=== PATIENT | female | born 1960 | race Caucasian/White ===

== ENCOUNTER → 2016-07-21 | Outpatient (CLI) | payer OTHER ==
[~2016-07-21] MED LIST: ASPI81CH CHEW; ATOR1TAB18 PO; Aspirin Chew PO; LISI10TA3 PO; METO25TA3 PO; PRAS10TA PO
[2016-07-21 13:42] LABS: ALKALINE PHOSPHATASE 80 U/L (45-117); ALT (GPT) 20 U/L (10-53); ANION GAP 8 MEQ/L (5-15); AST (GOT) 14 U/L (15-37); BICARBONATE 28.3 MEQ/L (21.0-32.0); BLOOD UREA NITROGEN 16 MG/DL (7-18); CHLORIDE 104 MEQ/L (98-107); GLOMERULAR FILTRATION RATE 93 ML/MIN (>89); GLUCOSE,FASTING 85 MG/DL (74-99); HDL CHOLESTEROL 56.1 MG/DL (40.0-60.0); LDL CHOLESTEROL 180 MG/DL (0-99); POTASSIUM 4.3 MEQ/L (3.5-5.1); SODIUM (NA) 140 MEQ/L (136-145); TOTAL BILIRUBIN ADULT 0.5 MG/DL (0.2-1.0)
[2016-07-21 16:26] LABS: BLOOD, URINE NEG (NEG); COMMENT (UR) CULT NOT INDICATED; CULTURE IF INDICATED CULT NOT INDICATED; GLUCOSE,URINE NEG (NEG); KETONE, URINE NEG (NEG); NITRITE,URINE NEG (NEG); SQUAMOUS EPITHELIAL CELL URINE <1 /hpf (0-5); URINE COLOR LIGHT-YELLOW (YELLW/STRAW)
== END ==
LOC: PLAB 04-23 08:10
PROVIDERS: ATTEND Family Medicine
DX: I10 Essential (primary) hypertension (principal); E66.01 Morbid (severe) obesity due to excess calories; E78.00 Pure hypercholesterolemia, unspecified
CPT/HCPCS: 80053; 80061; 81001; 84443

== ENCOUNTER 2016-10-13 00:43 | Inpatient (IN) | payer OTHER ==
[2016-10-13] VITALS (20 sets, daily range): BP systolic 121–160; BP diastolic 74–92; PULSE 50–80; RESP 16–24; TEMP 98–98.7; O2SAT 96–99
[~2016-10-13] VITALS: Ht 172.7 cm; Wt 104.5 kg
[2016-10-13] MEDS ORDERED: SODIUM CHLOR 0.9% 1000 ML INJ 1,000 ML IV ONE (00:45)
[2016-10-13] MEDS ORDERED: NITROGLYCERIN-DEXTROSE INJ 250 ML IV SCH (00:45)
[2016-10-13] MEDS ORDERED: HEPARIN SODIUM - IV 10,000 UNITS/10 ML VIAL IV STA (00:45)
[2016-10-13] MEDS ORDERED: ASPIRIN 81 MG CHEW TAB PO STA (00:45)
[2016-10-13] MEDS ORDERED: SODIUM CHLORIDE 0.9% FLUSH 10 ML FLUSH IVF PRN (00:45)
[2016-10-13] MEDS ORDERED: NITROGLYCERIN 0.4 MG SL 25 TABS/BTL SL STA (00:45)
--- NOTE | 2016-10-13 00:58 | PD ---
HPI Chief Complaint: STEMI Time Seen by Provider: 00:45 Travel History International Travel<30 days: No Contact w/Intl Traveler<30days: No History of Present Illness HPI The patient is a 55 year old female who presents to the [facility] emergency department with a history of sudden onset at approximately midnight of 20/10 right-sided chest pain. The patient reports that the pain is an aching sensation and radiates into the right shoulder, right shoulder blade and right arm. The patient reports that the pain is been constant. She reports having associated shortness of breath or diaphoresis. She denies having any vomiting associated with this. She reports that she has had chest pain in the past. Most recently she had an episode of chest pain that resolved on its own at 3 AM yesterday. The patient reports that she last had a stress test done that was reportedly unremarkable a few months ago. She denies ever having a cardiac catheterization. She reports having a history of hypertension and hyperlipidemia. She reports that her high blood pressure medication was discontinued after an episode of syncope and normal blood pressure subsequent to that. She reports that she smokes a pack of cigarettes per day. The patient prior to arrival was given by ambulance services 2 baby aspirin, a total of 4 sublingual nitroglycerin. The patient reports that the pain level is down to a 10 out of 10 in severity. The patient denies any recent fevers, cough, congestion, neck pain, abdominal pain, vomiting, diarrhea, urinary symptoms, or neurologic symptoms. [facility] Past Medical History Narrative Medical The patient's past medical history is significant for hyperlipidemia, prior history of hypertension, prior history of syncope. Cancer: No Cardiovascular Problems: Yes (HX: HTN) High Cholesterol: Yes Diabetes: No Diminished Hearing: No Endocrine: No Genitourinary: No Hepatitis: No Hiatal Hernia: No Hypertension: Yes (ok now) Immune Disorder: No Musculoskeletal: Yes Neurologic: No Psychiatric: No Reproductive: No Respiratory: Yes (hx pneumonia) Immunizations Current: No Thyroid Disease: No Past Surgical History Narrative Surgical The patient's past surgical history significant for an appendectomy, cholecystectomy Abdominal Surgery: Yes (cholecystectomy appendectomy at the same time) AICD: No Appendectomy: Yes Cholecystectomy: Yes Joint Replacement: No Pacemaker: No Other Surgery: Yes Social History Alcohol Use: Yes (1 GLASS WINE MONTHLY) Tobacco Use: Yes (1 PPD) Substance Use: No Allergies-Medications (Allergen,Severity, Reaction): Coded Allergies: No Known Allergies (Verified , 10/13/16) Reported Meds & Prescriptions Reported Meds & Active Scripts Active No Active Prescriptions or Reported Medications Narrative Medication She reports that she takes a lipid-lowering agent, however she cannot recall the name of it. Review of Systems General / Constitutional: No: Fever Eyes: No: Visual changes HENT: No: Headaches Cardiovascular: Positive: Chest Pain or Discomfort, Dyspnea on exertion Respiratory: Positive: Shortness of Breath, No: Cough Gastrointestinal: No: Vomiting, Abdominal Pain, Indigestion, Loss of Appetite Genitourinary: No: Dysuria Musculoskeletal: No: Pain Skin: No Rash Neurologic: No: Weakness, Focal Abnormalities, Change in Mentation, Slurred Speech, Sensory Disturbance Psychiatric: No: Depression Endocrine: No: Polydipsia Hematologic/Lymphatic: No: Easy Bruising Physical Exam Narrative General: The patient is a well-developed well-nourished female, uncomfortable appearing on arrival. Head and Neck exam: Head is normocephalic atraumatic. Eyes: EOMI, pupils are equal round and reactive to light. Nose: Midline septum with pink mucous membranes Mouth: Dentition unremarkable. Moist mucus membranes. Posterior oropharynx is not erythematous. No tonsillar hypertrophy. Uvula midline. Airway patent. Neck: No palpable lymphadenopathy. No nuchal rigidity. No thyromegaly. Cardiovascular: Regular rate and rhythm without murmurs, gallops, or rubs. No pulse deficit to the extremities and simultaneous auscultation and palpation of her radial artery. Lungs: Clear to auscultation bilaterally. No wheezes, rhonchi, or rales. Abdomen: Soft, without tenderness to palpation in all 4 quadrants of the abdomen. No guarding, rebound, or rigidity. Normal bowel sounds are audible. No tenderness on palpation of McBurney's point. Extremities: No clubbing, cyanosis, or edema. 2+ pulses in all 4 extremities. No calf tenderness on palpation. Neurologic Exam: Grossly nonfocal. Skin Exam: No rash noted. Intact skin that is warm and dry. Data Data Last Documented VS Vital Signs Date Time Temp Pulse Resp B/P Pulse Ox O2 Delivery O2 Flow Rate FiO2 10/13/16 00:43 98.2 65 24 160/92 99 Orders Complete Blood Count With Diff (10/13/16 00:45) I-Stat Profile (10/13/16 00:45) I-Stat Creatinine (10/13/16 00:45) Prothrombin Time / Inr (Pt) (10/13/16 00:45) Act Partial Throm Time (Ptt) (10/13/16 00:45) B-Type Natriuretic Peptide (10/13/16 00:45) Chest, Single Ap (10/13/16 00:45) Electrocardiogram (10/13/16 00:45) Oxygen Administration (10/13/16 00:45) Iv Access Insert/Monitor (10/13/16 00:45) Oximetry (10/13/16 00:45) Sodium Chlor 0.9% 1000 Ml Inj (Ns 1000 M (10/13/16 00:45) Sodium Chloride 0.9% Flush (Ns Flush) (10/13/16 00:45) Aspirin Chew (Aspirin Chew) (10/13/16 00:45) Nitroglycerin Sl (Nitrostat Sl) (10/13/16 00:45) Nitroglycerin-Dextrose Inj (Nitroglyceri (10/13/16 00:45) Heparin Inj (Heparin Inj) (10/13/16 00:45) Aspirin Chew (Aspirin Chew) (10/13/16 09:00) Aspirin Chew (Aspirin Chew) (10/13/16 09:00) Admit Order (Ed Use Only) (10/13/16 01:35) Labs Laboratory Tests Test 10/13/16 00:50 White Blood Count 8.3 TH/MM3 Red Blood Count 4.81 MIL/MM3 Hemoglobin 14.4 GM/DL Hematocrit 41.6 % Mean Corpuscular Volume 86.4 FL Mean Corpuscular Hemoglobin 30.0 PG Mean Corpuscular Hemoglobin 34.7 % Concent Red Cell Distribution Width 13.6 % Platelet Count 240 TH/MM3 Mean Platelet Volume 8.7 FL Neutrophils (%) (Auto) 44.3 % Lymphocytes (%) (Auto) 45.8 % Monocytes (%) (Auto) 7.9 % Eosinophils (%) (Auto) 1.3 % Basophils (%) (Auto) 0.7 % Neutrophils # (Auto) 3.7 TH/MM3 Lymphocytes # (Auto) 3.8 TH/MM3 Monocytes # (Auto) 0.7 TH/MM3 Eosinophils # (Auto) 0.1 TH/MM3 Basophils # (Auto) 0.1 TH/MM3 CBC Comment DIFF FINAL Differential Comment Prothrombin Time 11.2 SEC Prothromb Time International 1.0 RATIO Ratio Activated Partial 23.1 SEC Thromboplast Time B-Type Natriuretic Peptide 17 PG/ML MDM Medical Decision Making Medical Screen Exam Complete: Yes Emergency Medical Condition: Yes Medical Record Reviewed: Yes Interpretation(s) Last Impressions Chest X-Ray 10/13/16 0045 Signed Impressions: Service Date/Time: Thursday, October 13, 2016 00:41 - CONCLUSION: No acute disease. Lisandro Lane MD Differential Diagnosis STEMI, versus acute coronary syndrome, versus pericarditis Narrative Course During the course of the patients emergency department visit, the patients history, examination, and differential diagnosis were reviewed with the patient. The patient had IV access obtained and blood work sent for analysis. The patient was placed on a cracking and fanning machine operator with oximetry and blood pressure monitoring. An EKG was done on arrival that confirmed ST segment elevation in the anteroseptal leads. A STEMI alert was called. Dr. Rae the needle loom operator helper was called. He did agree to accept the patient for evaluation in the cardiac catheterization lab acutely. The patient was provided heparin by bolus, nitroglycerin drip was started. The patient was given additional 162 mg of aspirin by mouth. The patients laboratory studies were reviewed and remarkable for white count of 8.3, hemoglobin 14.4, platelets 240 with 45.8 lymphocytes, i-STAT with creatinine reveals a sodium of 138, potassium 6.4 which was repeated in 3.9, chloride 106, BUN 23, creatinine 0.6, glucose 111, BNP is 17. Radiology studies were reviewed and remarkable for a chest x-ray that showed no acute abnormality. The patient was transported by me and the nursing staff to the Cardiac laborer livestock. We awaited arrival of the cardiac catheterization. The patient's case was handed over to Dr. Rae upon his arrival at the cardiac catheterization lab. The patient was admitted to the hospital in guarded condition and sent to a bed under the care of the needle loom operator helper, Dr. Rae. Critical Care Narrative Aggregate critical care time was 35 minutes. Time to perform other separately billable procedures was not included in the critical care time. My time did not include minutes spent treating any other patients simultaneously or on activities that did not directly contribute to the patient's treatment. The services I provided to this patient were to treat and/or prevent clinically significant deterioration that could result in: Cardiac arrhythmia, sudden cardiac , respiratory failure, cardiovascular collapse. I provided critical care services requiring my management, as noted below: Chart data review, documentation time, medication orders and management, vital sign assessments/reviewing monitor data, ordering and reviewing lab tests, ordering and interpreting/reviewing x-rays and diagnostic studies, care of the patient and discussion of the patient with the admitting physicians. Physician Communication Physician Communication The patient's case was discussed with Dr. Rae. Diagnosis Primary Impression: STEMI (ST elevation myocardial infarction) Qualified Code: I21.3 - ST elevation myocardial infarction (STEMI), unspecified artery Admitting Information Admitting Physician Requests: Admit Scripts No Active Prescriptions or Reported Meds Kierra Infante MD Oct 13, 2016 00:58
[2016-10-13 01:03] LABS: AUTOMATED NEUTROPHIL # 3.7 TH/MM3 (1.8-7.7); BASOPHIL # 0.1 TH/MM3 (0-0.2); BASOPHIL % 0.7 % (0.0-2.0); EOSINOPHIL # 0.1 TH/MM3 (0-0.4); EOSINOPHIL % 1.3 % (0.0-4.0); HEMATOCRIT 41.6 % (35.0-46.0); HEMO FLAGS DIFF FINAL; LYMPH % 45.8 % (9.0-44.0); LYMPHOCYTE # 3.8 TH/MM3 (1.0-4.8); MEAN CELL VOLUME 86.4 FL (80.0-100.0); MEAN CORPUSCULAR HGB CONC 34.7 % (32.0-36.0); MONO % 7.9 % (0.0-8.0); NEUT % 44.3 % (16.0-70.0); PLATELET COUNT 240 TH/MM3 (150-450); RED BLOOD COUNT 4.81 MIL/MM3 (4.00-5.30); RED CELL DISTRIBUTION WIDTH 13.6 % (11.6-17.2); WHITE BLOOD COUNT 8.3 TH/MM3 (4.0-11.0)
[2016-10-13 01:11] LABS: I-STAT POTASSIUM 6.4 MMOL/L (3.5-4.9)
[2016-10-13 01:16] LABS: APTT (PATIENT) 23.1 SEC (24.3-30.1); PROTHROMBIN TIME - PATIENT 11.2 SEC (9.8-11.6)
--- NOTE | 2016-10-13 01:17 | RADRPT ---
EXAM DATE/TIME: 10/13/2016 00:41 [facility] COMPARISON: No previous studies available for comparison. INDICATIONS : Chest pain, STEMI alert. MEDICAL HISTORY : Hypertension. SURGICAL HISTORY : Appendectomy. Cholecystectomy. ENCOUNTER: Initial ACUITY: 1 day PAIN SCORE: 10/10 LOCATION: Bilateral chest FINDINGS: A single view of the chest demonstrates the lungs to be symmetrically aerated without evidence of mas s, infiltrate or effusion. The cardiomediastinal contours are unremarkable. Osseous structures are intact. CONCLUSION: No acute disease. Lisandro Lane MD on October 13, 2016 at 1:15 Board Certified Radiologist. This report was verified electronically.
[2016-10-13] MEDS ORDERED: MIDAZOLAM HCL 2 MG/2 ML VIAL ONE (01:39)
[2016-10-13] MEDS ORDERED: HEPARIN SODIUM - IV 10,000 UNITS/10 ML VIAL ONE (01:51)
[2016-10-13] MEDS ORDERED: PRASUGREL 10 MG TAB ONE (02:06)
[2016-10-13] MEDS ORDERED: ceFAZolin INJ 1,000 MG VIAL ONE (02:09)
[2016-10-13] MEDS ORDERED: SODIUM CHLOR 0.9% 1000 ML INJ 1,000 ML IV SCH (02:24)
[2016-10-13] MEDS ORDERED: MISC INFORMATION XX ONE (02:30)
[2016-10-13] MEDS ORDERED: ONDANSETRON HCL 4 MG/2 ML VIAL IV PRN (02:30)
[2016-10-13] MEDS ORDERED: ACETAMINOPHEN 325 MG TAB PO PRN ×3 (02:30→21:48)
[2016-10-13] MEDS ORDERED: ATROPINE SULFATE 1 MG/ML VIAL IV PRN (02:30)
[2016-10-13] MEDS ORDERED: PRASUGREL 10 MG TAB PO ONE ×2 (02:30→22:00)
[2016-10-13] MEDS ORDERED: PILL SPLITTER OTHER PRN (02:45)
--- NOTE | 2016-10-13 05:33 | MB ---
cc: ROBERTO MENDEZ DATE OF 11/05/1962 HISTORY October 13, 2016 REASON FOR CONSULTATION STEMI. HISTORY OF PRESENT ILLNESS 55-year-old female with past medical history significant for hypertension, hyperlipidemia and smoker who presented to the hospital with sudden onset of substernal chest pain that started tonight. She describes the pain has an aching sensation that radiates into her right shoulder, right shoulder blade and arm. The pain is constant and is associated with shortness of breath and diaphoresis. She denies fever, cough, palpitations, syncope, lightheadedness, bleeding issues, diarrhea, constipation, abdominal pain. In the emergency department she was started on a nitro drip and a heparin drip and given aspirin. REVIEW OF SYSTEMS Negative except for what is mentioned in the HPI. PAST MEDICAL HISTORY 1. Hyperlipidemia. 2. Hypertension. 3. Syncope. PAST SURGICAL HISTORY 1. Appendectomy. 2. Cholecystectomy. SOCIAL HISTORY Smoker Drinks alcohol socially. No illicit drug use. ALLERGIES No known drug allergies. HOME MEDICATIONS None. PHYSICAL EXAMINATION VITAL SIGNS: Temperature 98, respiratory rate 24, pulse 65, blood pressure 160/ 92. GENERALLY: Awake, alert and oriented x 3, in no acute distress. NECK: No JVD or carotid bruits. HEART: Regular rate and rhythm. No murmurs, rubs or gallops. LUNGS: Clear to auscultation bilaterally. No wheezes or rhonchi or rales. ABDOMEN: Obese. Positive bowel sounds. Soft and nondistended. EXTREMITIES: No cyanosis, no edema. Pulses throughout. EKG Sinus rhythm with ST elevations in the anterior leads, reciprocal changes in the inferior leads. LABORATORY DATA- PENDING ASSESSMENT AND PLAN 55-year-old female who presented with ST elevation myocardial infarction. The patient is currently hemodynamically stable, currently without chest pain. The patient will be taken to emergently to the cardiac crime laboratory analyst for early PCI. The risks, benefits of PCI including but not limited to bleeding, infection, acute kidney injury, emergent bypass surgery, stroke, neurovascular injury and have been explained to the patient. The patient understands the risks and she is willing to proceed. Further therapy to be determined Roberto Mendez MD ENVIRONMENTAL HEALTH TECHNICIAN/RADHA /1:38 AM /5:22 AM NORBERTO
--- NOTE | 2016-10-13 05:50 | MA ---
cc: ROBERTO MENDEZ DATE OF 1960 DATE OF SERVICE October 13, 2016 PROCEDURE PERFORMED 1. Left heart catheterization. 2. Selective right and left coronary angiography. 3. Left ventriculogram. 4. Successful PCI/TAB to LAD. INDICATIONS STEMI. DESCRIPTION OF PROCEDURE Consent signed. The patient was taken emergently to the label paster. The right groin was prepped and draped in sterile fashion. Using 1% lidocaine for local anesthesia and a micropuncture kit, a 6-Stateless sheath was inserted into the right common femoral artery. The right common femoral artery angiography was performed to confirm position of the sheath. Then selective right coronary angiography was performed with a JR-4 diagnostic catheter. Then left coronary angiography was performed with an EBU 3.5 6-Stateless guide. Angiography was taken in multiple views. There was a 100% occlusion of the proximal LAD. The vessel was wired with a Run-Through wire which was anchored distally into the LAD followed by predilation of the occlusion with a 2.5 x 12 balloon. We successfully opened the vessel. Then we inserted and deployed a 2.75x18 and to 2.75x8 drug-eluting stents. The stents were postdilated to high atmosphere with a Non-Compliant 3.0x15 balloon. Final angiographic views revealed good stent apposition and expansion with MAXIME-3 flow. The patient tolerated the procedure well without complications. The patient at the end of the procedure had no chest pain. Estimated blood loss less than 30 cc. Total contrast used 120 cc. The right groin access site was closed with a Perclose device. The patient was loaded with Prasugrel and IV heparin was used for anticoagulation. RESULTS The left ventricular pressure was 116/12 with an LVEDP of 24. The aortic pressure was 116/71 with a mean of 89. Left ventriculography revealed hypokinesis of the anterior wall with an estimated ejection fraction of 40-45%. There was no gradient upon pullback from the left ventricle to the aorta. ANGIOGRAPHY 1. Left main patent with nonobstructive coronary artery disease. 2. LAD 100% occluded in its proximal segment MAXIME-0 flow. 3. Left circumflex patent with MAXIME-3 flow, minimal luminal irregularities, is given collaterals through a weak OM1 branch to the LAD. 4. Right coronary artery is a dominant vessel, has minimal luminal irregularities and a 10% lesion proximally. However, for the most part has nonobstructive coronary artery disease. The PDA is patent and is given collaterals through the septals to the LAD. CONCLUSION 1. Successful PCI/TAB to the LAD in the setting of a STEMI. 2. Mild LV systolic dysfunction with an EF estimated to be at 40-45%. 3. Elevated LVEDP. RECOMMENDATIONS 1. Admit to [facility]. 2. Post-cath care. 3. Early ambulation after bed rest. 4. Gentle IV hydration. 5. Continue dual antiplatelet agent with aspirin and Prasugrel as well as aggressive medical management for secondary preventio of CAD with beta-blockers , TAD inhibitor, high-dose statins and long-acting nitrate. 6. Smoking cessation is strongly advised. 7. 2-Decho before discharge MD REBEKA Gilliam/RADHA /2:21 AM /5:33 AM MTDJacinto
[2016-10-13] MEDS: ASPIRIN 81 MG CHEW TAB PO SCH (08:21)
[2016-10-13] MEDS: METOPROLOL TARTRATE 25 MG TAB PO SCH ×2 (08:21→21:22)
[2016-10-13] MEDS: LISINOPRIL 10 MG TAB PO SCH (09:00)
[2016-10-13] MEDS ORDERED: ASPIRIN 81 MG CHEW TAB CHEW SCH ×2 (09:00)
--- NOTE | 2016-10-13 09:45 | HHI.HP ---
[facility] Service [facility] Primary Care Physician Rahul Butler MD Admission Diagnosis STEMI Diagnoses: Travel History International Travel<30 Days: No Contact w/Intl Traveler <30 Da: No Traveled to Known Affected Are: No Past Family Social History Allergies: Coded Allergies: No Known Allergies (Verified , 10/13/16) Physical Exam Vital Signs Vital Signs Date Time Temp Pulse Resp B/P Pulse Ox O2 Delivery O2 Flow Rate FiO2 10/13/16 03:29 70 10/13/16 03:20 98.0 72 20 130/78 98 10/13/16 00:43 98.2 65 24 160/92 99 Physical Exam GENERAL: This is a well-nourished, well-developed patient, in no apparent distress. SKIN: No rashes, ecchymoses or lesions. Cool and dry. HEAD: Atraumatic. Normocephalic. No temporal or scalp tenderness. EYES: Pupils equal round and reactive. Extraocular motions intact. No scleral icterus. No injection or drainage. ENT: Nose without bleeding, purulent drainage or septal hematoma. Throat without erythema, tonsillar hypertrophy or exudate. Uvula midline. Airway patent. NECK: Trachea midline. No JVD or lymphadenopathy. Supple, nontender, no meningeal signs. CARDIOVASCULAR: Regular rate and rhythm without murmurs, gallops, or rubs. RESPIRATORY: Clear to auscultation. Breath sounds equal bilaterally. No wheezes , rales, or rhonchi. GASTROINTESTINAL: Abdomen soft, non-tender, nondistended. No hepato-splenomegaly , or palpable masses. No guarding. MUSCULOSKELETAL: Extremities without clubbing, cyanosis, or edema. No joint tenderness, effusion, or edema noted. No calf tenderness. Negative Homans sign bilaterally. NEUROLOGICAL: Awake and alert. Cranial nerves II through XII intact. Motor and sensory grossly within normal limits. Five out of 5 muscle strength in all muscle groups. Normal speech. Laboratory Laboratory Tests Test 10/13/16 10/13/16 00:50 03:29 White Blood Count 8.3 Red Blood Count 4.81 Hemoglobin 14.4 Hematocrit 41.6 Mean Corpuscular Volume 86.4 Mean Corpuscular Hemoglobin 30.0 Mean Corpuscular Hemoglobin 34.7 Concent Red Cell Distribution Width 13.6 Platelet Count 240 Mean Platelet Volume 8.7 Neutrophils (%) (Auto) 44.3 Lymphocytes (%) (Auto) 45.8 Monocytes (%) (Auto) 7.9 Eosinophils (%) (Auto) 1.3 Basophils (%) (Auto) 0.7 Neutrophils # (Auto) 3.7 Lymphocytes # (Auto) 3.8 Monocytes # (Auto) 0.7 Eosinophils # (Auto) 0.1 Basophils # (Auto) 0.1 CBC Comment DIFF FINAL Differential Comment Prothrombin Time 11.2 Prothromb Time International 1.0 Ratio Activated Partial 23.1 Thromboplast Time B-Type Natriuretic Peptide 17 Bedside Hemoglobin 14.6 Bedside Hematocrit 43.0 Bedside Sodium 138 Bedside Potassium 6.4 Bedside Chloride 106 Bedside Blood Urea Nitrogen 23 Bedside Creatinine 0.6 Bedside Glucose 111 Result Diagram: 10/13/16 0050 Assessment and Plan Assessment and Plan Patient seen and examined Please refer to admission h & p for details STEMI s/p ctradiac cath with 100% LAD occlusion s/p PCI chest pain resolved some bleeding from Right groin, pressure applied on statin, ASA,BB, Aguilar i, and Effient may need to add long acting nitrate discussed with patient discussed with nursing staff discussed with Franca FELDER Physician Certification 2 Midnight Certification Type: Admission for Inpatient Services Order for Inpatient Services The services are ordered in accordance with Medicare regulations or non- Medicare payer requirements, as applicable. In the case of services not specified as inpatient-only, they are appropriately provided as inpatient services in accordance with the 2-midnight benchmark. Estimated LOS (days): 3 days is the estimated time the patient will need to remain in the hospital, assuming treatment plan goals are met and no additional complications. Post-Hospital Plan: Home Hyacinth Campbell MD Oct 13, 2016 09:45
[2016-10-13] MEDS ORDERED: IOHEXOL 350 MG/ML 100 ML BTL (for Cath Lab) OTHER ONE (10:27)
[2016-10-13] MEDS ORDERED: IOHEXOL 350 MG/ML 50 ML BTL (for Cath Lab) OTHER ONE (10:27)
--- NOTE | 2016-10-13 11:09 | MB ---
cc: REYMUNDO RYAN MD DATE OF CONSULTATION: 10/13/2016 DATE OF : 1960 REASON FOR CONSULTATION Medical management for patient's co-morbidities. HISTORY OF PRESENT ILLNESS This is a 55-year-old obese white female who came into the emergency room with midsternal and right-sided chest pain. The patient notes that she was recently helping her daughter move and noted some chest spine that waxed and waned at 0300 in the morning. The patient states the pain lasted for about a half hour but did go away and she able to rest. The patient was in her usual events of the day which included visiting with some of her family. She lay down to go to sleep at approximately 11:45 and was awakened with a more intense midsternal chest pain that radiated into the right side of her chest. She did note numbness and tingling in her right arm followed by some diaphoresis. The patient called a close family friend who stated that she needed to go to the emergency room. She noted the pain was a 10/10. She denied any neck pain, no abdominal pain, no nausea, no vomiting, no diarrhea, no constipation. The patient denied any headache, she was alert and oriented and was able to give a good history on her current situation. The patient is a tobacco user since her 20s. The patient notes in 2015 that she had a very similar event with chest pain and had a work-up which included a stress test which was negative. At that time the pain was not as severe as this pain and was thought to be related to stress. The patient is now post heart catheterization with stents x2. She is resting in the bed and a fairly good historian. PAST MEDICAL HISTORY 1. Hyperlipidemia. 2. Hypertension. 3. Prior history of syncope. 4. Arthritis. 5. History of pneumonia. PAST SURGICAL HISTORY 1. Cholecystectomy. 2. Appendectomy. ALLERGIES No known allergies. MEDICATIONS Reported medications: Patient notes she has taken some type of lipid medication but does not know the name of it. No other medications. FAMILY HISTORY Heart disease, diabetes, hypertension, CVA. SOCIAL HISTORY The patient has never been , currently lives in her own home. Her mother lives with her. She has been a tobacco user, a pack a day since her 20s. Occasional alcohol intake with a glass of wine. She averages about one glass a month. No other illicit drugs. REVIEW OF SYSTEMS A 12-point review was done. Positives are noted in the HPI which include chest pain, diaphoresis, achy sensation. The patient had a BM yesterday described as her normal routine. She notes she is a coffee drinker. Otherwise systems are negative or unremarkable. PHYSICAL EXAMINATION VITAL SIGNS: Temperature 98, pulse 70, respirations 20, blood pressure 130/78, noted to be 160/92. O2 sat 98 on room air. GENERAL: An obese white female, looks to be her stated age resting in the bed, alert, oriented, cooperative and a good historian. She is talkative. HEENT: Atraumatic, normocephalic. Pupils equal, round, reactive to light and accommodation. Mucous membranes are moist and pink. NECK: Thick, supple. CARDIOVASCULAR: S1, S2. No murmur, rub or gallops appreciated. Heart sounds are mildly distant. She has no edema and pulses are intact. PULMONARY: Lung sounds essentially clear anteriorly and posteriorly with no wheezes, rales or rhonchi. ABDOMEN: Round, soft, nontender, nondistended. Active bowel sounds in all four quadrants. EXTREMITIES: She moves her extremities with purpose. She has equal hand painter bottom. She can overcome resistance in her lower extremities. NEUROLOGIC: Alert and oriented. Speech is clear. PSYCHIATRIC: Appropriate mood and affect. LABORATORY DATA WBC count 8.3, RBC 4.81, hemoglobin 14.4, hematocrit 41.6, platelet count 240, lymphocyte auto count percentage 45.8. INR is 1. Sodium on the POC machine 138, potassium 6.4, chloride 106, BUN 23, creatinine 0.6, glucose 111. BNP is 17. IMAGING DATA Chest x-ray shows no acute disease. ASSESSMENT 1. Non-ST elevation myocardial infarction. The patient is status post heart catheterization with two stents to the LAD. 2. Tobacco abuse. 3. Hypertension. 4. Hyperlipidemia. PLAN Monitor her medical management which will include any medications needed for blood pressure and hyperlipidemia as well as nitrates. The patient is status post cardiac catheterization per Dr. Rae with two stents applied. She is currently on bed rest. Sand bag to the right groin. She is receiving gentle hydration at 100 cc an hour. 2-D echo with Doppler was performed. Currently the patient is on Effient as well as aspirin, low dose Lopressor and p.r.n. The patient is being placed on a heart-healthy diet this a.m. We will also look at a low dose TAD inhibitor. The patient will receive early ambulation after bed rest. Post cath care. She will be maintained on telemetry. We will recheck a BMP today with special attention to her potassium level. In the emergency room the patient was treated with IV heparin, IV nitroglycerin, aspirin chews, IV fluids. She received EKGs and was placed on constant ECG monitoring with O2 and IV access. Dr. Rae of cardiology was called and she was taken to the labor commissioner with successful PCI/TAB to the LAD in the setting of a STEMI. We will monitor her this hospital stay for medical management with Dr. Rae. Thank you very much for the consult. Dictated by: BRADFORD Decker MD MARY LOU Downs/STEVEN /8:33 AM /10:38 AM
[2016-10-13 11:34] LABS: POTASSIUM 3.9 MEQ/L (3.5-5.1)
--- NOTE | 2016-10-13 14:30 | EKG ---
Date Performed: 10/13/2016 Time Performed: 00:47:55 PTAGE: 55 years EKG: Sinus rhythm Anteroseptal ST segment elevation infarct with reciprocal change. The T-wave changes are hyperacute and the EKG is consistent with an extensive anterior myocardial infarction. All of these changes are new since the prior tracing. ABNORMAL ECG PREVIOUS TRACING : 03/21/2016 22.10 DOCTOR: Belen Polk Interpretating Date/Time 10/13/2016 14:30:05
--- NOTE | 2016-10-13 15:27 | EC ---
Study Study Date:10/13/2016 STUDY CONCLUSIONS SUMMARY - Left ventricle: The cavity size was normal. Wall thickness was increased in a pattern of mild LVH. Systolic function was moderately reduced. The estimated ejection fraction was in the range of 35% to 40%. Moderate hypokinesis of the mid-distal anterior and apical myocardium. - Aortic valve: Valve area: 2.05cm^2 (Vmax). If LV function is below 40, please consider prescribing an ACEI or ARB or document rationale for non-use. PROCEDURE DATA STUDY STATUS: Elective. Procedure: Transthoracic echocardiography. Image quality was good. Scanning was performed from the parasternal, apical, and subcostal acoustic windows. Study completion: The patient tolerated the procedure well. Transthoracic echocardiography. M-mode, complete 2D, complete spectral Doppler, and color Doppler. Height: Height: 63in. Weight: Weight: 230.5lb. Body mass index: BMI: 40.9kg/m^2. Body surface area: BSA: 2.06m^2. Patient status: Inpatient. CARDIAC ANATOMY LEFT VENTRICLE: The cavity size was normal. Wall thickness was increased in a pattern of mild LVH. Systolic function was moderately reduced. The estimated ejection fraction was in the range of 35% to 40%. Regional wall motion abnormalities: Moderate hypokinesis of the mid-distal anterior and apical myocardium. AORTIC VALVE: Trileaflet; normal thickness leaflets. Doppler: Transvalvular velocity was within the normal range. There was no stenosis. No regurgitation. Valve area: 2.05cm^2 (Vmax). Indexed valve area: 1cm^2/m^2 (Vmax). AORTA: Aortic root: The aortic root was normal in size. MITRAL VALVE: Structurally normal valve. Doppler: Transvalvular velocity was within the normal range. There was no evidence for stenosis. No regurgitation. Valve area by pressure half-time: 3.24cm^2. Indexed valve area by pressure half-time: 1.57cm^2/m^2. Peak gradient: 3mm Hg (D). LEFT ATRIUM: The atrium was normal in size. RIGHT VENTRICLE: The cavity size was normal. Wall thickness was normal. PULMONIC VALVE: Doppler: Transvalvular velocity was within the normal range. There was no evidence for stenosis. No regurgitation. TRICUSPID VALVE: Structurally normal valve. Doppler: Transvalvular velocity was within the normal range. No regurgitation. Peak gradient: 23mm Hg (D). PULMONARY ARTERY: The main pulmonary artery was normal-sized. Systolic pressure was within the normal range. RIGHT ATRIUM: The atrium was normal in size. PERICARDIUM: There was no pericardial effusion. SYSTEMIC VEINS: Inferior vena cava: The vessel was normal in size. Patient weight: 230.5lb _Ejection fraction:_ 65-75% _Fractional shortening:_ 32% up to 5Kg 5-11.5Kg 11.6-22.9Kg 23-45Kg 45-57Kg Aortic Root 7-13 <17 13-22 17-27 17-27 LA diam 6-13 <23 24-38 33-47 37-40 RVID 10-17 7-15 7-15 7-18 8-17 LVIDd 12-22 <32 24-38 33-47 37-40 LVPW 2-4 3-6 5-7 6-8 7-8 IVS 2-4 3-6 5-7 6-8 7-8 BASIC MEASUREMENTS ADULT NORMAL Left ventricle LV internal dimension, ED, chordal *41.2 mm 43-52 level, PLAX LV internal dimension, ES, chordal 27.9 mm 23-38 level, PLAX Fractional shortening, chordal level, 32 % >29 PLAX LV posterior wall thickness, ED 11.8 mm IVS/LVPW ratio, ED 1.02 <1.3 Volume, ED, MOD, 1-plane 115 ml Volume, ES, MOD, 1-plane 60 ml Ejection fraction, MOD, 1-plane 47 % Stroke volume, MOD, 1-plane 55 ml Volume index, ED, MOD, 1-plane 56 ml/m^2 Volume index, ES, MOD, 1-plane 29 ml/m^2 Stroke index, MOD, 1-plane 26.7 ml/m^2 Ventricular septum Septal thickness, ED 12 mm Aortic valve Leaflet separation 24 mm 15-26 Left atrium Anterior-posterior dimension 29 mm Anterior-posterior dimension index 1.41 cm/m^2 <2.2 Right ventricle RV internal dimension, ED, PLAX 22.1 mm 19-38 BASIC MEASUREMENTS ADULT NORMAL Aortic valve Leaflet separation 24 mm 15-26 Aorta Root diameter, ED 37 mm 20-37 DOPPLER MEASUREMENTS ADULT NORMAL Main pulmonary artery Pressure, S 20 mm Hg =30 Aortic valve Peak velocity, S 130 cm/s Valve area, Vmax 2.05 cm^2 Valve area index, Vmax 1 cm^2/m^2 Mitral valve Peak E-wave velocity 84.4 cm/s Peak A-wave velocity 51.3 cm/s Pressure half-time 68 ms Peak gradient, D 3 mm Hg Peak E/A ratio 1.6 Valve area, pressure half-time 3.24 cm^2 Valve area index, pressure half-time 1.57 cm^2/m^2 Tricuspid valve Peak gradient, D 23 mm Hg Maximal inflow velocity 239 cm/s Regurgitant peak velocity 178 cm/s Peak RV-RA gradient, S 13 mm Hg Maximal regurgitant velocity 178 cm/s Systemic veins Estimated CVP 10 mm Hg Right ventricle RV pressure, S 23 mm Hg <30 Pulmonic valve Peak velocity, S 82.8 cm/s LEGEND: Mean values are shown as u=mean value. Asterisk (*) gutierrez values outside specified normal range. Prepared and signed by Wilner Bauman [id number]
[2016-10-13] MEDS ORDERED: ATORVASTATIN 80 MG TAB PO SCH (21:00)
[2016-10-14] VITALS (13 sets, daily range): BP systolic 104–117; BP diastolic 58–71; PULSE 48–86; RESP 16–18; TEMP 98.3–98.9; O2SAT 96–97
[2016-10-14 06:54] LABS: AUTOMATED NEUTROPHIL # 3.5 TH/MM3 (1.8-7.7); BASOPHIL % 0.4 % (0.0-2.0); EOSINOPHIL # 0.1 TH/MM3 (0-0.4); EOSINOPHIL % 1.1 % (0.0-4.0); HEMATOCRIT 37.8 % (35.0-46.0); HEMO FLAGS DIFF FINAL; LYMPH % 38.9 % (9.0-44.0); LYMPHOCYTE # 2.8 TH/MM3 (1.0-4.8); MEAN CELL VOLUME 88.2 FL (80.0-100.0); MEAN CORPUSCULAR HEMOGLOBIN 29.3 PG (27.0-34.0); MEAN CORPUSCULAR HGB CONC 33.2 % (32.0-36.0); MONO % 10.8 % (0.0-8.0); NEUT % 48.8 % (16.0-70.0); PLATELET COUNT 143 TH/MM3 (150-450); RED BLOOD COUNT 4.29 MIL/MM3 (4.00-5.30); RED CELL DISTRIBUTION WIDTH 13.1 % (11.6-17.2); WHITE BLOOD COUNT 7.2 TH/MM3 (4.0-11.0)
[2016-10-14 07:13] LABS: ANION GAP 7 MEQ/L (5-15); BLOOD UREA NITROGEN 11 MG/DL (7-18); CHLORIDE 109 MEQ/L (98-107); GLOMERULAR FILTRATION RATE 103 ML/MIN (>89); POTASSIUM 3.8 MEQ/L (3.5-5.1); SODIUM (NA) 142 MEQ/L (136-145)
[2016-10-14] MEDS: ASPIRIN 81 MG CHEW TAB PO SCH (08:45)
[2016-10-14] MEDS: LISINOPRIL 10 MG TAB PO SCH (08:46)
[2016-10-14] MEDS: METOPROLOL TARTRATE 25 MG TAB PO SCH (08:46)
--- NOTE | 2016-10-14 08:53 | PD.CARD.PN ---
Subjective Subjective Remarks no complaint chest pain free ambulating without difficulty Objective Medications Current Medications Medications (Trade) Dose Ordered Sig/Lauri Route Start Time Stop Time Status Last Admin Sodium Chloride 2 ml 2 ml UNSCH PRN IVF 10/13/16 00:45 (Nitroglycerin-Dextrose Inj) 250 ml @ 0 mls/hr TITRATE IV 10/13/16 00:45 10/13/16 01:25 (Aspirin Chew) 81 mg DAILY PO 10/13/16 09:00 10/14/16 08:45 (Effient) 10 mg DAILY PO 10/14/16 09:00 10/14/16 08:45 (Atropine Inj) 0.5 mg UNSCH PRN IV 10/13/16 02:30 (Zofran Inj) 4 mg Q4H PRN IV 10/13/16 02:30 (Lopressor) 12.5 mg BID PO 10/13/16 09:00 10/14/16 08:46 (Lipitor) 80 mg HS PO 10/13/16 21:00 10/13/16 21:21 (Pill Splitter) 1 ea UNSCH PRN OTHER 10/13/16 02:45 (Prinivil) 10 mg DAILY PO 10/13/16 09:00 10/14/16 08:46 (Tylenol) 650 mg Q4H PRN PO 10/13/16 21:48 Vital Signs / I&O Vital Signs Date Time Temp Pulse Resp B/P Pulse Ox O2 Delivery O2 Flow Rate FiO2 10/14/16 06:00 49 10/14/16 05:00 56 10/14/16 04:00 48 10/14/16 04:00 98.9 82 16 117/58 97 10/14/16 03:00 56 10/14/16 02:00 54 10/14/16 01:00 66 10/14/16 00:00 54 10/14/16 00:00 98.7 70 16 104/60 96 10/13/16 23:00 50 10/13/16 22:00 54 10/13/16 21:00 58 10/13/16 20:00 98.7 80 16 121/91 98 10/13/16 20:00 80 10/13/16 19:00 66 10/13/16 18:00 76 10/13/16 17:00 72 10/13/16 16:00 67 10/13/16 16:00 98.1 73 16 128/76 96 10/13/16 15:00 72 10/13/16 14:00 54 10/13/16 13:00 52 10/13/16 12:00 56 10/13/16 12:00 98.2 64 16 122/74 98 10/13/16 11:00 52 10/13/16 10:00 60 10/13/16 09:00 56 I/O 10/13/16 10/13/16 10/13/16 10/14/16 10/14/16 10/14/16 07:00 15:00 23:00 07:00 15:00 23:00 Intake Total 1440 ml 240 ml Output Total 1200 ml Balance 240 ml 240 ml Intake Oral 540 ml 240 ml IV Total 900 ml Output Urine Total 1200 ml # Voids 3 # Bowel Movements 0 Physical Exam GENERAL: Well-nourished, well-developed patient. SKIN: Warm and dry. HEAD: Normocephalic. EYES: No scleral icterus. No injection or drainage. NECK: Supple, trachea midline. No JVD or lymphadenopathy. CARDIOVASCULAR: Regular rate and rhythm without murmurs, gallops, or rubs. RESPIRATORY: Breath sounds equal bilaterally. No accessory muscle use. GASTROINTESTINAL: Abdomen soft, non-tender, nondistended. EXTREMITIES: No cyanosis, or edema. NEUROLOGICAL: Awake, alert, and oriented x 3. Non-focal. Laboratory Laboratory Tests Test 10/13/16 10/14/16 11:00 05:30 Sodium Level 141 MEQ/L 142 MEQ/L Potassium Level 3.9 MEQ/L 3.8 MEQ/L Chloride Level 108 MEQ/L 109 MEQ/L Carbon Dioxide Level 23.0 MEQ/L 26.0 MEQ/L Anion Gap 10 MEQ/L 7 MEQ/L Blood Urea Nitrogen 10 MG/DL 11 MG/DL Creatinine 0.54 MG/DL 0.60 MG/DL Estimat Glomerular Filtration 117 ML/MIN 103 ML/MIN Rate Random Glucose 81 MG/DL 79 MG/DL Calcium Level 8.6 MG/DL 8.6 MG/DL White Blood Count 7.2 TH/MM3 Red Blood Count 4.29 MIL/MM3 Hemoglobin 12.5 GM/DL Hematocrit 37.8 % Mean Corpuscular Volume 88.2 FL Mean Corpuscular Hemoglobin 29.3 PG Mean Corpuscular Hemoglobin 33.2 % Concent Red Cell Distribution Width 13.1 % Platelet Count 143 TH/MM3 Mean Platelet Volume 8.5 FL Neutrophils (%) (Auto) 48.8 % Lymphocytes (%) (Auto) 38.9 % Monocytes (%) (Auto) 10.8 % Eosinophils (%) (Auto) 1.1 % Basophils (%) (Auto) 0.4 % Neutrophils # (Auto) 3.5 TH/MM3 Lymphocytes # (Auto) 2.8 TH/MM3 Monocytes # (Auto) 0.8 TH/MM3 Eosinophils # (Auto) 0.1 TH/MM3 Basophils # (Auto) 0.0 TH/MM3 CBC Comment DIFF FINAL Differential Comment Troponin I GREATER THAN 40.00 NG/ML Imaging Last Impressions Chest X-Ray 10/13/16 0045 Signed Impressions: Service Date/Time: Thursday, October 13, 2016 00:41 - CONCLUSION: No acute disease. Lisandro Lane MD Assessment and Plan Problem List: (1) STEMI (ST elevation myocardial infarction) Assessment and Plan: s/p high risk PCI/TAB to LAD Echo 35-40% EF on ACEi DAPT changed to ASA and Effient Cont aggressive medical therapy for CAD Encourage ambulation Stable to d/c from CV standpoint Smoking cessation f/u with me in 10 days. (2) Chest pain, atypical (3) Tobacco abuse (4) Hyperlipidemia Problem Qualifiers (1) STEMI (ST elevation myocardial infarction): Qualified Code: I21.3 - ST elevation myocardial infarction (STEMI), unspecified artery Ricardo Lopez MD Oct 14, 2016 08:53
[2016-10-14] MEDS ORDERED: PRASUGREL 10 MG TAB PO SCH (09:00)
[2016-10-14] MEDS ORDERED: ATOR1TAB18 PO (10:32)
[2016-10-14] MEDS ORDERED: LISI10TA3 PO (10:32)
[2016-10-14] MEDS ORDERED: METO25TA3 PO (10:32)
[2016-10-14] MEDS ORDERED: Aspirin Chew PO ×2 (10:32→11:15)
[2016-10-14] MEDS ORDERED: PRAS10TA PO (10:32)
--- NOTE | 2016-10-14 11:14 | HHI.PR ---
Subjective Interval History awake alert and oriented no chest pain ambulating anxious for discharge no other complaints Vitals/Results Intake & Output 10/13/16 10/13/16 10/14/16 15:00 23:00 07:00 Intake Total 1440 ml 240 ml Output Total 1200 ml Balance 240 ml 240 ml Intake Oral 540 ml 240 ml IV Total 900 ml Output Urine Total 1200 ml # Voids 3 # Bowel Movements 0 Vital Signs Vital Signs Date Time Temp Pulse Resp B/P Pulse Ox O2 Delivery O2 Flow Rate FiO2 10/14/16 10:08 61 10/14/16 09:24 62 10/14/16 08:00 62 10/14/16 07:00 98.3 76 18 109/71 97 10/14/16 07:00 70 10/14/16 06:00 49 10/14/16 05:00 56 10/14/16 04:00 48 10/14/16 04:00 98.9 82 16 117/58 97 10/14/16 03:00 56 10/14/16 02:00 54 10/14/16 01:00 66 10/14/16 00:00 54 10/14/16 00:00 98.7 70 16 104/60 96 10/13/16 23:00 50 10/13/16 22:00 54 10/13/16 21:00 58 10/13/16 20:00 98.7 80 16 121/91 98 10/13/16 20:00 80 10/13/16 19:00 66 10/13/16 18:00 76 10/13/16 17:00 72 10/13/16 16:00 67 10/13/16 16:00 98.1 73 16 128/76 96 10/13/16 15:00 72 10/13/16 14:00 54 10/13/16 13:00 52 10/13/16 12:00 56 10/13/16 12:00 98.2 64 16 122/74 98 CBC/BMP: 10/14/16 0530 10/14/16 0530 Lab Results Laboratory Tests Test 10/14/16 05:30 White Blood Count 7.2 TH/MM3 Red Blood Count 4.29 MIL/MM3 Hemoglobin 12.5 GM/DL Hematocrit 37.8 % Mean Corpuscular Volume 88.2 FL Mean Corpuscular Hemoglobin 29.3 PG Mean Corpuscular Hemoglobin 33.2 % Concent Red Cell Distribution Width 13.1 % Platelet Count 143 TH/MM3 Mean Platelet Volume 8.5 FL Neutrophils (%) (Auto) 48.8 % Lymphocytes (%) (Auto) 38.9 % Monocytes (%) (Auto) 10.8 % Eosinophils (%) (Auto) 1.1 % Basophils (%) (Auto) 0.4 % Neutrophils # (Auto) 3.5 TH/MM3 Lymphocytes # (Auto) 2.8 TH/MM3 Monocytes # (Auto) 0.8 TH/MM3 Eosinophils # (Auto) 0.1 TH/MM3 Basophils # (Auto) 0.0 TH/MM3 CBC Comment DIFF FINAL Differential Comment Sodium Level 142 MEQ/L Potassium Level 3.8 MEQ/L Chloride Level 109 MEQ/L Carbon Dioxide Level 26.0 MEQ/L Anion Gap 7 MEQ/L Blood Urea Nitrogen 11 MG/DL Creatinine 0.60 MG/DL Estimat Glomerular Filtration 103 ML/MIN Rate Random Glucose 79 MG/DL Calcium Level 8.6 MG/DL Troponin I GREATER THAN 40.00 NG/ML Assessment/Plan Assessment/Plan PHYSICAL EXAMINATION GENERAL: An obese white female, looks to be her stated age resting in the bed, alert, oriented, cooperative. HEENT: Atraumatic, normocephalic. Pupils equal, round, reactive to light and accommodation. Mucous membranes are moist and pink. NECK: Thick, supple. CARDIOVASCULAR: S1, S2. No murmur, rub or gallops appreciated. Heart sounds are mildly distant. She has no edema and pulses are intact. PULMONARY: Lung sounds essentially clear anteriorly and posteriorly with no wheezes, rales or rhonchi. ABDOMEN: Round, soft, nontender, nondistended. Active bowel sounds in all four quadrants. EXTREMITIES: She moves her extremities with purpose. She has equal hand specialist physicians. She can overcome resistance in her lower extremities. Groin site looks ok. NEUROLOGIC: Alert and oriented. Speech is clear. PSYCHIATRIC: Appropriate mood and affect. ASSESSMENT 1. ST elevation myocardial infarction. The patient is status post heart catheterization with two stents to the LAD. 2. Tobacco abuse. 3. Hypertension. 4. Hyperlipidemia. PLAN Patient seen and examined chest pain free ambulating no bleeding from groin site on ASA, effient, Aguilar i , BB and statin cleared by Cradiology for discharge heart healthy diet labs noted ok to d/c home outpatient follow up with cardiology in 10 days discussed with patient discussed with nursing staff Hyacinth Campbell MD Oct 14, 2016 11:14
--- NOTE | 2016-10-14 17:08 | HHI.DS ---
Discharge Summary Admission Date Oct 13, 2016 at 01:37 Discharge Date: Oct 14, 2016 Admitting Diagnosis STEMI Procedures Cardiac catheterization Brief History This was a 55-year-old obese white female who came into the emergency room with midsternal and right-sided chest pain. The patient noted that she was recently helping her daughter move and noted some chest spine that waxed and waned at 0300 in the morning. The patient stated the pain lasted for about a half hour but did go away and she able to rest. The patient was doing her usual events of the day which included visiting with some of her family. She lay down to go to sleep at approximately 11:45 and was awakened with a more intense midsternal chest pain that radiated into the right side of her chest. She did note numbness and tingling in her right arm followed by some diaphoresis. The patient called a close family friend who stated that she needed to go to the emergency room. She noted the pain was a 10/10. She denied any neck pain, no abdominal pain, no nausea, no vomiting, no diarrhea, no constipation. The patient denied any headache, she was alert and oriented and was able to give a good history on her current situation. The patient was a tobacco user since her 20s. The patient notes in 2015 that she had a very similar event with chest pain and had a work-up which included a stress test which was negative. At that time the pain was not as severe as this pain and was thought to be related to stress. The patient is now post heart catheterization with stents x2. She was resting in the bed and a fairly good historian. CBC/BMP: 10/14/16 0530 10/14/16 0530 Significant Findings Laboratory Tests Test 10/13/16 10/13/16 10/13/16 10/14/16 00:50 03:29 11:00 05:30 Lymphocytes (%) (Auto) 45.8 % (9.0-44.0) Activated Partial 23.1 SEC Thromboplast Time (24.3-30.1) Bedside Potassium 6.4 MMOL/L (3.5-4.9) Bedside Glucose 111 MG/DL (60-95) Chloride Level 108 MEQ/L 109 MEQ/L (98-107) (98-107) Platelet Count 143 TH/MM3 (150-450) Monocytes (%) (Auto) 10.8 % (0.0-8.0) Troponin I GREATER THAN 40.00 NG/ML (0.02-0.05) PE at Discharge GENERAL: An obese white female, looks to be her stated age resting in the bed, alert, oriented, cooperative. HEENT: Atraumatic, normocephalic. Pupils equal, round, reactive to light and accommodation. Mucous membranes are moist and pink. NECK: Thick, supple. CARDIOVASCULAR: S1, S2. No murmur, rub or gallops appreciated. Heart sounds are mildly distant. She has no edema and pulses are intact. PULMONARY: Lung sounds essentially clear anteriorly and posteriorly with no wheezes, rales or rhonchi. ABDOMEN: Round, soft, nontender, nondistended. Active bowel sounds in all four quadrants. EXTREMITIES: She moves her extremities with purpose. She has equal hand precision lens grinder apprentice. She can overcome resistance in her lower extremities. Groin site looks ok. NEUROLOGIC: Alert and oriented. Speech is clear. PSYCHIATRIC: Appropriate mood and affect. Hospital Course These are some of the diagnoses used to take care of this patient during her hospital stay. 1. ST elevation myocardial infarction. The patient is status post heart catheterization with two stents to the LAD. 2. Tobacco abuse. 3. Hypertension. 4. Hyperlipidemia. Patient had immediate cardiac catheterization done early a.m. hours after she came in the hospital. She had stent placed, and was monitored postop without any chest pain or shortness of breath. Patient's medications were reconciled that were needed, she was allowed to recuperate and rest and be monitored for any chest pain. Patient was maintained on telemetry, a dysrhythmias noted Vital signs were monitored every 4 hours, as well as patient's labs. Patient seen and examined daily and when necessary per hospitalist and cardiology chest pain free after cardiac catheter done Activity was gradually increased after the cardiac catheter performed in her bed rest was up, patient was ambulating in [place] day of discharge. no bleeding from groin site on ASA, effient, Aguilar i , BB and statin cleared by Cradiology for discharge heart healthy diet labs noted ok to d/c home on 10/14/16 outpatient follow up with cardiology in 10 days discussed with patient discussed with nursing staff Pt Condition on Discharge: Stable Discharge Disposition: Discharge Home Discharge Instructions DIET: Follow Instructions for: Heart Healthy Diet Activities you can perform: Regular-No Restrictions Follow up Referrals: Cardiology - 10 Days with juliana Malagon New Medications: Atorvastatin (Atorvastatin) 80 Mg Tab 80 MG PO HS hYPERLIPIDEMIA #30 TAB Lisinopril (Lisinopril) 10 Mg Tab 10 MG PO DAILY CAD #30 TAB Metoprolol Tartrate (Metoprolol Tartrate) 25 Mg Tab 12.5 MG PO BID CAD #60 TAB Prasugrel (Effient) 10 Mg Tab 10 MG PO DAILY CAD #30 TAB ([Aspirin Chew]) 81 MG CHEW 81 MG PO DAILY #30 TAB.CHEW Franca Hernandez Oct 14, 2016 17:08
== END 2016-10-14 13:29 | disposition home or self-care (01) | DRG 247 ==
LOC: NEPE 00:43 → NEDA 01:37 → HCIS 02:35
PROVIDERS: ADMIT Radiology Vascular & Interventional Radiology; ATTEND Radiology Vascular & Interventional Radiology
PROC: 027035Z Dilation of Coronary Artery, One Artery with Two Drug-eluting Intraluminal Devices, Percutaneous Approach (ICD-10-PCS; principal; 2016-10-13)
PROC: 4A023N7 Measurement of Cardiac Sampling and Pressure, Left Heart, Percutaneous Approach (ICD-10-PCS; 2016-10-13)
PROC: B2111ZZ Fluoroscopy of Multiple Coronary Arteries using Low Osmolar Contrast (ICD-10-PCS; 2016-10-13)
PROC: B2151ZZ Fluoroscopy of Left Heart using Low Osmolar Contrast (ICD-10-PCS; 2016-10-13)
PROC: B41F1ZZ Fluoroscopy of Right Lower Extremity Arteries using Low Osmolar Contrast (ICD-10-PCS; 2016-10-13)
DX: I21.3 ST elevation (STEMI) myocardial infarction of unspecified site (principal); I10 Essential (primary) hypertension; I25.10 Atherosclerotic heart disease of native coronary artery without angina pectoris; E78.5 Hyperlipidemia, unspecified; F17.210 Nicotine dependence, cigarettes, uncomplicated; E66.9 Obesity, unspecified; M19.90 Unspecified osteoarthritis, unspecified site; Z68.35 Body mass index [BMI] 35.0-35.9, adult; Z87.01 Personal history of pneumonia (recurrent)
CPT/HCPCS: 71010; 80048; 82435; 82565; 82947; 83880; 84132; 84295; 84484; 84520; 85025; 85610; 85730; 92941; 93005; 93306; 93458; 96374; C1725; C1760; C1769; C1874; C1887; C1893; G0269; J0690; J1644; J2250; J3010; Q9967

== ENCOUNTER 2016-12-19 17:05 | Inpatient (IN) | payer OTHER ==
[~2016-12-19] VITALS: Ht 160 cm; Wt 103.0 kg
[~2016-12-19 17:05] MED LIST changes: -ASPI81CH CHEW
[2016-12-19 17:20] VITALS: BP 162/81; PULSE 73; RESP 16; TEMP 98.2; O2SAT 99
[2016-12-19] MEDS ORDERED: NITROGLYCERIN 2% OINT 1 GM PACKET TOP ONE (17:30)
[2016-12-19 17:34] LABS: AUTOMATED NEUTROPHIL # 3.2 TH/MM3 (1.8-7.7); BASOPHIL % 0.7 % (0.0-2.0); EOSINOPHIL # 0.1 TH/MM3 (0-0.4); EOSINOPHIL % 1.6 % (0.0-4.0); HEMO FLAGS DIFF FINAL; LYMPH % 42.6 % (9.0-44.0); LYMPHOCYTE # 2.8 TH/MM3 (1.0-4.8); MEAN CORPUSCULAR HEMOGLOBIN 29.2 PG (27.0-34.0); MEAN CORPUSCULAR HGB CONC 32.8 % (32.0-36.0); MONO % 8.6 % (0.0-8.0); NEUT % 46.5 % (16.0-70.0); PLATELET COUNT 213 TH/MM3 (150-450); RED BLOOD COUNT 4.95 MIL/MM3 (4.00-5.30); RED CELL DISTRIBUTION WIDTH 12.6 % (11.6-17.2); WHITE BLOOD COUNT 6.7 TH/MM3 (4.0-11.0)
[2016-12-19 17:41] LABS: CHLORIDE 105 MEQ/L (98-107); SODIUM (NA) 142 MEQ/L (136-145)
--- NOTE | 2016-12-19 17:41 | RADHPO ---
EXAM DATE/TIME: 12/19/2016 17:26 [facility] COMPARISON: CHEST SINGLE AP, October 13, 2016, 0:41. INDICATIONS : Chest pain. MEDICAL HISTORY : Hypertension. Hypercholesterolemia. SURGICAL HISTORY : Appendectomy. Cholecystectomy. ENCOUNTER: Initial ACUITY: 1 day PAIN SCORE: 7/10 LOCATION: Bilateral chest FINDINGS: Mild pulmonary vascular congestion is noted. The heart is stable. There is no focal alveolar consol idation. There is chronic elevation of the left hemidiaphragm. CONCLUSION: Mild central pulmonary vascular congestion. Roberth Alejandro MD on December 19, 2016 at 17:35 Board Certified Radiologist. This report was verified electronically.
[2016-12-19] MEDS: SODIUM CHLORIDE 0.9% FLUSH 10 ML FLUSH IVF PRN ×2 (17:43→18:23)
[2016-12-19 17:44] LABS: ANION GAP 8 MEQ/L (5-15); BICARBONATE 28.6 MEQ/L (21.0-32.0); BLOOD UREA NITROGEN 16 MG/DL (7-18); MAGNESIUM 2.2 MG/DL (1.5-2.5)
--- NOTE | 2016-12-19 17:45 | PD ---
HPI . Right arm tingling Chief Complaint: Paresthesias Time Seen by Provider: 17:18 Travel History International Travel<30 days: No Contact w/Intl Traveler<30days: No History of Present Illness HPI Patient presents complaining with right arm tingling. She states that she has had symptoms off and on all week. She states that it has been constant today. She states that it feels like her arm has gone to sleep. She did cardiac rehabilitation this morning with no exacerbation in her symptoms. She reports no relieving factors. She states that the right arm tingling is associated with some very mild chest discomfort. She rates her chest discomfort as 2/10. She denies shortness of breath, nausea, diaphoresis or headache. The patient had an anterior TN in October. She was treated with 2 stents in her LAD. Patient reports that she has been doing well since that time. She has been participating in cardiac rehabilitation and has been tolerating that well. She states that her symptoms when she had an TN were similar but much more severe when compared to the symptoms that she is having today. PFSH Past Medical History Cancer: No Cardiovascular Problems: Yes (HX: HTN) High Cholesterol: Yes Diabetes: No Diminished Hearing: No Endocrine: No Genitourinary: No Hepatitis: No Hiatal Hernia: No Hypertension: Yes Immune Disorder: No Musculoskeletal: Yes Neurologic: No Psychiatric: No Reproductive: No Respiratory: Yes (hx pneumonia) Immunizations Current: No Thyroid Disease: No Past Surgical History Abdominal Surgery: Yes (cholecystectomy appendectomy at the same time) AICD: No Appendectomy: Yes Cholecystectomy: Yes Joint Replacement: No Pacemaker: No Other Surgery: Yes Social History Alcohol Use: Yes (1 GLASS WINE MONTHLY) Tobacco Use: Yes (1 PPD) Substance Use: No Allergies-Medications (Allergen,Severity, Reaction): Coded Allergies: No Known Allergies (Verified , 12/19/16) Reported Meds & Prescriptions Reported Meds & Active Scripts Active Effient (Prasugrel) 10 Mg Tab 10 Mg PO DAILY Metoprolol Tartrate 25 Mg Tab 12.5 Mg PO BID Lisinopril 10 Mg Tab 10 Mg PO DAILY Atorvastatin (Atorvastatin Calcium) 80 Mg Tab 80 Mg PO HS Reported Aspirin 81 Mg Chew 81 Mg CHEW DAILY Review of Systems Except as stated in HPI: all other systems reviewed are Neg General / Constitutional: Positive: Other (no diaphoresis) Cardiovascular: Positive: Chest Pain or Discomfort Respiratory: No: Shortness of Breath Gastrointestinal: No: Nausea, Vomiting Neurologic: Positive: Paresthesia, No: Weakness, Headache Physical Exam Narrative GENERAL: Awake and alert and in no acute distress. SKIN: Warm and dry. HEAD: Atraumatic. Normocephalic. EYES: Pupils equal and round. ENT: No nasal bleeding or discharge. Mucous membranes pink and moist. NECK: Trachea midline. CARDIOVASCULAR: Regular rate and rhythm. RESPIRATORY: No accessory muscle use. GASTROINTESTINAL: Abdomen soft, non-tender, nondistended. MUSCULOSKELETAL: No obvious deformities. No edema. NEUROLOGICAL: Awake and alert. No obvious cranial nerve deficits. Motor grossly within normal limits. Normal speech. PSYCHIATRIC: Appropriate mood and affect; insight and judgment normal. Data Data Last Documented VS Vital Signs Date Time Temp Pulse Resp B/P Pulse Ox O2 Delivery O2 Flow Rate FiO2 12/19/16 17:55 99 Room Air 12/19/16 17:20 98.2 73 16 162/81 Orders Basic Metabolic Panel (Bmp) (12/19/16 17:19) Ckmb (Isoenzyme) Profile (12/19/16 17:19) Complete Blood Count With Diff (12/19/16 17:19) Magnesium (Mg) (12/19/16 17:19) Prothrombin Time / Inr (Pt) (12/19/16 17:19) Act Partial Throm Time (Ptt) (12/19/16 17:19) Troponin I (12/19/16 17:19) Chest, Single Ap (12/19/16 17:19) Ecg Monitoring (12/19/16 17:19) Iv Access Insert/Monitor (12/19/16 17:19) Oximetry (12/19/16 17:19) Oxygen Administration (12/19/16 17:19) Nitroglycerin 2% Oint (Nitroglycerin 2% (12/19/16 17:30) Sodium Chloride 0.9% Flush (Ns Flush) (12/19/16 17:30) Electrocardiogram (12/19/16 17:45) CKMB (12/19/16 17:24) CKMB% (12/19/16 17:24) Lorazepam Inj (Ativan Inj) (12/19/16 18:15) Consult Cardiology (12/19/16 ) Heparin Infusion GUILLERMO.Q1H (12/19/16 18:54) Heparin Inj (Heparin Inj) (12/19/16 19:00) Heparin Inj (Heparin Inj) (12/20/16 01:00) Heparin Inj (Heparin Inj) (12/20/16 01:00) Heparin-D5w Inj (Heparin-D5w Inj) (12/19/16 19:00) Act Partial Throm Time (Ptt) (12/19/16 18:54) Prothrombin Time / Inr (Pt) (12/19/16 18:54) Cbc No Diff, Includes Plts (12/19/16 18:54) Cbc No Diff, Includes Plts (12/22/16 06:00) Act Partial Throm Time (Ptt) (12/20/16 01:54) Occult Blood (Hemoccult) Stool (12/19/16 18:54) Admit Order (Ed Use Only) (12/19/16 18:58) Labs Laboratory Tests Test 12/19/16 17:24 White Blood Count 6.7 TH/MM3 Red Blood Count 4.95 MIL/MM3 Hemoglobin 14.5 GM/DL Hematocrit 44.0 % Mean Corpuscular Volume 89.0 FL Mean Corpuscular Hemoglobin 29.2 PG Mean Corpuscular Hemoglobin 32.8 % Concent Red Cell Distribution Width 12.6 % Platelet Count 213 TH/MM3 Mean Platelet Volume 8.0 FL Neutrophils (%) (Auto) 46.5 % Lymphocytes (%) (Auto) 42.6 % Monocytes (%) (Auto) 8.6 % Eosinophils (%) (Auto) 1.6 % Basophils (%) (Auto) 0.7 % Neutrophils # (Auto) 3.2 TH/MM3 Lymphocytes # (Auto) 2.8 TH/MM3 Monocytes # (Auto) 0.6 TH/MM3 Eosinophils # (Auto) 0.1 TH/MM3 Basophils # (Auto) 0.0 TH/MM3 CBC Comment DIFF FINAL Differential Comment Prothrombin Time 10.5 SEC Prothromb Time International 1.0 RATIO Ratio Activated Partial 24.6 SEC Thromboplast Time Sodium Level 142 MEQ/L Potassium Level 4.0 MEQ/L Chloride Level 105 MEQ/L Carbon Dioxide Level 28.6 MEQ/L Anion Gap 8 MEQ/L Blood Urea Nitrogen 16 MG/DL Creatinine 0.67 MG/DL Estimat Glomerular Filtration 91 ML/MIN Rate Random Glucose 87 MG/DL Calcium Level 9.5 MG/DL Magnesium Level 2.2 MG/DL Total Creatine Kinase 102 U/L Creatine Kinase MB 1.9 NG/ML Troponin I LESS THAN 0.02 NG/ML MDM Medical Decision Making Medical Screen Exam Complete: Yes Emergency Medical Condition: Yes Medical Record Reviewed: Yes (patient had an anterior TN on October 13. Catheterization showed a proximal LAD lesion which was stented. An echo showed an ejection fraction of 30/5/40 percent.) Interpretation(s) Her EKG shows poor R-wave progression consistent with previous anterior TN. Her most recent EKG for comparison was when she was having the anterior TN. That EKG had ST segment elevation anteriorly with reciprocal changes inferiorly. She does not have any post TN EKGs for comparison. Repeat EKG is unchanged from the first EKG. Differential Diagnosis Differential diagnosis of chest pain includes but is not limited to musculoskeletal pain, pulmonary embolism, acute coronary syndrome, pneumonia, pleurisy Narrative Course This patient presents with right arm paresthesias. She has some associated mild chest pain. She had similar symptoms with her TN in October. She does state that her symptoms today are much milder than the symptoms that she had she had the TN. Furthermore, the patient has been having symptoms all week. Her symptoms were not exacerbated by cardiac rehabilitation today. CBC & BMP Diagram 12/19/16 17:24 CKMB 1.9, trop <0.02 CXR: Mild pulmonary vascular congestion is noted. The heart is stable. There is no focal alveolar consolidation. There is chronic elevation of the left hemidiaphragm. The chest x-ray was independently viewed by me. The patient reports mild improvement of her symptoms with Nitropaste. The patient is somewhat reluctant to be admitted but was eventually agreeable. Critical Care Narrative Aggregate critical care time was 60 minutes. Time to perform other separately billable procedures was not included in the critical care time. My time did not include minutes spent treating any other patients simultaneously or on activities that did not directly contribute to the patient's treatment. The services I provided to this patient were to treat and/or prevent clinically significant deterioration due to possible ACS I provided critical care services requiring my management, as noted below: Chart data review, documentation time, medication orders and management, vital sign assessments/reviewing monitor data, ordering and reviewing lab tests, ordering and interpreting/reviewing x-rays and diagnostic studies, care of the patient and discussion of the patient with the admitting physician and consulting physician. Physician Communication Physician Communication Dr. Edwards, Dr. Alcala. Diagnosis Primary Impression: Arm paresthesia, right Additional Impression: Chest pain Qualified Code: R07.9 - Chest pain, unspecified type Admitting Information Admitting Physician Requests: Observation Condition: Stable Iram Johansen MD Dec 19, 2016 17:45
[2016-12-19 17:47] LABS: APTT (PATIENT) 24.6 SEC (24.3-30.1); GLOMERULAR FILTRATION RATE 91 ML/MIN (>89); PROTHROMBIN TIME - PATIENT 10.5 SEC (9.8-11.6)
[2016-12-19 17:50] LABS: CREATINE KINASE 102 U/L (26-192)
[2016-12-19 17:55] VITALS: O2SAT 99
[2016-12-19] MEDS ORDERED: ASPI81CH CHEW (18:01)
[2016-12-19 18:03] LABS: CKMB 1.9 NG/ML (0.5-3.6)
[2016-12-19] MEDS ORDERED: LORazepam 2 MG/ML VIAL IV PUSH PRN (18:15)
[2016-12-19] MEDS ORDERED: HEPARIN SODIUM - IV 10,000 UNITS/10 ML VIAL IV ONE (19:00)
[2016-12-19] MEDS ORDERED: ACETAMINOPHEN 325 MG TAB PO PRN (19:15)
[2016-12-19] MEDS ORDERED: SODIUM CHLORIDE 0.9% FLUSH 10 ML FLUSH IV FLUSH PRN (19:15)
[2016-12-19] MEDS ORDERED: NALOXONE HCL 0.4 MG/ML AMP IV PRN (19:15)
[2016-12-19] MEDS ORDERED: ONDANSETRON HCL 4 MG/2 ML VIAL IVP PRN (19:15)
[2016-12-19 19:32] LABS: HEMATOCRIT 40.7 % (35.0-46.0); MEAN CELL VOLUME 88.7 FL (80.0-100.0); MEAN CORPUSCULAR HEMOGLOBIN 29.6 PG (27.0-34.0); MEAN CORPUSCULAR HGB CONC 33.4 % (32.0-36.0); PLATELET COUNT 199 TH/MM3 (150-450); RED BLOOD COUNT 4.59 MIL/MM3 (4.00-5.30); RED CELL DISTRIBUTION WIDTH 12.4 % (11.6-17.2); REVIEW FLAG FINAL; WHITE BLOOD COUNT 6.5 TH/MM3 (4.0-11.0)
[2016-12-19 19:44] LABS: PROTHROMBIN TIME - PATIENT 10.5 SEC (9.8-11.6)
[2016-12-19] MEDS: HEPARIN-D5W INJ 250 ML IV SCH (19:58)
[2016-12-19] MEDS: D5-1/2 NS + KCL 20 MEQ INJ 1,000 ML IV SCH (19:59)
[2016-12-19 20:08] VITALS: BP 112/74; PULSE 82; RESP 18; O2SAT 98
[2016-12-19 20:41] VITALS: O2SAT 98
[2016-12-19] MEDS: SODIUM CHLORIDE 0.9% FLUSH 10 ML FLUSH IV FLUSH SCH (21:00)
[2016-12-19 22:34] VITALS: BP 118/72; PULSE 78; RESP 18; O2SAT 98
[2016-12-19 23:20] VITALS: BP 116/76; PULSE 85; RESP 20; TEMP 97.9; O2SAT 98
[2016-12-20] VITALS (22 sets, daily range): BP systolic 101–117; BP diastolic 60–76; PULSE 41–86; RESP 16–18; TEMP 97.6–98.5; O2SAT 98–99
[2016-12-20] MEDS ORDERED: HEPARIN SODIUM - IV 10,000 UNITS/10 ML VIAL IV PRN ×2 (01:00)
[2016-12-20 02:19] LABS: AUTOMATED NEUTROPHIL # 2.9 TH/MM3 (1.8-7.7); BASOPHIL # 0.1 TH/MM3 (0-0.2); EOSINOPHIL # 0.1 TH/MM3 (0-0.4); EOSINOPHIL % 1.8 % (0.0-4.0); HEMATOCRIT 35.4 % (35.0-46.0); HEMO FLAGS DIFF FINAL; LYMPH % 45.4 % (9.0-44.0); LYMPHOCYTE # 3.1 TH/MM3 (1.0-4.8); MEAN CELL VOLUME 88.8 FL (80.0-100.0); MEAN CORPUSCULAR HGB CONC 33.8 % (32.0-36.0); MONO % 8.7 % (0.0-8.0); NEUT % 43.1 % (16.0-70.0); PLATELET COUNT 184 TH/MM3 (150-450); RED BLOOD COUNT 3.99 MIL/MM3 (4.00-5.30); RED CELL DISTRIBUTION WIDTH 13.2 % (11.6-17.2); WHITE BLOOD COUNT 6.7 TH/MM3 (4.0-11.0)
[2016-12-20 02:36] LABS: ANION GAP 5 MEQ/L (5-15); BICARBONATE 28.8 MEQ/L (21.0-32.0); BLOOD UREA NITROGEN 13 MG/DL (7-18); CHLORIDE 109 MEQ/L (98-107); GLOMERULAR FILTRATION RATE 133 ML/MIN (>89); POTASSIUM 3.7 MEQ/L (3.5-5.1); SODIUM (NA) 143 MEQ/L (136-145)
[2016-12-20] MEDS: D5-1/2 NS + KCL 20 MEQ INJ 1,000 ML IV SCH ×2 (05:27→15:02)
[2016-12-20] MEDS: SODIUM CHLORIDE 0.9% FLUSH 10 ML FLUSH IV FLUSH SCH ×2 (07:20→20:58)
--- NOTE | 2016-12-20 09:30 | HHI.HP ---
HPI Service [facility] Primary Care Physician Rahul Butler MD Admission Diagnosis chest pain, right arm paresthesia Diagnoses: Chief Complaint: chest pain (Mandi Campoverde) Travel History International Travel<30 Days: No Contact w/Intl Traveler <30 Da: No Traveled to Known Affected Are: No (Mandi Campoverde) History of Present Illness This is a pleasant 56-year-old white female with recent history of STEMI in October 2016, underwent cardiac catheter and had stents [address] Patient presented to emergency room complaining of right arm intermittent tingling. Patient states that she's had intermittent right arm tingling for several days, however yesterday the symptoms persisted and never went away. She had no other associated symptoms. Indicates that she became concerned because with her WI in October 2016 she had similar symptoms but at that time the arm felt more heavy. When she arrived in the emergency room, she felt some mild chest pressure that went away. She had no other symptoms such as shortness of breath , no nausea, no vomiting, no diaphoresis. She is undergoing cardiac rehabilitation and she had gone in yesterday morning without any difficulty. She was able to tolerate exercises without any problem. Rated the chest discomfort as 2/10. 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 Indicates that she also had some right right leg tingling as well as to the left arm as well. Indicates she has been compliant with medications. The emergency room, patient was evaluated. Laboratory workup was unremarkable. Troponin was negative. EKG did not reveal any acute ST segment elevation. He showed poor R-wave progression consistent with previous anterior WI. A repeat EKG was unchanged. Patient was started on a heparin drip. Chest x-ray revealed mild pulmonary vascular congestion. She had an echo in October that showed EF of 40-45%. At this time, states that her symptoms are somewhat relieved, very light tingling. She has intact sensation. Patient endorses a lot of fatigue and has been having a difficult time dealing with her recent changes in health. She is tearful and is afraid that she may have overreacted. Patient is admitted for further evaluation and treatment. (Mandi Campoverde) Review of Systems Constitutional: COMPLAINS OF: Fatigue, DENIES: Diaphoretic episodes, Fever, Weight gain, Weight loss, Chills, Dizziness, Change in appetite, Night Sweats Endocrine: DENIES: Abnorml menstrual pattern, Heat/cold intolerance, Polydipsia , Polyuria, Polyphagia Eyes: DENIES: Blurred vision, Diplopia, Eye inflammation, Eye pain, Vision loss , Photosensitivity, Double Vision Ears, nose, mouth, throat: DENIES: Tinnitus, Hearing loss, Vertigo, Nasal discharge, Oral lesions, Throat pain, Hoarseness, Ear Pain, Running Nose, Epistaxis, Sinus Pain, Toothache, Odynophagia Respiratory: DENIES: Apneas, Cough, Snoring, Wheezing, Hemoptysis, Sputum production, Shortness of breath Cardiovascular: COMPLAINS OF: Chest pain, DENIES: Palpitations, Syncope, Dyspnea on Exertion, PND, Lower Extremity Edema, Orthopnea, Claudication Gastrointestinal: DENIES: Abdominal pain, Black stools, Bloody stools, Constipation, Diarrhea, Nausea, Vomiting, Difficulty Swallowing, Anorexia Genitourinary: DENIES: Abnormal vaginal bleeding, Dysmenorrhea, Dyspareunia, Sexual dysfunction, Urinary frequency, Urinary incontinence, Urgency, Hematuria , Dysuria, Nocturia, Vaginal discharge Musculoskeletal: DENIES: Joint pain, Muscle aches, Stiffness, Joint Swelling, Back pain, Neck pain Integumentary: DENIES: Abnormal pigmentation, Pruritus, Rash, Nail changes, Breast masses, Breast skin changes, Nipple discharge Hematologic/lymphatic: DENIES: Bruising, Lymphadenopathy Immunologic/allergic: DENIES: Eczema, Urticaria Neurologic: DENIES: Abnormal gait, Headache, Localized weakness, Paresthesias, Seizures, Speech Problems, Tremor, Poor Balance Psychiatric: DENIES: Anxiety, Confusion, Mood changes, Depression, Hallucinations, Agitation, Suicidal Ideation, Homicidal Ideation, Delusions Other paresthesia both arms right thigh (Mandi Campoverde) Past Family Social History Past Medical History 1. Hyperlipidemia. 2. Hypertension. 3. Prior history of syncope. 4. Arthritis. 5. History of pneumonia. 6. Acute STEMI 10/13/2016, had stent 2 to LAD 7. Left ventricular dysfunction, echo October 2016 with EF of 40-55% Past Surgical History 1. Cholecystectomy. 2. Appendectomy. Reported Medications Reported Meds & Active Scripts Active Effient (Prasugrel) 10 Mg Tab 10 Mg PO DAILY Metoprolol Tartrate 25 Mg Tab 12.5 Mg PO BID Lisinopril 10 Mg Tab 10 Mg PO DAILY Atorvastatin (Atorvastatin Calcium) 80 Mg Tab 80 Mg PO HS Reported Aspirin 81 Mg Chew 81 Mg CHEW DAILY (Mandi Campoverde) Allergies: Coded Allergies: No Known Allergies (Verified , 12/19/16) Active Ordered Medications Inpatient Medications Acetaminophen (Tylenol) 650 mg Q4H PRN PO TEMP > 100.4; Start 12/19/16 at 19:15 Heparin Sodium (Porcine) (Heparin Inj) 5,000 units UNSCH PRN IV APTT LESS THAN 25; Start 12/20/16 at 01:00 Heparin Sodium (Porcine) 2500 units 2,500 units UNSCH PRN IV APTT 25 TO 39; Start 12/20/16 at 01:00 Heparin Sodium/ Dextrose 250 ml @ 0 mls/hr TITRATE IV Last administered on 12/19 19:58; Start 12/19/16 at 19:00 Lorazepam (Ativan Inj) 1 mg ONCE PRN IV PUSH active seizure Last administered on 12/19/16 18:23; Start 12/19/16 at 18:15 Naloxone HCl (Narcan Inj) 0.4 mg UNSCH PRN IV SEE LABEL COMMENTS; Start at 19:15 Nitroglycerin (Nitroglycerin 2% Oint) 1 inch ONCE ONCE TOP Last administered on 12/19/16 17:43; Start 12/19/16 at 17:30; Stop 12/19/16 at 17:31; Status DC Ondansetron HCl (Zofran Inj) 4 mg Q6H PRN IVP NAUSEA OR VOMITING; Start at 19:15 Potassium Chloride/Dextrose/ Sod Cl (D5-1/2 NS + KCl 20 Meq Inj) 1,000 ml @ 100 mls/hr Q10H IV Last administered on 12/20/16 05:27; Start 12/19/16 at 19: 02 Sodium Chloride (NS Flush) 2 ml BID IV FLUSH ; Start 12/19/16 at 21:00 Family History Heart disease, diabetes, hypertension, CVA. 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 She lives alone, she has grown children. She was a one pack a day smoker for 18 years but quit October this year. She still smokes 1 or 2 cigarettes occasionally. Occasional alcohol use, no substance abuse. She is attending cardiac rehabilitation (Mandi Campoverde) Physical Exam Vital Signs Vital Signs Date Time Temp Pulse Resp B/P Pulse Ox O2 Delivery O2 Flow Rate FiO2 12/20/16 06:00 51 12/20/16 05:00 57 12/20/16 04:06 50 12/20/16 04:05 57 12/20/16 03:06 54 12/20/16 02:00 62 12/20/16 01:00 60 12/20/16 00:00 56 12/19/16 23:20 97.9 85 20 116/76 98 12/19/16 23:20 85 12/19/16 22:43 78 18 98 12/19/16 22:34 78 18 118/72 98 Room Air 12/19/16 20:41 98 21 12/19/16 20:08 82 18 112/74 98 Room Air 12/19/16 17:55 99 Room Air 12/19/16 17:55 99 Room Air 12/19/16 17:20 98.2 73 16 162/81 99 Physical Exam GENERAL: This is a well-nourished, well-developed patient, in no apparent distress. SKIN: No rashes, ecchymoses or lesions. Cool and dry. HEAD: Atraumatic. Normocephalic. No temporal or scalp tenderness. EYES: Pupils equal round and reactive. Extraocular motions intact. No scleral icterus. No injection or drainage. ENT: Nose without bleeding, purulent drainage or septal hematoma. Throat without erythema, tonsillar hypertrophy or exudate. Uvula midline. Airway patent. NECK: Trachea midline. No JVD or lymphadenopathy. Supple, nontender, no meningeal signs. CARDIOVASCULAR: Regular rate and rhythm without murmurs, gallops, or rubs. RESPIRATORY: Clear to auscultation. Breath sounds equal bilaterally. No wheezes , rales, or rhonchi. GASTROINTESTINAL: Abdomen soft, non-tender, nondistended. No hepato-splenomegaly , or palpable masses. No guarding. MUSCULOSKELETAL: Extremities without clubbing, cyanosis, or edema. No joint tenderness, effusion, or edema noted. No calf tenderness. Negative Homans sign bilaterally. NEUROLOGICAL: Awake and alert. Cranial nerves II through XII intact. Motor and sensory grossly within normal limits. Five out of 5 muscle strength in all muscle groups. Normal speech. Laboratory Laboratory Tests Test 12/19/16 12/19/16 12/20/16 17:24 19:25 02:03 White Blood Count 6.7 6.5 6.7 Red Blood Count 4.95 4.59 3.99 Hemoglobin 14.5 13.6 12.0 Hematocrit 44.0 40.7 35.4 Mean Corpuscular Volume 89.0 88.7 88.8 Mean Corpuscular Hemoglobin 29.2 29.6 30.0 Mean Corpuscular Hemoglobin 32.8 33.4 33.8 Concent Red Cell Distribution Width 12.6 12.4 13.2 Platelet Count 213 199 184 Mean Platelet Volume 8.0 8.0 7.9 Neutrophils (%) (Auto) 46.5 43.1 Lymphocytes (%) (Auto) 42.6 45.4 Monocytes (%) (Auto) 8.6 8.7 Eosinophils (%) (Auto) 1.6 1.8 Basophils (%) (Auto) 0.7 1.0 Neutrophils # (Auto) 3.2 2.9 Lymphocytes # (Auto) 2.8 3.1 Monocytes # (Auto) 0.6 0.6 Eosinophils # (Auto) 0.1 0.1 Basophils # (Auto) 0.0 0.1 CBC Comment DIFF FINAL DIFF FINAL Differential Comment Prothrombin Time 10.5 10.5 Prothromb Time International 1.0 1.0 Ratio Activated Partial 24.6 25.0 47.0 Thromboplast Time Sodium Level 142 143 Potassium Level 4.0 3.7 Chloride Level 105 109 Carbon Dioxide Level 28.6 28.8 Anion Gap 8 5 Blood Urea Nitrogen 16 13 Creatinine 0.67 0.48 Estimat Glomerular Filtration 91 133 Rate Random Glucose 87 113 Calcium Level 9.5 8.4 Magnesium Level 2.2 Total Creatine Kinase 102 Creatine Kinase MB 1.9 Troponin I LESS THAN 0.02 LESS THAN 0.02 LESS THAN 0.02 (Mandi CampoverdeP) Result Diagram: 12/20/1620212/20/16202 Imaging Last Impressions Chest X-Ray 12/19/16 3362 Signed Impressions: Service Date/Time: Monday, December 19, 2016 17:26 - CONCLUSION: Mild central pulmonary vascular congestion. Roberth Alejandro MD (Mandi Campoverde) Assessment and Plan Problem List: (1) Chest pain (2) Arm paresthesia, right (3) Tobacco abuse (4) Hyperlipidemia (5) History of ST elevation myocardial infarction (STEMI) (6) Fatigue Assessment and Plan Admit to Dr. Ashton 56-year-old white female with history of recent STEMI and stent to LAD 2. Presented to the emergency room with right arm tingling in mild chest pressure. Indicates symptoms are similar to previous myocardial infarction. Indicates right arm numbness has decreased. No more chest pain. First set of troponins negative. -Consult cardiology for evaluation -Keep nothing by mouth for now Continue with heparin drip Continue with serial cardiac enzymes Continue with metoprolol 12.5 mg by mouth twice a day Continue with Effient 10 mg by mouth daily -Continue with atorvastatin 80 mg by mouth daily at bedtime Paresthesia, endorsing right arm tingling as well as right thigh and occasional left arm tingling. Denies any recent falls, no strenuous activity. -If symptoms persist after cardiac etiology ruled out, she may benefit from cervical spine MRI Hyperlipidemia Continue statins Hypertension, stable Continue home medications Tobacco abuse, indicates that she was smoking 1 pack a day and has cut down to maybe 1 or 2 occasionally. Has been counseled about tobacco abuse, she understands that it is detrimental to her health. Fatigue, patient reports increased fatigue especially after attending cardiac rehabilitation sessions, usually more in the afternoon. Also endorses some difficulty coping with recent change in health, possibly depressed -Emotional support provided Home medications reviewed, initiated as indicated For DVT prophylaxis, patient is already on heparin drip Plan of care has been discussed with the patient, attending and registered nurse. Further management of the patient will be dependent on the hospital course This patient was seen by myself and Dr. Ashton, this H&P is written on his behalf Plan of care has been discussed with the patient, attending and registered nurse. Further management of the patient will be dependent on the hospital course This patient was seen by myself and Dr. Ashton, this H&P is written his behalf ( Mandi Campoverde) Assessment and Plan PT IS SEEN & eXAMINED D/W PT MARCE kruse w above card input appreciated s/p stress test , +ve reversible defect,, most likely will need cardiac cath will notify card d/w RN will f/u (Janice Ashton MD) Physician Certification 2 Midnight Certification Type: Admission for Inpatient Services Order for Inpatient Services The services are ordered in accordance with Medicare regulations or non- Medicare payer requirements, as applicable. In the case of services not specified as inpatient-only, they are appropriately provided as inpatient services in accordance with the 2-midnight benchmark. Estimated LOS (days): 2 2 days is the estimated time the patient will need to remain in the hospital, assuming treatment plan goals are met and no additional complications. Post-Hospital Plan: Home (Mandi Campoverde) Problem Qualifiers (1) Chest pain: Qualified Code: R07.9 - Chest pain, unspecified type (2) Hyperlipidemia: Qualified Code: E78.5 - Hyperlipidemia, unspecified hyperlipidemia type (3) Fatigue: Qualified Code: R53.83 - Fatigue, unspecified type Mandi Campoverde Dec 20, 2016 09:30 Janice Ashton MD Dec 20, 2016 17:08
[2016-12-20] MEDS ORDERED: PILL SPLITTER OTHER PRN (09:45)
[2016-12-20] MEDS: LISINOPRIL 10 MG TAB PO SCH (10:23)
[2016-12-20] MEDS: METOPROLOL TARTRATE 25 MG TAB PO SCH ×2 (10:23→20:57)
[2016-12-20 11:41] LABS: APTT (PATIENT) 44.1 SEC (24.3-30.1)
--- NOTE | 2016-12-20 13:01 | MB ---
cc: BIBI GIRALDO MD DATE OF CONSULTATION: 12/20/2016 REASON FOR CONSULTATION: Anginal equivalent. HISTORY OF PRESENT ILLNESS Miss Christine Jesus is a 56-year-old female he does have a history of a STEMI in October of 2016 with successful stenting of her left anterior descending, utilizing a drug-eluting stent. Her ejection fraction at that time was 40-45%. The patient presented to the emergency room yesterday with right coronary tingling. This has been going on intermittently for the last week. 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 She is not sure if it was positionally related, It was fairly constant the day of her arrival and was the prodromal symptoms that she had prior to her STEMI. She does also note that with the STEMI she had progressive chest pain, that radiated into the back and diaphoresis. She has not had any of those symptoms since then. She is additionally pain-free today. Of note she denied any chest pain to me yesterday as well. PAST MEDICAL HISTORY: Past medical history significant for hypertension, hyperlipidemia Coronary artery disease with left anterior descending stents. Pneumonia. PAST SURGICAL HISTORY: 1. Appendectomy. 2. Cholecystectomy. SOCIAL HISTORY The patient does continue to smoke. She occasionally has alcohol. ALLERGIES NO KNOWN DRUG ALLERGIES. OUTPATIENT MEDICATIONS 1. Aspirin. 2. Synthroid. 3. Metoprolol. 4. Lisinopril. 5. Atorvastatin. REVIEW OF SYSTEMS Except as mentioned in HPI all 12 systems are negative. PHYSICAL EXAMINATION: VITAL SIGNS: On physical examination vital signs are 97.6, 57, 18, 107/60. IN GENERAL: She is an overweight female who is in no apparent distress. NECK: Her neck is free from JVD. LUNGS: The lungs are bilaterally clear to auscultation. CARDIOVASCULAR SYSTEM: She has a normal S1, S2, I did not appreciate any murmurs, rubs or gallops. ABDOMEN: The abdomen is soft. EXTREMITIES: The extremities are free from edema. RADIOLOGIC: EKG shows normal sinus rhythm. There are Q-waves in V1, V2, with T-wave inversions. I do not see any significant ST elevation. LABORATORY VALUES: Significant for serial troponins of less than 0.02 / less than 0.02. IMPRESSION 1. Possible anginal equivalents - the patient denies any chest pain to me, she has had some right arm tingling. Her symptoms really due sound more radicular and neuropathic in origin. However, in light of her recent events, I do agree that consideration of ischemic etiology is not unreasonable. Her ECG and enzymes did not show any acute event. At this point I discussed catheterization, versus nuclear stress testing versus medical management with the patient and we agreed upon current further evaluation with a nuclear stress test. If this is nonischemic it is reasonable for her to be discharged home. 2. Smoking - the patient was counseled to quit. 3. Dyslipidemia - I agree with continuing her on a statin. Bibi Giraldo M.D. Am[place] /11:22 AM /12:47 PM
--- NOTE | 2016-12-20 13:28 | EKG ---
Date Performed: 12/19/2016 Time Performed: 17:54:26 PTAGE: 56 years EKG: Sinus rhythm ANTEROSEPTAL MYOCARDIAL INFARCTION ACUTE VT PREVIOUS TRACING : 10/13/2016 00.47 Compared to prior tracing no significant change DOCTOR: Marcelo You Interpretating Date/Time 12/20/2016 13:26:40
--- NOTE | 2016-12-20 13:29 | EKG ---
Date Performed: 12/19/2016 Time Performed: 17:12:59 PTAGE: 56 years EKG: Sinus rhythm WITH SINUS ARRHYTHMIA ANTEROSEPTAL MYOCARDIAL INFARCTION ACUTE MS INTERPRETATION BASED ON A DE FAULT AGE OF 40 YEARS NO PREVIOUS TRACING DOCTOR: Marcelo You Interpretating Date/Time 12/20/2016 13:27:36
[2016-12-20] MEDS ORDERED: REGADENOSON INJ 0.4 MG/5 ML SYR ONE (13:34)
--- NOTE | 2016-12-20 16:19 | RADRPT ---
EXAM DATE/TIME: 12/20/2016 13:12 [facility] COMPARISON: MYOCARDIAL PERF PHARM SPECT, GATED W/EF, March 22, 2016, 9:09. INDICATIONS : Chest pain with recent heart attack 10/2016. Coronary atherosclerosis. DOSE: 31.2 mCi Tc99m Myoview at stress. 10.2 mCi Tc99m Myoview at rest. 0.4 mg Lexiscan STRESS SYMPTOMS: Dyspnea and chest pain. EJECTION FRACTION: 48% MEDICAL HISTORY : Hypertension. Myocardial infarction. Cardiovascular disease Smoker. SURGICAL HISTORY : Appendectomy. Cholecystectomy. ENCOUNTER: Initial ACUITY: 1 day PAIN SCALE: 0/10 LOCATION: Bilateral chest TECHNIQUE: The patient underwent pharmacologic stress with infusion of prescribed dose. Continuous ECG tracing was monitored during stress. Gated SPECT imaging was performed after stress and conventional SPECT i maging was performed at rest. The examination was performed on a SPECT/CT scanner, both attenuation and non-corrected datasets were reviewed. FINDINGS: DISTRIBUTION: The maximum perfused segment at stress is in the inferior wall. PERFUSION STUDY: The pattern of perfusion at stress is abnormal. There is a large, moderate in severity, reversible pe rfusion defect involving the septum and anterior wall. Myocardial ischemia is not excluded. GATED STUDY: The gated study demonstrates mild hypokinesis of the septum. CONCLUSION: 1. Abnormal examination demonstrating a reversible perfusion defect involving portions of the septum and anterior wall. Myocardial ischemia is not excluded. RISK CATEGORY: High (>3% Annual Mortality Rate) Dandy Garcia MD on December 20, 2016 at 16:14 Board Certified Radiologist. This report was verified electronically.
[2016-12-20] MEDS: HEPARIN-D5W INJ 250 ML IV SCH (18:10)
[2016-12-20] MEDS: ATORVASTATIN 80 MG TAB PO SCH (20:56)
[2016-12-21] VITALS (23 sets, daily range): BP systolic 93–118; BP diastolic 44–62; PULSE 42–79; RESP 16–18; TEMP 97.2–98.6; O2SAT 69–100
[2016-12-21] MEDS: D5-1/2 NS + KCL 20 MEQ INJ 1,000 ML IV SCH (01:02)
[2016-12-21 05:58] LABS: HDL CHOLESTEROL 42.3 MG/DL (40.0-60.0)
[2016-12-21] MEDS: SODIUM CHLORIDE 0.9% FLUSH 10 ML FLUSH IV FLUSH SCH ×2 (07:22→21:00)
[2016-12-21] MEDS: LISINOPRIL 10 MG TAB PO SCH (08:18)
[2016-12-21] MEDS: ASPIRIN 81 MG CHEW TAB CHEW SCH (08:18)
[2016-12-21] MEDS: METOPROLOL TARTRATE 25 MG TAB PO SCH ×2 (08:18→21:08)
--- NOTE | 2016-12-21 08:30 | HHI.PR ---
Subjective Remarks had STT, was positive, going for cath tomorrow on heparin gtt no cp no paresthesias no sob BP stable Tele reviewed, SB Objective Objective Results - Vital Signs Date Time Temp Pulse Resp B/P Pulse Ox O2 Delivery O2 Flow Rate FiO2 12/21/16 07:10 93 21 12/21/16 06:02 46 12/21/16 05:26 43 12/21/16 04:06 45 12/21/16 03:20 98.3 51 16 93/50 100 12/21/16 03:20 45 12/21/16 02:10 58 12/21/16 01:07 49 12/21/16 00:27 42 12/20/16 23:30 98.5 54 16 101/65 99 12/20/16 23:00 41 12/20/16 22:00 42 12/20/16 21:05 60 12/20/16 20:50 66 12/20/16 20:50 98.0 78 16 117/65 98 12/20/16 19:06 21 12/20/16 18:13 56 12/20/16 17:10 64 12/20/16 16:11 51 12/20/16 15:54 98.0 60 18 116/64 99 12/20/16 15:54 86 12/20/16 12:32 45 12/20/16 11:35 56 12/20/16 11:35 97.7 54 18 108/76 99 12/20/16 10:47 55 12/20/16 09:32 45 I/O 12/20/16 12/20/16 12/20/16 12/21/16 12/21/16 12/21/16 07:00 15:00 23:00 07:00 15:00 23:00 Intake Total 7070 ml 1340 ml 784 ml Output Total 200 ml Balance 7070 ml 1340 ml 584 ml Intake Oral 0 ml 240 ml 480 ml IV Total 7070 ml 1100 ml 304 ml Output Urine Total 200 ml # Voids 1 3 # Bowel Movements 1 Result Diagram: 12/20/1620212/20/16202 Imaging Last Impressions Chest X-Ray 12/19/16 2493 Signed Impressions: Service Date/Time: Monday, December 19, 2016 17:26 - CONCLUSION: Mild central pulmonary vascular congestion. 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 SKIN: No rashes, ecchymoses or lesions. Cool and dry. HEAD: Atraumatic. Normocephalic. No temporal or scalp tenderness. EYES: Pupils equal round and reactive. Extraocular motions intact. No scleral icterus. No injection or drainage. ENT: Nose without bleeding, purulent drainage or septal hematoma. Throat without erythema, tonsillar hypertrophy or exudate. Uvula midline. Airway patent. NECK: Trachea midline. No JVD or lymphadenopathy. Supple, nontender, no meningeal signs. CARDIOVASCULAR: Regular rate and rhythm without murmurs, gallops, or rubs. RESPIRATORY: Clear to auscultation. Breath sounds equal bilaterally. No wheezes , rales, or rhonchi. GASTROINTESTINAL: Abdomen soft, non-tender, nondistended. No hepato-splenomegaly , or palpable masses. No guarding. MUSCULOSKELETAL: Extremities without clubbing, cyanosis, or edema. No joint tenderness, effusion, or edema noted. No calf tenderness. Negative Homans sign bilaterally. NEUROLOGICAL: Awake and alert. Cranial nerves II through XII intact. Motor and sensory grossly within normal limits. Five out of 5 muscle strength in all muscle groups. Normal speech. Urinary Catheter: No Vascular Central Line Catheter: No A/P Diagnosis: (1) Chest pain (2) Arm paresthesia, right (3) Tobacco abuse (4) Hyperlipidemia (5) History of ST elevation myocardial infarction (STEMI) (6) Fatigue Assessment and Plan 56-year-old white female with history of recent STEMI and stent to LAD 2. Presented to the emergency room with right arm tingling in mild chest pressure. Indicates symptoms are similar to previous myocardial infarction. Indicates right arm numbness has decreased. No more chest pain. Trop x 3 negative. -appreciate card input, STT done, reversible perf defect involving portions of septum and anterior wall. Continue with metoprolol 12.5 mg by mouth twice a day Continue with Effient 10 mg by mouth daily -Continue with atorvastatin 80 mg by mouth daily at bedtime -for cardiac cath tomorrow, to remain on hep gtt Paresthesia, endorsing right arm tingling as well as right thigh and occasional left arm tingling. Denies any recent falls, no strenuous activity. -If symptoms persist after cardiac etiology ruled out, she may benefit from cervical spine MRI -paresthesia resolved Hyperlipidemia Continue statins -lipid profile noted Hypertension, stable Continue home medications Tobacco abuse, indicates that she was smoking 1 pack a day and has cut down to maybe 1 or 2 occasionally. Has been counseled about tobacco abuse, she understands that it is detrimental to her health. Fatigue, patient reports increased fatigue especially after attending cardiac rehabilitation sessions, usually more in the afternoon. Also endorses some difficulty coping with recent change in health, possibly depressed -Emotional support provided For DVT prophylaxis, patient is already on heparin drip For cath tomorrow labs reviewed, stable ok to ambulate D/W RN D/W Dr. Ashton D/W pt This patient was seen by myself and Dr. Ashton, this note is written on his behalf Problem Qualifiers (1) Chest pain: Qualified Code: R07.9 - Chest pain, unspecified type (2) Hyperlipidemia: Qualified Code: E78.5 - Hyperlipidemia, unspecified hyperlipidemia type (3) Fatigue: Qualified Code: R53.83 - Fatigue, unspecified type Mandi Campoverde Dec 21, 2016 08:30
[2016-12-21] MEDS: PRASUGREL 10 MG TAB PO SCH (09:00)
--- NOTE | 2016-12-21 13:40 | PD.CARD.PN ---
Subjective Subjective Remarks Pt without complaints Objective Medications Current Medications Medications (Trade) Dose Ordered Sig/Lauri Route Start Time Stop Time Status Last Admin (NS Flush) 2 ml UNSCH PRN IVF 12/19/16 17:30 12/19/16 18:23 (Ativan Inj) 1 mg ONCE PRN IV PUSH 12/19/16 18:15 12/19/16 18:23 (Heparin Inj) 5,000 units UNSCH PRN IV 12/20/16 01:00 Heparin Sodium (Porcine) 2500 units 2,500 units UNSCH PRN IV 12/20/16 01:00 (Heparin-D5W Inj) 250 ml @ 0 mls/hr TITRATE IV 12/19/16 19:00 12/20/16 18:10 (NS Flush) 2 ml UNSCH PRN IV FLUSH 12/19/16 19:15 (NS Flush) 2 ml BID IV FLUSH 12/19/16 21:00 (Tylenol) 650 mg Q4H PRN PO 12/19/16 19:15 (Zofran Inj) 4 mg Q6H PRN IVP 12/19/16 19:15 (Narcan Inj) 0.4 mg UNSCH PRN IV 12/19/16 19:15 (Aspirin Chew) 81 mg DAILY CHEW 12/21/16 09:00 12/21/16 08:18 (Lipitor) 80 mg HS PO 12/20/16 21:00 12/20/16 20:56 (Prinivil) 10 mg DAILY PO 12/20/16 09:30 12/21/16 08:18 (Lopressor) 12.5 mg BID PO 12/20/16 09:30 12/21/16 08:18 (Effient) 10 mg DAILY PO 12/21/16 09:00 12/21/16 09:00 (Pill Splitter) 1 ea UNSCH PRN OTHER 12/20/16 09:45 Vital Signs / I&O Vital Signs Date Time Temp Pulse Resp B/P Pulse Ox O2 Delivery O2 Flow Rate FiO2 12/21/16 11:00 98.1 50 18 101/57 97 12/21/16 09:01 51 12/21/16 08:27 55 12/21/16 08:27 98.2 51 18 117/60 98 12/21/16 07:10 93 21 12/21/16 06:02 46 12/21/16 05:26 43 12/21/16 04:06 45 12/21/16 03:20 98.3 51 16 93/50 100 12/21/16 03:20 45 12/21/16 02:10 58 12/21/16 01:07 49 12/21/16 00:27 42 12/20/16 23:30 98.5 54 16 101/65 99 12/20/16 23:00 41 12/20/16 22:00 42 12/20/16 21:05 60 12/20/16 20:50 66 12/20/16 20:50 98.0 78 16 117/65 98 12/20/16 19:06 21 12/20/16 18:13 56 12/20/16 17:10 64 12/20/16 16:11 51 12/20/16 15:54 98.0 60 18 116/64 99 12/20/16 15:54 86 I/O 12/20/16 12/20/16 12/20/16 12/21/16 12/21/16 12/21/16 07:00 15:00 23:00 07:00 15:00 23:00 Intake Total 7070 ml 1340 ml 784 ml Output Total 200 ml Balance 7070 ml 1340 ml 584 ml Intake Oral 0 ml 240 ml 480 ml IV Total 7070 ml 1100 ml 304 ml Output Urine Total 200 ml # Voids 1 3 # Bowel Movements 1 Physical Exam GENERAL: Well developed, well nourished. No acute distress. HEENT: Jugular venous pressure is normal. CHEST: Lungs clear to auscultation bilaterally. Unlabored respiratory effort. CARDIAC: Regular rate and rhythm without S3, S4, or murmur. ABDOMEN: Soft, nontender, no hepatosplenomegaly. Bowel sounds present. EXTREMITIES: No clubbing, cyanosis, or edema. Laboratory Laboratory Tests Test 12/21/16 04:30 Activated Partial 42.0 SEC Thromboplast Time Triglycerides Level 88 MG/DL Cholesterol Level 116 MG/DL LDL Cholesterol 56 MG/DL HDL Cholesterol 42.3 MG/DL Cholesterol/HDL Ratio 2.74 RATIO Imaging Last 72 hours Impressions Myocardial Perfusion Scan Nuc Med 12/20/16 0000 Signed Impressions: Service Date/Time: Tuesday, December 20, 2016 13:12 - CONCLUSION: 1. Abnormal examination demonstrating a reversible perfusion defect involving portions of the septum and anterior wall. Myocardial ischemia is not excluded. RISK CATEGORY: High (>3%% Annual Mortality Rate) Dandy Garcia MD Chest X-Ray 12/19/16 2481 Signed Impressions: Service Date/Time: Monday, December 19, 2016 17:26 - CONCLUSION: Mild central pulmonary vascular congestion. Roberth Alejandro MD Assessment and Plan Assessment and Plan 1. Possible anginal equivalents - the patient denies any chest pain to me, she has had some right arm tingling. Her symptoms really due sound more radicular and neuropathic in origin. However, in light of her recent events, I do agree that consideration of ischemic etiology is not unreasonable. Her ECG and enzymes did not show any acute event. 12/21- Nuc read out as high risk and ischemia can not be excluded - pt is agreeable to cath; await input from her cardiologis Dr Rae -ivelisse on present meds 2. Smoking - the patient was counseled to quit. 3. Dyslipidemia - I agree with continuing her on a statin. Leora Edwards MD Dec 21, 2016 13:40
[2016-12-21] MEDS: ATORVASTATIN 80 MG TAB PO SCH (21:08)
[2016-12-21] MEDS: HEPARIN-D5W INJ 250 ML IV SCH (22:15)
[2016-12-22] VITALS (37 sets, daily range): BP systolic 89–132; BP diastolic 51–66; PULSE 35–67; RESP 18–20; TEMP 97.8–98.8; O2SAT 94–100
[2016-12-22 06:15] LABS: HEMATOCRIT 37.4 % (35.0-46.0); MEAN CELL VOLUME 89.5 FL (80.0-100.0); MEAN CORPUSCULAR HEMOGLOBIN 28.9 PG (27.0-34.0); MEAN CORPUSCULAR HGB CONC 32.3 % (32.0-36.0); PLATELET COUNT 161 TH/MM3 (150-450); RED BLOOD COUNT 4.18 MIL/MM3 (4.00-5.30); RED CELL DISTRIBUTION WIDTH 13.1 % (11.6-17.2); REVIEW FLAG FINAL; WHITE BLOOD COUNT 5.8 TH/MM3 (4.0-11.0)
--- NOTE | 2016-12-22 08:42 | PD.CARD.PN ---
Subjective Subjective Remarks no CV complaints Objective Medications Current Medications Medications (Trade) Dose Ordered Sig/Lauri Route Start Time Stop Time Status Last Admin (NS Flush) 2 ml UNSCH PRN IVF 12/19/16 17:30 12/19/16 18:23 (Ativan Inj) 1 mg ONCE PRN IV PUSH 12/19/16 18:15 12/19/16 18:23 (Heparin Inj) 5,000 units UNSCH PRN IV 12/20/16 01:00 Heparin Sodium (Porcine) 2500 units 2,500 units UNSCH PRN IV 12/20/16 01:00 (Heparin-D5W Inj) 250 ml @ 0 mls/hr TITRATE IV 12/19/16 19:00 12/21/16 22:15 (NS Flush) 2 ml UNSCH PRN IV FLUSH 12/19/16 19:15 (NS Flush) 2 ml BID IV FLUSH 12/19/16 21:00 (Tylenol) 650 mg Q4H PRN PO 12/19/16 19:15 (Zofran Inj) 4 mg Q6H PRN IVP 12/19/16 19:15 (Narcan Inj) 0.4 mg UNSCH PRN IV 12/19/16 19:15 (Aspirin Chew) 81 mg DAILY CHEW 12/21/16 09:00 12/21/16 08:18 (Lipitor) 80 mg HS PO 12/20/16 21:00 12/21/16 21:08 (Prinivil) 10 mg DAILY PO 12/20/16 09:30 12/21/16 08:18 (Lopressor) 12.5 mg BID PO 12/20/16 09:30 12/21/16 21:08 (Effient) 10 mg DAILY PO 12/21/16 09:00 12/21/16 09:00 (Pill Splitter) 1 ea UNSCH PRN OTHER 12/20/16 09:45 Vital Signs / I&O Vital Signs Date Time Temp Pulse Resp B/P Pulse Ox O2 Delivery O2 Flow Rate FiO2 12/22/16 06:00 49 12/22/16 05:00 54 12/22/16 04:00 43 12/22/16 03:00 98.8 50 18 113/56 98 12/22/16 03:00 47 12/22/16 02:00 52 12/22/16 01:00 47 12/22/16 00:00 47 12/21/16 23:00 43 12/21/16 23:00 98.6 51 18 110/44 99 12/21/16 22:00 49 12/21/16 21:00 50 12/21/16 20:00 21 12/21/16 20:00 79 12/21/16 19:00 64 12/21/16 19:00 97.8 69 18 103/62 99 12/21/16 18:00 62 12/21/16 17:00 54 12/21/16 16:00 97.2 55 18 118/60 100 12/21/16 16:00 60 12/21/16 15:00 51 12/21/16 14:00 62 12/21/16 12:00 52 12/21/16 11:00 98.1 50 18 101/57 97 12/21/16 11:00 52 12/21/16 10:00 52 12/21/16 09:01 51 I/O 12/21/16 12/21/16 12/21/16 12/22/16 12/22/16 12/22/16 07:00 15:00 23:00 07:00 15:00 23:00 Intake Total 784 ml 600 ml 360 ml Output Total 200 ml 2 ml Balance 584 ml 600 ml 358 ml Intake Oral 480 ml 600 ml 360 ml IV Total 304 ml Output Urine Total 200 ml 2 ml # Voids 3 # Bowel Movements 1 Physical Exam GENERAL: Well-nourished, well-developed patient. SKIN: Warm and dry. HEAD: Normocephalic. EYES: No scleral icterus. No injection or drainage. NECK: Supple, trachea midline. No JVD or lymphadenopathy. CARDIOVASCULAR: Regular rate and rhythm without murmurs, gallops, or rubs. RESPIRATORY: Breath sounds equal bilaterally. No accessory muscle use. GASTROINTESTINAL: Abdomen soft, non-tender, nondistended. EXTREMITIES: No cyanosis, or edema. NEUROLOGICAL: Awake, alert, and oriented x 3. Non-focal. Laboratory Laboratory Tests Test 12/22/16 04:50 White Blood Count 5.8 TH/MM3 Red Blood Count 4.18 MIL/MM3 Hemoglobin 12.1 GM/DL Hematocrit 37.4 % Mean Corpuscular Volume 89.5 FL Mean Corpuscular Hemoglobin 28.9 PG Mean Corpuscular Hemoglobin 32.3 % Concent Red Cell Distribution Width 13.1 % Platelet Count 161 TH/MM3 Mean Platelet Volume 8.5 FL Activated Partial 46.0 SEC Thromboplast Time Imaging Last Impressions Myocardial Perfusion Scan Nuc Med 12/20/16 0000 Signed Impressions: Service Date/Time: Tuesday, December 20, 2016 13:12 - CONCLUSION: 1. Abnormal examination demonstrating a reversible perfusion defect involving portions of the septum and anterior wall. Myocardial ischemia is not excluded. RISK CATEGORY: High (>3%% Annual Mortality Rate) Dandy Garcia MD Chest X-Ray 12/19/16 1719 Signed Impressions: Service Date/Time: Monday, December 19, 2016 17:26 - CONCLUSION: Mild central pulmonary vascular congestion. Roberth Alejandro MD Assessment and Plan Problem List: (1) Arm paresthesia, right Assessment and Plan: results of MPI noted Atypical chest pain Right arm paresthesia Bradycardia Recommendations: [facility] today Keep NPO D/C Lopressor, avoid AV blocking agents Carotid Ultrasound (2) Hyperlipidemia (3) Tobacco abuse (4) History of ST elevation myocardial infarction (STEMI) Problem Qualifiers (1) Hyperlipidemia: Qualified Code: E78.5 - Hyperlipidemia, unspecified hyperlipidemia type Ricardo Lopez MD Dec 22, 2016 08:42
[2016-12-22] MEDS: LISINOPRIL 10 MG TAB PO SCH (08:44)
[2016-12-22] MEDS: PRASUGREL 10 MG TAB PO SCH (08:44)
[2016-12-22] MEDS: METOPROLOL TARTRATE 25 MG TAB PO SCH (08:44)
[2016-12-22] MEDS: ASPIRIN 81 MG CHEW TAB CHEW SCH (08:44)
[2016-12-22] MEDS: SODIUM CHLORIDE 0.9% FLUSH 10 ML FLUSH IV FLUSH SCH ×2 (08:47→21:24)
[2016-12-22] MEDS ORDERED: HEPARIN-NS/PF INJ 500 ML ONE ×2 (08:50→08:58)
[2016-12-22] MEDS ORDERED: MIDAZOLAM HCL 2 MG/2 ML VIAL ONE (08:59)
--- NOTE | 2016-12-22 09:45 | CATHPROC ---
[facility] HIS Report Study Information Study Number Admission Scheduled Start Study Start [id number] Dec 19 2016 7:01PM 12/22/2016 Dec 22 2016 8:56AM [facility] Cardiac Catheterization Admit Source Facility Department Emergency department [facility] - Clinical Dental Technician Physician and Clinical Staff Initial Ricardo Crabtree Racking Technician Dorothy Cates,RN Racking TechnicianJohan Yuen,VLADIMIR Recorder Blessing Collins,RT(R) (BS) Scrub Arivnd Alaniz,RT(R) TECH2 Procedures Performed Procedure Location (Site) Vessel Name Coronary Angiograms LCA Left Coronary Coronary Angiograms RCA Right Coronary L Heart Cath LV Gram-hand inj. LV LV Ventricle Equipment Time Facilities Clerk Description Size Mfg Part Number Used/Scraped TRANSDUCER, NICOLE [id number] 09:15 CRESPO CALLE * Used W/STOCKCOCK *[id number] 09:34 [employer] MEDICAL VASCADE, FR5 CLOSURE SYSTEM FR 5 Used *[id number]- INTRODUCER SET, 09:15 [employer] FR 5 SC-NT-U-SST Used MICROPUNCTURE, STIFFENED *[id number] *[id number] *[id number] 09:15 [employer] INDUSTRIES PACK, CCL CUSTOM * Used *[id number] 09:15 [employer] WIRE, 3MMJ .035 180CM 180CM Used *[id number] 09:15 NAMIC MANIFOLD, 4 PORT * Used *[id number] 09:15 [employer] OMNIPAQUE, 350 MG, 150ML 150ML [id number] Used [id number] 09:15 [employer] MEDICAL BLANKET,WARM AIR CCL * Used *[id number] 09:15 TERUMO MEDICAL SHEATH, FR5 TERUMO (10CM) FR 5 [id number] Used History: Current Medications Medication Dosage/Unit Route Frequency Last Date/Time Taken Beta Apple ASA EFFIENT LOPRESSOR History: Allergies Allergy Reaction No Known Allergies History: Risk Factors Family History of Hypertension Dyslipidemia Previous TX Previous Heart Failure Premature CAD Yes Yes Yes Yes No Prior Valve Prior PCI Prior PCIDate Prior CABG Surgery No Yes 10/04/2016 No Cerebrovascular Peripheral Artery Chronic Lung On Dialysis Diabetes Disease Disease Disease No No No No No History: Stress Tests Stress or Imaging Studies Performed Yes Standard Exercise Stress Test No Stress Echo No Stress Test SPECT Stress Test SPECT Result Stress Test SPECT Ischemia Risk/Extent Yes Positive High Stress Test CMR No Cardiac CTA Coronary Calcium Score No No History: Other Current Smoker Method Packs a Day Years Used Pack Years Yes Cigarettes 1 30 30 Labs Hgb (g/dl) Hct (%) WBC (l/cumm) Platelets (thousands) 12.00-18.00 37.00-55.00 4.80-10.80 140.00-450.00 12.1 37.4 5.8 161 Glucose (mg/dl) BUN (mg/dl) Creatinine (mg/dl) BUN:Creatinine (1:x) 60.00-110.00 8.00-20.00 0.10-9.00 10.00-20.00 113 13 0.4 32.5 Na (meq/l) K (meq/l) 138.00-146.00 3.80-5.10 143 3.7 INR (PTT:PT) 0.50-2.00 1 Troponin I (ng/ml) CPK-MB (ng/ML) 0.40-2.30 0.00-7.00 0.02 Not Drawn Medication Medication Total Dose (Bolus/Oral) Medication Total Dosage/Unit 1% XYLOCAINE 20 mL FENTANYL 25 mcg VERSED 1 mg Medications (Bolus/Oral) Medication Time Given Dosage/Unit Administered By Reason VERSED 12/22/2016 9:19:15 AM 1 mg Johan Cash 1 mg VERSED given in lab by Johan Cash, VLADIMIR in Right Antecubital via Peripheral IV. FENTANYL 12/22/2016 9:20:25 AM 25 mcg Johan Cash 25 mcg FENTANYL given in lab by Johan Cash, VLADIMIR in Right Antecubital via Peripheral IV. 1% XYLOCAINE 12/22/2016 9:20:31 AM 20 mL Ricardo Lopez 20 mL 1% XYLOCAINE given in lab by Ricardo Lopez in Right Groin via Subcutaneous. Medication (Drip) Medication Time Given Dosage/Unit Concentration/Unit Diluent (ml) Solutio n HEPARIN DRIP STOPPED 12/22/2016 8:45:40 AM 0 units/hr 0 0 units/hr HEPARIN DRIP STOPPED given pre op by Johan Cash RN via Peripheral IV. Pump/Drip Flow = 0 ml/hr using [Solution Name]. IV Solutions 12/22/2016 8:56:35 AM 0 mL (IV) 500 NaCl .9 Patient arrived on IV Solutions in Right Antecubital via Peripheral IV. Pump/Drip Flow = 20 ml/hr usi ng NaCl .9. Initial Case Assessment Cardiovascular HR Rhythm NIBP Chest Pain 44 enedina 131/66 0 Edema Present Skin color Skin None Normal Warm Dry Circulatory - Right Pulses Dorsalis Pedis Femoral 2 2 Scale (0,1,2,3,4,d) Circulatory - Left Pulses Dorsalis Pedis Femoral 2 2 Scale (0,1,2,3,4,d) Circulatory - Lower Extremities Color Lower Right Color Lower Left Normal Normal Neurological State Oriented to time-place- Alert Moves all extremities person Respiration - General Respiration Rate SpO2 (%) (B/min) 16 96 Chronological Log Time Study Chronological Log 0 units/hr HEPARIN DRIP STOPPED given pre op by Johan Cash RN via Peripheral IV. Pump/Drip Flow = 0 ml/hr using 8:45:40 [Solution Name]. 8:50:54 Patient arrived via Bed. 8:50:57 Patient Name, D.O.B, / Armband Verified By R.N. 8:52:00 Consent signed by the physician and the patient and verified by the Clinical Dental Technician staff. 8:56:17 Pre-op and post- op instructions given; patient acknowledges understanding of instructions. 8:56:19 Presedation assessment performed by Clinical Dental Technician RN. 8:56:21 Patient has been NPO for More than 6Hrs. 8:56:23 Skin Breakdown none per pt 8:56:30 Patient Warmer Placed on the Table. 8:56:32 Golden Prominences Protected 8:56:34 A # 20 IV was noted in the Antecubital (right). Grade = 0 8:56:35 Patient arrived on IV Solutions in Right Antecubital via Peripheral IV. Pump/Drip Flow = 20 ml/hr using NaCl .9. 8:56:36 History and physical on the chart or being dictated. Assessment: Initial Case, HR=44 BPM, Rhythm=enedina, DRTW=369/66 mmhg, Chest Pain=0, Edema=None, Color=Normal, Skin = Warm, Dry Right Pulses: Gavin Ped=2, Femoral=2 Left Pulses: Gavin Ped=2, Femoral=2 8:56:36 Lower Right Extremities: Color=Normal Lower Left Extremities: Color=Normal Neurological: State=Alert, Ox3, DELGADO Respiration: Resp=16 B/min, SpO2=96 % Vitals capture started with the following parameters, Patient=Adult, Interval=5 min, Initial Pre htzyh=326 mmHg, 8:57:06 Deflation Rate=5 mmHg 8:57:49 HR=49 bpm, ALSN=165/66 mmhg, SpO2=99.0 %, Resp=11 B/min, Pain=0, Avi=10, Cisneros=2 8:59:55 Bilateral groins prepped with 2% chlorhexidine, and with a 3 min. waiting time. 9:02:48 HR=61 bpm, OEVZ=798/58 mmhg, SpO2=96.0 %, Resp=21 B/min, Pain=0, Avi=10, Cisneros=2 9:05:44 Pressure channel 1 zeroed. 9:06:45 Reference ECG taken 9:08:28 HR=44 bpm, RELM=106/55 mmhg, SpO2=98.0 %, Resp=14 B/min, Pain=0, Avi=10, Cisneros=2 9:12:46 HR=44 bpm, NIBP=93/59 mmhg, SpO2=98.0 %, Resp=13 B/min, Pain=0, Avi=10, Cisneros=2 9:15:36 MD arrived 9:17:41 HR=41 bpm, GQBC=333/55 mmhg, SpO2=98.0 %, Resp=11 B/min, Pain=0, Avi=10, Cisneros=2 9:19:15 1 mg VERSED given in lab by Johan Cash, RN in Right Antecubital via Peripheral IV. Time Out. Correct patient, correct procedure,correct physician, power injector not loaded with c ontrast with surgical 9:19:24 team present. Time Out Concurred by , individual staff in procedure 9:19:43 Case Start 9:20:25 25 mcg FENTANYL given in lab by Johan Cash, RN in Right Antecubital via Peripheral IV. 9:20:31 20 mL 1% XYLOCAINE given in lab by Ricardo Lopez in Right Groin via Subcutaneous. 9:23:46 Access site was Right Femoral Artery. A INTRODUCER SET, MICROPUNCTURE, STIFFENED FR 5 was advanced into the Fem Art (right) using the 9:23:56 Percutaneous technique. A SHEATH, FR5 TERUMO (10CM) FR 5 was exchanged in the Fem Art (right). This was necessary in ord er to 9:24:15 accomodate a larger catheter. 9:24:20 An injection in the Fem Art (right) was made through the SHEATH, FR5 TERUMO (10CM) FR 5. 9:24:28 Vitals capture stopped. Vitals capture started with the following parameters, Patient=Adult, Interval=5 min, Initial Pre sthgp=462 mmHg, 9:24:49 Deflation Rate=5 mmHg A JR 4.0 INFINITI CATHETER FR 5 was advanced over a wire. OMNIPAQUE, 350 MG, 150ML 150ML was use d for ::35 injections. 9::29 HR=33 bpm, TDKD=613/62 mmhg, SpO2=93.0 %, Resp=8 B/min, Pain=0, Avi=10, Cisneros=2 Recorded Pressure: LV, HR=41, Condition=Condition 1 9:26:44 (Left Ventricle) LV 95/6/16 9:27:21 The LV was manually injected with 8 cc's and visualized. OMNIPAQUE, 350 MG, 150ML 150ML used . Recorded Pressure: LV, Ao, HR=44, Condition=Condition 1 9:27:37 (Left Ventricle) LV 79/-4/14, (Aorta) Ao 90/47/65 9:28:50 The RCA was injected and visualized at various angles. OMNIPAQUE, 350 MG, 150ML 150ML used. 9:29:19 Catheter was removed A JL 4.0 INFINITI CATHETER FR 5 was advanced over a wire. OMNIPAQUE, 350 MG, 150ML 150ML was use d for :29:21 injections. 9:30:31 HR=40 bpm, TFQG=067/35 mmhg, SpO2=93.0 %, Resp=14 B/min, Pain=0, Avi=10, Cisneros=2 9:30:42 The LCA was injected and visualized at various angles. OMNIPAQUE, 350 MG, 150ML 150ML used. 9:31:52 Catheter was removed 9:33:25 VASCADE, FR5 CLOSURE SYSTEM FR 5 placement in the Fem Art (right) 9:34:44 Case End 9:34:49 Catheter(s) removed without difficulty 9:34:57 No case complications noted. 9:34:59 Cine recording checked. 9:35:02 Bedside Report will be given. 9:35:04 Contrast Scanned 9:35:07 A Left Heart Cath was performed. 9:37:06 HR=40 bpm, AQCC=495/47 mmhg, SpO2=92.0 %, Resp=17 B/min, Pain=0, Avi=10, Cisneros=2 9:39:34 Sterile dressing applied to site 9:40:01 CIC called. 9:41:10 FFUJ=972/131 mmhg, SpO2=94.0 %, Pain=0, Avi=10, Cisneros=2 9:42:13 Vitals capture stopped. 9:42:23 Patient moved to [facility] End Study - Contrast Media Used In Study Contrast Total Opened (mL) Total Used (mL) Total Wasted (mL) Omnipaque 40 40 0 End Study - Maximum Contrast Load Max Contrast Load (mL) 1292.6 End Study - Radiation Exposure Fluoro Time (minutes) 2.5 End Study - Sheaths Sheaths Pulled By Sheath Hold Time (min) Ricardo Lopez End Study - Patient Disposition Complications Transferred To Interventional Outcome No Telemetry Bed No attempt made
[2016-12-22] MEDS ORDERED: ONDANSETRON HCL 4 MG/2 ML VIAL IV PRN (10:00)
[2016-12-22] MEDS ORDERED: ATROPINE SULFATE 1 MG/ML VIAL IV PRN (10:00)
--- NOTE | 2016-12-22 10:11 | MA ---
cc: ROBERTO MENDEZ DATE: 12/22/2016 11/05/1962 PROCEDURE PERFORMED 1. Left heart catheterization. 2. Selective right and left coronary angiography. 3. Left ventriculogram. 4. Selective right common femoral artery angiography. INDICATION Atypical chest pain, recent PCI to proximal LAD in the setting of STEMI / positive stress test. DESCRIPTION OF PROCEDURE Consent was signed. The patient was brought into the cardiac lab scientist in fasting state. The right groin was prepped and draped in sterile fashion, using 1% lidocaine for local anesthesia and a micropuncture kit, a 5-Belarusian sheath was inserted into the right common femoral artery. The right common femoral artery angiography was performed to confirm position of the sheath. Then selective right and left coronary angiography was performed with a JR-4 and a JL-4 diagnostic catheter. Angiography was taken in multiple views. This was followed by introduction of the JR-4 diagnostic catheter over a wire to the left ventricle followed by pressure recordings and the ventriculogram on pullback. The patient tolerated the procedure well without complications. Estimated blood loss was less than 30cc. Total contrast used was 75cc. The right groin access site was closed Vascade closure device. RESULTS Left ventricular pressure was 79/-4 with an LVEDP of 14, aortic pressure was 90/ 47 with mean of 65. There was no gradient upon pullback from the left ventricle to aorta. Left ventriculogram revealed hypokinesis of the anterior wall with an estimated ejection fraction of 40%. ANGIOGRAPHY 1. Left main is patent. It has a 20% eccentric lesion and MAXIME III flow. 2. LAD. It has a patent stent in the proximal segment. The vessel is a transapical vessel. It has small three diagonal vessels which are also patent. The LAD also has a prominent S1 vessel which is patent. 3. The left circumflex artery has minimal luminal irregularities. It is ectatic in the mid segment. It has two OM branches which are patent with MAXIME III flow. The first OM is small and the second OM is a prominent vessel. This vessel is tortuous at the end with MAXIME III flow and no obstructive coronary artery disease. Also has an AV groove circ which is patent with MAXIME III flow and small. CONCLUSION 1. Patent stent to the proximal LAD. 2. LV systolic dysfunction with anterior wall hypokinesis and estimated ejection fraction of 40%. 3. The patient had severe episodes of sinus bradycardia in the lab scientist with a heart rate in the 40s. RECOMMENDATIONS -The patient was transferred to the [facility] for post cath care. -Given episode of severe sinus bradycardia in the lab scientist, discontinue beta- blockers. -Get a carotid ultrasound and a Holter monitor upon discharge. -The patient should follow with me in a week. MD REBEKA Gilliam/TLNhi /9:48 AM /10:00 AM NORBERTO
--- NOTE | 2016-12-22 12:07 | RADRPT ---
EXAM DATE/TIME: 12/22/2016 10:56 [facility] COMPARISON: No previous studies available for comparison. INDICATIONS : Transient ischemic attack. MEDICAL HISTORY : Myocardial infarction. Hypertension. Hypercholesterolemia. CAD. Arthritis. SURGICAL HISTORY : Cholecystectomy. Appendectomy. Coronary stent. Cardiac cath. ENCOUNTER: Initial ACUITY: 1 day PAIN SCORE: 0/10 LOCATION: Right neck. PEAK SYSTOLIC VELOCITIES (cm/sec): ICA/CCA RATIO: Right: 1.7 Left: 1.6 ICA: Right: 111.2 Left: 141.8 CCA: Right: 64.5 Left: 87.1 ECA: Right: 38.4 Left: 80.6 VERTEBRAL: Right: 67.7 antegrade Left: 40.9 antegrade Elevated flow velocities and ICA/CCA ratios have been found to correlate with increased degrees of vessel stenosis, calculated as percentage of diameter relative to a normal segment of distal ICA/CCA FINDINGS: RIGHT CAROTID: There is no evidence for a hemodynamically significant carotid stenosis. Moderate in timal hyperplasia is present with scattered calcific plaque. LEFT CAROTID: There is no evidence for a hemodynamically significant carotid stenosis. Moderate int imal hyperplasia is present with scattered calcific plaque. VERTEBRAL ARTERIES: Flow is antegrade in both vertebral arteries. MISCELLANEOUS: There are no ancillary masses or adenopathy. CONCLUSION: Moderate intimal hyperplasia and calcific plaque without hemodynamically significant sten osis. CT angiography may be of benefit. Abdirahman Garcia MD FACR Board Certified Radiologist. This report was verified electronically.
--- NOTE | 2016-12-22 12:57 | HHI.PR ---
Subjective Remarks resting flat in bed alert, talkative no chest pain bradycardia, normal trend? (Franca Hernandez) Objective Objective Results - Vital Signs Date Time Temp Pulse Resp B/P Pulse Ox O2 Delivery O2 Flow Rate FiO2 12/22/16 12:49 97.8 43 18 110/62 100 12/22/16 12:11 44 12/22/16 12:10 97.8 41 18 100/52 100 12/22/16 11:32 97.8 35 18 91/54 100 12/22/16 11:29 97.9 40 18 97/58 100 12/22/16 11:29 40 12/22/16 11:02 97.8 36 18 104/51 100 12/22/16 10:37 97.8 43 18 97/58 100 12/22/16 10:23 99 12/22/16 10:20 97.9 37 20 107/52 99 12/22/16 10:18 36 12/22/16 10:02 97.9 38 18 92/51 100 12/22/16 09:58 97.9 39 18 112/54 99 12/22/16 08:39 66 12/22/16 07:56 47 12/22/16 07:56 97.9 66 18 125/63 100 12/22/16 06:00 49 12/22/16 05:00 54 12/22/16 04:00 43 12/22/16 03:00 98.8 50 18 113/56 98 12/22/16 03:00 47 12/22/16 02:00 52 12/22/16 01:00 47 12/22/16 00:00 47 12/21/16 23:00 43 12/21/16 23:00 98.6 51 18 110/44 99 12/21/16 22:00 49 12/21/16 21:00 50 12/21/16 20:00 21 12/21/16 20:00 79 12/21/16 19:00 64 12/21/16 19:00 97.8 69 18 103/62 99 12/21/16 18:00 62 12/21/16 17:00 54 12/21/16 16:00 97.2 55 18 118/60 100 12/21/16 16:00 60 12/21/16 15:00 51 12/21/16 14:00 62 I/O 12/21/16 12/21/16 12/21/16 12/22/16 12/22/16 12/22/16 07:00 15:00 23:00 07:00 15:00 23:00 Intake Total 784 ml 600 ml 360 ml Output Total 200 ml 2 ml Balance 584 ml 600 ml 358 ml Intake Oral 480 ml 600 ml 360 ml IV Total 304 ml Output Urine Total 200 ml 2 ml # Voids 3 # Bowel Movements 1 (Franca Hernandez) Result Diagram: 12/22/16 0450 12/20/16 0203 ROS General: Weakness (mild), Other (10 point ROS done. positives noted.) Cardiac: Chest Pain (none, post heart cath) GI: BM Neuro/MS: Other (no rt. arm numbness) (Franca Hernandez) Physical Exam Physical Exam PHYSICAL EXAMINATION GENERAL: This is an obese female who appears to be in no acute distress lying flat in bed. HEAD: Normocephalic OROPHARYNGEAL: Oropharynx clear NECK: Supple. No nuchal rigidity or lymphadenopathy. Trachea midline without deviation. CARDIAC: Regular rhythm, regular rate, S1 and S2 are heard LUNGS: Clear to auscultation bilaterally. ABDOMEN: Soft, nontender, EXTREMITIES: no edema NEUROLOGICAL: Patient mood and affect appropriate. 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 Bradycardia Assessment and Plan Brief history 56-year-old white female with history of recent STEMI and stent to LAD 2. Presented to the emergency room with right arm tingling in mild chest pressure. Indicates symptoms are similar to previous myocardial infarction. Indicates right arm numbness has decreased. -appreciate card input, heart cath today, bedrest, no acute changes in stents Bradycardia, dc BB, keep on lisinopril Heparin drip dcd, carotid ultrasound today. Paresthesia, endorsing right arm tingling improved, has DDD and sacral disease, states herniation per history. Has recieved injections in the past. Discussed with Dr. Alcala Hyperlipidemia, medical management Hypertension, stable Continue home medications Tobacco abuse, encouraged for no smoking. DC planning probable for late pm or am. For DVT prophylaxis, patient is already on heparin drip D/W RN D/W Dr. 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
[2016-12-22] MEDS ORDERED: IOHEXOL 350 MG/ML 50 ML BTL (for Cath Lab) OTHER ONE (15:38)
[2016-12-22] MEDS: ATORVASTATIN 80 MG TAB PO SCH (21:24)
[2016-12-23] VITALS (12 sets, daily range): BP systolic 104–124; BP diastolic 45–70; PULSE 41–84; RESP 18; TEMP 97.7–98.4; O2SAT 96–100
[2016-12-23 05:26] LABS: APTT (PATIENT) 27.3 SEC (24.3-30.1)
[2016-12-23] MEDS: SODIUM CHLORIDE 0.9% FLUSH 10 ML FLUSH IV FLUSH SCH (09:00)
[2016-12-23] MEDS: PRASUGREL 10 MG TAB PO SCH (09:02)
[2016-12-23] MEDS: ASPIRIN 81 MG CHEW TAB CHEW SCH (09:02)
[2016-12-23] MEDS: LISINOPRIL 10 MG TAB PO SCH (09:02)
--- NOTE | 2016-12-23 10:16 | RADRPT ---
EXAM DATE/TIME: 12/23/2016 09:28 [facility] COMPARISON: No previous studies available for comparison. INDICATIONS : Right arm numbness. MEDICAL HISTORY : Hypertension. Myocardial infarction. SURGICAL HISTORY : Coronary artery stent. Cholecystectomy. Appendectomy. ENCOUNTER: Initial ACUITY: 2 day PAIN SCORE: 0/10 LOCATION: neck TECHNIQUE: Multiplanar, multisequence MRI examination of the cervical spine was performed. FINDINGS: VERTEBRAE: Normal vertebral body height. Homogeneous marrow signal. ALIGNMENT: No evidence of subluxation. CORD: Normal configuration and signal. POST FOSSA: The cerebellar tonsils are normal in position. C2-C3: The thecal sac has a normal configuration. There is no evidence of disc herniation or spinal canal s tenosis. The neural foramina are patent bilaterally. C3-C4: There is mild right lateral recess protrusion and osteophyte formation causing a very mild impression on the anterior right side of the thecal sac. Significant stenosis is not seen. There is mild narrow ing of the right neural foramina. The left neural foramen is patent. Some degree of uncovertebral hyp ertrophy may be present on the right. C4-C5: There is a minimal central disc protrusion without significant stenosis. The neural foramina are donald nt bilaterally. C5-C6: There is minimal bulging without significant stenosis. There continues to be CSF around the cord. Th e neural foramina are patent bilaterally. C6-C7: There is a minimal central disc protrusion without significant stenosis. The neural foramina are donald nt bilaterally. C7-T1: The thecal sac has a normal configuration. There is no evidence of disc herniation or spinal canal s tenosis. The neural foramina are patent bilaterally. CONCLUSION: 1. Mild right lateral recess disc protrusion at the C3-C4 level with some mild narrowing of the right neural foramina. 2. Minimal central disc protrusions at the C4-C5 and C6-C7 levels. 3. Minimal diffuse disc bulge at the C5-C6 level. Robin Canales MD on December 23, 2016 at 9:59 Board Certified Radiologist. This report was verified electronically.
--- NOTE | 2016-12-23 12:56 | HHI.PR ---
Subjective Remarks Patient is feeling good Sitting on a chair without any apparent distress Offering no complaint Review of system for 12 point system otherwise unremarkable Objective Objective Results - Vital Signs Date Time Temp Pulse Resp B/P Pulse Ox O2 Delivery O2 Flow Rate FiO2 12/23/16 12:25 55 12/23/16 11:04 97.8 84 18 104/70 98 12/23/16 11:04 70 12/23/16 10:05 78 12/23/16 09:00 73 12/23/16 08:02 47 12/23/16 08:02 97.7 59 18 124/45 98 12/23/16 06:00 42 12/23/16 05:00 48 12/23/16 04:00 41 12/23/16 04:00 98.2 49 18 108/60 100 12/23/16 03:00 48 12/23/16 02:00 42 12/23/16 01:00 50 12/23/16 00:00 98.4 54 18 106/62 96 12/23/16 00:00 58 12/22/16 23:00 62 12/22/16 22:00 50 12/22/16 21:00 62 12/22/16 20:00 62 12/22/16 20:00 98.2 53 18 102/53 94 12/22/16 19:00 61 12/22/16 18:10 65 12/22/16 17:35 99 21 12/22/16 17:06 67 12/22/16 16:47 97.8 53 18 132/62 99 12/22/16 16:04 53 12/22/16 15:53 97.8 63 18 89/57 98 12/22/16 15:12 55 12/22/16 15:12 98.3 55 18 108/56 99 12/22/16 14:44 60 12/22/16 14:43 97.8 60 18 98/53 98 12/22/16 13:57 97.8 47 18 123/66 99 12/22/16 13:10 45 I/O 12/22/16 12/22/16 12/22/16 12/23/16 12/23/16 12/23/16 07:00 15:00 23:00 07:00 15:00 23:00 Intake Total 360 ml 480 ml 300 ml Output Total 2 ml Balance 358 ml 480 ml 300 ml Intake Oral 360 ml 480 ml 300 ml Output Urine Total 2 ml # Voids 2 3 # Bowel Movements 0 Result Diagram: 12/22/16 0450 12/20/16 0203 Imaging Last Impressions Chest X-Ray 12/19/16 1719 Signed Impressions: Service Date/Time: Monday, December 19, 2016 17:26 - CONCLUSION: Mild central pulmonary vascular congestion. Roberth Alejandro MD Other Results Laboratory Tests Test 12/23/16 04:27 Activated Partial 27.3 Thromboplast Time Physical Exam Physical Exam PHYSICAL EXAMINATION GENERAL: This is an obese female who appears to be in no acute distress sitting on a chair. HEAD: Normocephalic OROPHARYNGEAL: Oropharynx clear NECK: Supple. No nuchal rigidity or lymphadenopathy. Trachea midline without deviation. CARDIAC: Regular rhythm, regular rate, S1 and S2 are heard LUNGS: Clear to auscultation bilaterally. ABDOMEN: Soft, nontender, EXTREMITIES: no edema NEUROLOGICAL: Patient mood and affect appropriate. 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 Bradycardia Plan Brief history 56-year-old white female with history of recent STEMI and stent to LAD 2. Presented to the emergency room with right arm tingling in mild chest pressure. Indicates symptoms are similar to previous myocardial infarction. Indicates right arm numbness has decreased. -appreciate card input, heart cath today, bedrest, no acute changes in stents Bradycardia, dc BB, keep on lisinopril, improving Heparin drip dcd, carotid ultrasound report reviewed. Paresthesia, endorsing right arm tingling improved, has DDD and sacral disease, states herniation per history. Has recieved injections in the past. MRI cervical spine report reviewed and explained to the patient Hyperlipidemia, medical management Hypertension, stable Continue home medications Tobacco abuse, encouraged for no smoking. DC planning probable for late pm or am. For DVT prophylaxis, patient is already on heparin drip D/W RN D/W pt Plan to discharge her home today to be followed by primary care doctor and cardiology as outpatient. Patient has been counseled about anti-smoking. Donovan Alcala MD Dec 23, 2016 12:56
--- NOTE | 2016-12-23 16:37 | HHI.DS ---
Discharge Summary Admission Date Dec 19, 2016 at 19:01 Discharge Date: Dec 23, 2016 Admitting Diagnosis chest pain, right arm paresthesia (1) Chest pain Diagnosis: Principal (2) Arm paresthesia, right Diagnosis: Principal (3) Tobacco abuse Diagnosis: Secondary (4) Hyperlipidemia Diagnosis: Secondary (5) History of ST elevation myocardial infarction (STEMI) Diagnosis: Secondary (6) Fatigue Diagnosis: Principal Procedures heart cath, nuclear stress test. Brief History This was a pleasant 56-year-old white female with recent history of STEMI in October 2016, underwent cardiac catheter and had stents [address] Patient presented to emergency room complaining of right arm intermittent tingling. Patient stated that she's had intermittent right arm tingling for several days, however yesterday the symptoms persisted and never went away. She had no other associated symptoms. Indicates that she became concerned because with her PR in October 2016 she had similar symptoms but at that time the arm felt more heavy. When she arrived in the emergency room, she felt some mild chest pressure that went away. She had no other symptoms such as shortness of breath , no nausea, no vomiting, no diaphoresis. She was undergoing cardiac rehabilitation and she had gone in yesterday morning without any difficulty. She was able to tolerate exercises without any problem. Rated the chest discomfort as 2/10. 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 Indicated that she also had some right right leg tingling as well as to the left arm as well. Indicates she has been compliant with medications. The emergency room, patient was evaluated. Laboratory workup was unremarkable. Troponin was negative. EKG did not reveal any acute ST segment elevation. He showed poor R-wave progression consistent with previous anterior PR. A repeat EKG was unchanged. Patient was started on a heparin drip. Chest x-ray revealed mild pulmonary vascular congestion. She had an echo in October that showed EF of 40-45%. At this time, stated that her symptoms are somewhat relieved, very light tingling. She had intact sensation. Patient endorsed a lot of fatigue and had been having a difficult time dealing with her recent changes in health. She was tearful and was afraid that she may have overreacted. Patient was admitted for further evaluation and treatment. CBC/BMP: 12/22/16 0450 12/20/16 0203 Significant Findings Laboratory Tests Test 12/21/16 12/22/16 04:30 04:50 Activated Partial 42.0 SEC 46.0 SEC Thromboplast Time (24.3-30.1) (24.3-30.1) Cholesterol Level 116 MG/DL (120-200) Imaging Last Impressions Cervical Spine MRI 12/23/16 0000 Signed Impressions: Service Date/Time: Friday, December 23, 2016 09:28 - CONCLUSION: 1. Mild right lateral recess disc protrusion at the C3-C4 level with some mild narrowing of the right neural foramina. 2. Minimal central disc protrusions at the C4-C5 and C6-C7 levels. 3. Minimal diffuse disc bulge at the C5-C6 level. Robin Canales MD Carotid Artery Ultrasound 12/22/16 0000 Signed Impressions: Service Date/Time: Thursday, December 22, 2016 10:56 - CONCLUSION: Moderate intimal hyperplasia and calcific plaque without hemodynamically significant stenosis. CT angiography may be of benefit. Abdirahman Garcia MD Myocardial Perfusion Scan Nuc Med 12/20/16 0000 Signed Impressions: Service Date/Time: Tuesday, December 20, 2016 13:12 - CONCLUSION: 1. Abnormal examination demonstrating a reversible perfusion defect involving portions of the septum and anterior wall. Myocardial ischemia is not excluded. RISK CATEGORY: High (>3%% Annual Mortality Rate) Dandy Garcia MD Chest X-Ray 12/19/16 1719 Signed Impressions: Service Date/Time: Monday, December 19, 2016 17:26 - CONCLUSION: Mild central pulmonary vascular congestion. Roberth Alejandro MD PE at Discharge GENERAL: This is an obese female who appears to be in no acute distress sitting on a chair. HEAD: Normocephalic OROPHARYNGEAL: Oropharynx clear NECK: Supple. No nuchal rigidity or lymphadenopathy. Trachea midline without deviation. CARDIAC: Regular rhythm, regular rate, S1 and S2 are heard LUNGS: Clear to auscultation bilaterally. ABDOMEN: Soft, nontender, EXTREMITIES: no edema NEUROLOGICAL: Patient mood and affect appropriate. 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 Bradycardia Vital signs were reviewed every 4 and when necessary any abnormals were treated. Special attention was given to her heart rate which was bradycardic at times Labs were reviewed throughout hospital stay and treated for any abnormals warranted. Brief history 56-year-old white female with history of recent STEMI and stent to LAD 2. Presented to the emergency room with right arm tingling in mild chest pressure. Indicates symptoms are similar to previous myocardial infarction. Indicates right arm numbness has decreased. Cardiology consult, and plan a care was initiated. She had nuclear stress test which was positive. At that point in time patient had cardiac catheterization. Recent cardiac stents were found to be open, no further stenting was needed. It was noted the patient had significant rhythm changes with bradycardia. Patient was taken off beta blockers. Will be followed on an outpatient basis for any further needs Bradycardia, dc BB, keep on lisinopril, improving Heparin drip dcd, carotid ultrasound done. No acute narrowing noted Paresthesia, endorsing right arm tingling improved, has DDD and sacral disease, states herniation per history. Has recieved injections in the past. MRI cervical spine report reviewed and explained to the patient Hyperlipidemia, medical management Hypertension, stable Continue home medications Tobacco abuse, encouraged for no smoking. Patient was educated for healthy lifestyle, diet exercise and weight loss Discharge planning initiated evaluated throughout her hospital stay. It is thought that patient can go home, and follow-up with her PCP in one week or 2 as well as cardiology. For DVT prophylaxis, patient is already on heparin drip Pt Condition on Discharge: Good Discharge Disposition: Discharge Home Discharge Instructions DIET: Follow Instructions for: Heart Healthy Diet Activities you can perform: Weight Bearing as [place] Follow up Referrals: Cardiology - 2 Weeks with juliana Langley PCP Follow-up - 1 Week Continued Medications: Aspirin (Aspirin) 81 Mg Chew 81 MG CHEW DAILY Ref 0 TAB Atorvastatin (Atorvastatin) 80 Mg Tab 80 MG PO HS hYPERLIPIDEMIA #30 TAB Lisinopril (Lisinopril) 10 Mg Tab 10 MG PO DAILY CAD #30 TAB Prasugrel (Effient) 10 Mg Tab 10 MG PO DAILY CAD #30 TAB Discontinued Medications: Metoprolol Tartrate (Metoprolol Tartrate) 25 Mg Tab 12.5 MG PO BID CAD #60 TAB Franca Hernandez Dec 23, 2016 16:37
== END 2016-12-23 14:49 | disposition home or self-care (01) | DRG 287 ==
LOC: PHED 17:05 → PHEDA 19:01 → HCIN 23:10 → HCIS 12-21 09:42
PROVIDERS: ADMIT Specialist; ATTEND Specialist
PROC: 4A023N7 Measurement of Cardiac Sampling and Pressure, Left Heart, Percutaneous Approach (ICD-10-PCS; principal; 2016-12-22)
PROC: B211YZZ Fluoroscopy of Multiple Coronary Arteries using Other Contrast (ICD-10-PCS; 2016-12-22)
PROC: B215YZZ Fluoroscopy of Left Heart using Other Contrast (ICD-10-PCS; 2016-12-22)
DX: R07.89 Other chest pain (principal); M50.21 Other cervical disc displacement, high cervical region; I10 Essential (primary) hypertension; I25.2 Old myocardial infarction; I25.10 Atherosclerotic heart disease of native coronary artery without angina pectoris; R00.1 Bradycardia, unspecified; R20.2 Paresthesia of skin; F17.210 Nicotine dependence, cigarettes, uncomplicated; E78.5 Hyperlipidemia, unspecified; Z95.5 Presence of coronary angioplasty implant and graft
CPT/HCPCS: 71010; 72141; 78452; 80048; 80061; 82550; 82552; 82607; 83735; 84443; 84484; 85025; 85027; 85610; 85730; 93005; 93017; 93458; 93880; 96374; A9502; C1760; C1769; C1893; G0269; J1644; J2060; J2250; J2785; J3010; J3480; Q9967

== ENCOUNTER → 2017-04-21 | Outpatient (CLI) | payer OTHER ==
[~2017-04-21] MED LIST changes: +ASPI81CH CHEW; -Aspirin Chew PO; -METO25TA3 PO
[2017-04-21 13:18] LABS: INDIRECT BILIRUBIN 0.5 MG/DL (0.0-0.8); TOTAL BILIRUBIN ADULT 0.6 MG/DL (0.2-1.0)
== END ==
LOC: PLAB 08:00
PROVIDERS: ATTEND Internal Medicine Interventional Cardiology
DX: E78.2 Mixed hyperlipidemia (principal); Z79.899 Other long term (current) drug therapy
CPT/HCPCS: 36415; 80076; 82550

== ENCOUNTER 2017-08-01 23:27 | Emergency (ER) | payer OTHER ==
[~2017-08-01] VITALS: Ht 160 cm; Wt 105.5 kg
[~2017-08-01 23:27] MED LIST changes: +ASPI-516 CHEW; -ASPI81CH CHEW; -ATOR1TAB18 PO; +ATOR80TA45 PO
[2017-08-01 23:31] VITALS: BP 167/79; PULSE 79; RESP 18; TEMP 97.8; O2SAT 99
[2017-08-01] MEDS ORDERED: PLAV75TA29 PO (23:40)
--- NOTE | 2017-08-02 00:41 | PD ---
HPI Chief Complaint: Injury Time Seen by Provider: 00:35 Travel History International Travel<30 days: No Contact w/Intl Traveler<30days: No Traveled to known affect area: No History of Present Illness HPI The patient is a 56-year-old female that injured her left foot 2 weeks ago and she complains of persistent pain. She apparently kicked her mother's wheelchair accidentally and a metal bar pushed between the fourth and fifth toes. She complains of persistent pain on the fifth distal metatarsal and also has some pain on the fifth toe. She denies any other injury. PFSH Past Medical History Cancer: No Cardiac Catheterization: Yes (TWICE) Cardiovascular Problems: Yes ( ) High Cholesterol: Yes Coronary Artery Disease: Yes Diabetes: No Diminished Hearing: No Endocrine: No Genitourinary: No Hepatitis: No Hiatal Hernia: No Hypertension: Yes Immune Disorder: No Musculoskeletal: Yes Neurologic: No Psychiatric: No Reproductive: No Respiratory: Yes (hx pneumonia) Immunizations Current: No Myocardial Infarction: Yes (OCTOBER 2016) Pneumonia: Yes Thyroid Disease: No Influenza Vaccination: Yes ?: Not Menopausal: Yes : 0 Past Surgical History Abdominal Surgery: Yes AICD: No Appendectomy: Yes Cholecystectomy: Yes Coronary Stent: Yes (10/2016 X2 STENTS) Joint Replacement: No Pacemaker: No Other Surgery: Yes Family History Family Myocardial Infarction: Yes (FATHER) Social History Alcohol Use: Yes (1 GLASS WINE MONTHLY) Tobacco Use: No (QUIT OCTOBER 2016) Substance Use: No Allergies-Medications (Allergen,Severity, Reaction): Coded Allergies: No Known Allergies (Verified Adverse Reaction, Unknown, 08/01/17) Reported Meds & Prescriptions Reported Meds & Active Scripts Active Lisinopril 10 Mg Tab 10 Mg PO DAILY Atorvastatin (Atorvastatin Calcium) 80 Mg Tab 80 Mg PO HS Reported Plavix (Clopidogrel Bisulfate) 75 Mg Tab 75 Mg PO DAILY Aspirin 81 Mg Chew 81 Mg CHEW DAILY Review of Systems Except as stated in HPI: all other systems reviewed are Neg Physical Exam Narrative GENERAL: Well-nourished, well-developed patient in slight apparent distress with her left foot discomfort. Her vital signs show blood pressure 167/79 but are otherwise normal. SKIN: Focused skin assessment warm/dry. HEAD: Normocephalic. EYES: No scleral icterus. No injection or drainage. NECK: Supple, trachea midline. No JVD or lymphadenopathy. CARDIOVASCULAR: Regular rate and rhythm without murmurs, gallops, or rubs. RESPIRATORY: Breath sounds equal bilaterally. No accessory muscle use. GASTROINTESTINAL: Abdomen soft, non-tender, nondistended. MUSCULOSKELETAL: No cyanosis, or edema. There is tenderness on the fifth distal metatarsal and tenderness over the fifth toe although no deformity is present there is minimal swelling in this area. No ecchymoses are seen. BACK: Nontender without obvious deformity. No CVA tenderness. Data Data Last Documented VS Vital Signs Date Time Temp Pulse Resp B/P (MAP) Pulse Ox O2 Delivery O2 Flow Rate FiO2 08/01/17 23:31 97.8 79 18 167/79 (108) 99 Orders Orders Foot, Complete ([id number]) (08/02/17 00:38) [facility] Medical Decision Making Medical Screen Exam Complete: Yes Emergency Medical Condition: Yes Medical Record Reviewed: Yes Interpretation(s) X-ray show fracture of the proximal phalanx of the fifth toe Differential Diagnosis Fractured toe, contusion toe, fracture fifth metatarsal, contusion fifth metatarsal Narrative Course The patient has fracture of the left fifth toe and contusion of the fifth metatarsal. Diagnosis Primary Impression: Fracture of fifth toe, left, closed Additional Impression: Contusion, foot Disposition: 01 DISCHARGE HOME Condition: Stable Kyle Luciano MD Aug 02, 2017 00:41
--- NOTE | 2017-08-02 00:52 | RADRPT ---
EXAM DATE/TIME: 08/02/2017 00:42 [facility] COMPARISON: No previous studies available for comparison. INDICATIONS : Left foot, fifth digit pain post wheelchair accident. MEDICAL HISTORY : Hypertension. Myocardial infarction SURGICAL HISTORY : Coronary artery stent. Cholecystectomy. Appendectomy ENCOUNTER: Initial ACUITY: 2 weeks PAIN SCORE: 8/10 LOCATION: Left foot FINDINGS: There is fracturing of the distal aspect of the fifth proximal phalanx with extension into the PIP [place] int. If the displacement is not seen. No other fractures seen. CONCLUSION: Fracturing of the distal aspect of the 5th proximal phalanx. Robin Canales MD on August 02, 2017 at 0:48 Board Certified Radiologist. This report was verified electronically.
== END 2017-08-02 01:23 | disposition home or self-care (01) ==
LOC: PHED 23:27
DX: S92.515A Nondisplaced fracture of proximal phalanx of left lesser toe(s), initial encounter for closed fracture (principal); S90.32XA Contusion of left foot, initial encounter; W22.8XXA Striking against or struck by other objects, initial encounter; E78.00 Pure hypercholesterolemia, unspecified; I25.10 Atherosclerotic heart disease of native coronary artery without angina pectoris; I10 Essential (primary) hypertension; I25.2 Old myocardial infarction; Z95.5 Presence of coronary angioplasty implant and graft
CPT/HCPCS: 73630; 99283

== ENCOUNTER → 2017-11-06 | Outpatient (CLI) | payer OTHER ==
[~2017-11-06] MED LIST changes: +PLAV75TA29 PO; -PRAS10TA PO
[2017-11-06 10:51] LABS: ALBUMIN 3.8 GM/DL (3.4-5.0); DIRECT BILIRUBIN ADULT 0.1 MG/DL (0.0-0.2)
[2017-11-06 10:54] LABS: CHOLESTEROL/ HDL RATIO 3.34 RATIO; HDL CHOLESTEROL 49.6 MG/DL (40.0-60.0); INDIRECT BILIRUBIN 0.3 MG/DL (0.0-0.8); TOTAL BILIRUBIN ADULT 0.4 MG/DL (0.2-1.0); TOTAL PROTEIN 7.4 GM/DL (6.4-8.2)
== END ==
LOC: PLAB 07:19
PROVIDERS: ATTEND Internal Medicine Interventional Cardiology
DX: E78.5 Hyperlipidemia, unspecified (principal); I10 Essential (primary) hypertension; Z79.899 Other long term (current) drug therapy
CPT/HCPCS: 36415; 80061; 80076; 82550

== ENCOUNTER 2018-06-20 16:55 | Observation (INO) ==
--- NOTE | 2018-06-20 17:45 | ED ---
HPI General Chief complaint: Nausea/Vomiting/Diarrhea Stated complaint: Diarrhea/Nause/Fever X0200 Time Seen by Provider: 06/20/18 17:42 Source: patient Mode of arrival: ambulatory Limitations: no limitations History of Present Illness HPI Narrative: Patient woke up suddenly at about 0200 today experiencing abdominal crampy pain associated with nausea vomiting and diarrhea.....denies anyone who had dinner having any sickness, however she ate pizza for lunch yesterday. Patient's primary care doctor is Dr. brady Past medical history significant for IA status post 2 stents, cholecystectomy, appendectomy, former cigarette smoker. MD complaint: Reports nausea, vomiting and diarrhea Onset (ago): hour(s) (14) Description of Diarrhea: watery Related Data Home Medications Medication Instructions Recorded Confirmed aspirin 81 mg PO DAILY 03/17/18 06/20/18 atorvastatin [Lipitor] 20 mg PO DAILY 03/17/18 06/20/18 lisinopril 20 mg PO DAILY 03/17/18 06/20/18 metoprolol tartrate 12.5 mg PO DAILY 03/17/18 06/20/18 Previous Rx's Medication Instructions Recorded hydrocodone-acetaminophen [[place]] See Label Instructions .ROUTE 05/31/18 .COMPLEX #20 tab Allergies Allergy/AdvReac Type Severity Reaction Status Date / Time No Known Allergies Allergy Verified 06/20/18 17:43 Review of Systems ROS: all other systems reviewed are negative PMFSH History History Provided By: Patient Medical History Medical History Heart attack (Acute) Surgical History Surgical History History of appendectomy (Acute) History of cardiac cath (Acute) History of cholecystectomy (Acute) Family History Family History Father Cardiovascular disease Mother Cardiovascular disease Social History Social History Substance History: No History of Abuse Second Hand Smoke Exposure: No Smoking Status: Former smoker Tobacco Type: Cigarettes How Often Do You Have a Drink Containing Alcohol: Monthly or less Recent Travel in [facility] within the Last 8 Weeks: No Recent Out of Country Travel within the Last 8 Weeks: No Exam Narrative Exam Narrative: GENERAL: female in no apparent distress. SKIN: Warm and dry. HEAD: Atraumatic. Normocephalic. EYES: Pupils equal and round. No scleral icterus. No injection or drainage. ENT: No nasal bleeding or discharge. Mucous membranes pink and moist. NECK: Trachea midline. No JVD. CARDIOVASCULAR: Regular rate and rhythm. no rubs or gallops RESPIRATORY: No accessory muscle use. Clear to auscultation. Breath sounds equal bilaterally. GASTROINTESTINAL: Abdomen soft, non-tender, nondistended. No rebound or guarding MUSCULOSKELETAL: Extremities without clubbing, cyanosis, or edema. No obvious deformities. NEUROLOGICAL: Awake and alert. No obvious cranial nerve deficits. Motor grossly within normal limits. Five out of 5 muscle strength in the arms and legs. Normal speech. PSYCHIATRIC: Appropriate mood and affect; insight and judgment normal. Course Initial Documented Vital Signs Temperature 99.0 F 06/20/18 17:04 Pulse Rate 110 H 06/20/18 17:04 Respiratory Rate 18 06/20/18 17:04 Blood Pressure 184/86 H 06/20/18 17:04 Pulse Oximetry 96 06/20/18 17:04 Last Documented Vital Signs Temperature 98.0 F 06/24/18 12:00 Pulse Rate 71 06/24/18 12:00 Respiratory Rate 17 06/24/18 12:00 Blood Pressure 122/56 L 06/24/18 12:00 Pulse Oximetry 98 06/24/18 12:00 Medical Decision Making MDM Narrative Medical Screen Exam Complete: Yes Emergency Medical Condition: Yes Medical Records Medical records reviewed: Yes I reviewed the patient's medical records. Lab Data Lab results reviewed: Yes I reviewed the patient's lab results. Result diagrams: 06/23/18 08:05 06/23/18 08:05 Lab Results 06/20/18 06/20/18 06/20/18 Range/Units 17:52 17:52 19:18 CBC w Diff Auto diff final WBC 8.4 (4.0-11.0) th/mm3 RBC 5.05 (4.00-5.30) mil/mm3 Hgb 15.1 (11.6-15.3) gm/dL Hct 44.7 (35.0-46.0) % MCV 88.6 (80.0-100.0) fL MCH 29.8 (27.0-34.0) pg MCHC 33.7 (32.0-36.0) % RDW 12.1 (11.6-17.2) % Plt Count 172 (150-450) th/mm3 MPV 7.9 (7.0-11.0) fL Neut % (Auto) 85.1 H (16.0-70.0) % Lymph % (Auto) 7.9 L (9.0-44.0) % [place] % (Auto) 6.7 (0.0-8.0) % Eos % (Auto) 0.0 (0.0-4.0) % Baso % (Auto) 0.3 (0.0-2.0) % Neut # (Auto) 7.1 (1.8-7.7) th/mm3 Lymph # (Auto) 0.7 L (1.0-4.8) th/mm3 [place] # (Auto) 0.6 (0.0-0.9) th/mm3 Eos # (Auto) 0.0 (0.0-0.4) th/mm3 Baso # (Auto) 0.0 (0.0-0.2) th/mm3 WBC Differential . Differential Comment . Sodium 134 L (136-145) meq/L Potassium 3.4 L (3.5-5.1) meq/L Chloride 103 (98-107) meq/L Carbon Dioxide 19.4 L (21.0-32.0) meq/L Anion Gap 12 (5-15) meq/L BUN 13 (7-18) mg/dL Creatinine 0.73 (0.50-1.00) mg/dL Estimated GFR 82 L (>89) mL/min POC Glucose 85 (68-110) mg/dl Random Glucose 102 (74-106) mg/dL Lactic Acid (0.4-2.0) mmol/L Calcium 8.4 L (8.5-10.1) mg/dL Magnesium (1.5-2.5) mg/dL Total Bilirubin 1.1 H (0.2-1.0) mg/dL AST 17 (15-37) U/L ALT 17 (10-53) U/L Alkaline Phosphatase 69 (45-117) U/L Total Protein 7.3 (6.4-8.2) g/dL Albumin 3.4 (3.4-5.0) g/dL Lipase 89 (73-393) U/L Urine Color (Yellw/Straw) Urine Clarity (Clear) Urine pH (5.0-8.5) Ur Specific [place] (1.002-1.035) Urine Protein (Neg-Trace) mg/dL Urine Glucose (UA) (Negative) mg/dL Urine Ketones (Negative) mg/dL Urine Occult Blood (Negative) Urine Nitrate (Negative) Urine Bilirubin (Negative) Urine Urobilinogen (Less than 2) mg/dL Ur Leukocyte Esterase (Negative) Urine RBC (0-3) /hpf Urine WBC (0-5) /hpf Ur Squamous Epith Cells (0-5) /hpf Urine Bacteria (None) /hpf Micro UA Comment Ur Microscopic Review Urine Culture Comments Stl C.difficile DNA Amp (Negative) St C. diff Tox Epid 027 (Negative) 06/21/18 06/21/18 06/21/18 Range/Units 02:00 04:20 04:20 CBC w Diff Auto diff final WBC 3.7 L D (4.0-11.0) th/mm3 RBC 4.27 (4.00-5.30) mil/mm3 Hgb 12.8 D (11.6-15.3) gm/dL Hct 38.0 (35.0-46.0) % MCV 89.2 (80.0-100.0) fL MCH 29.9 (27.0-34.0) pg MCHC 33.6 (32.0-36.0) % RDW 12.3 (11.6-17.2) % Plt Count 129 L (150-450) th/mm3 MPV 7.9 (7.0-11.0) fL Neut % (Auto) 72.5 H (16.0-70.0) % Lymph % (Auto) 13.2 (9.0-44.0) % [place] % (Auto) 13.4 H (0.0-8.0) % Eos % (Auto) 0.6 (0.0-4.0) % Baso % (Auto) 0.3 (0.0-2.0) % Neut # (Auto) 2.7 (1.8-7.7) th/mm3 Lymph # (Auto) 0.5 L (1.0-4.8) th/mm3 [place] # (Auto) 0.5 (0.0-0.9) th/mm3 Eos # (Auto) 0.0 (0.0-0.4) th/mm3 Baso # (Auto) 0.0 (0.0-0.2) th/mm3 WBC Differential . Differential Comment . Sodium 141 (136-145) meq/L Potassium 3.2 L (3.5-5.1) meq/L Chloride 110 H (98-107) meq/L Carbon Dioxide 20.5 L (21.0-32.0) meq/L Anion Gap 11 (5-15) meq/L BUN 9 (7-18) mg/dL Creatinine 0.55 (0.50-1.00) mg/dL Estimated GFR Greater than 89 (>89) mL/min POC Glucose (68-110) mg/dl Random Glucose 102 (74-106) mg/dL Lactic Acid (0.4-2.0) mmol/L Calcium 7.5 L D (8.5-10.1) mg/dL Magnesium (1.5-2.5) mg/dL Total Bilirubin 0.6 (0.2-1.0) mg/dL AST 23 (15-37) U/L ALT 25 (10-53) U/L Alkaline Phosphatase 54 (45-117) U/L Total Protein 5.8 L D (6.4-8.2) g/dL Albumin 2.6 L D (3.4-5.0) g/dL Lipase (73-393) U/L Urine Color (Yellw/Straw) Urine Clarity (Clear) Urine pH (5.0-8.5) Ur Specific [place] (1.002-1.035) Urine Protein (Neg-Trace) mg/dL Urine Glucose (UA) (Negative) mg/dL Urine Ketones (Negative) mg/dL Urine Occult Blood (Negative) Urine Nitrate (Negative) Urine Bilirubin (Negative) Urine Urobilinogen (Less than 2) mg/dL Ur Leukocyte Esterase (Negative) Urine RBC (0-3) /hpf Urine WBC (0-5) /hpf Ur Squamous Epith Cells (0-5) /hpf Urine Bacteria (None) /hpf Micro UA Comment Ur Microscopic Review Urine Culture Comments Stl C.difficile DNA Amp Negative (Negative) St C. diff Tox Epid 027 Negative (Negative) 06/21/18 06/21/18 06/22/18 Range/Units 13:15 17:15 05:45 CBC w Diff WBC (4.0-11.0) th/mm3 RBC (4.00-5.30) mil/mm3 Hgb 13.0 (11.6-15.3) gm/dL Hct 39.2 (35.0-46.0) % MCV (80.0-100.0) fL MCH (27.0-34.0) pg MCHC (32.0-36.0) % RDW (11.6-17.2) % Plt Count (150-450) th/mm3 MPV (7.0-11.0) fL Neut % (Auto) (16.0-70.0) % Lymph % (Auto) (9.0-44.0) % [place] % (Auto) (0.0-8.0) % Eos % (Auto) (0.0-4.0) % Baso % (Auto) (0.0-2.0) % Neut # (Auto) (1.8-7.7) th/mm3 Lymph # (Auto) (1.0-4.8) th/mm3 [place] # (Auto) (0.0-0.9) th/mm3 Eos # (Auto) (0.0-0.4) th/mm3 Baso # (Auto) (0.0-0.2) th/mm3 WBC Differential Differential Comment Sodium (136-145) meq/L Potassium (3.5-5.1) meq/L Chloride (98-107) meq/L Carbon Dioxide (21.0-32.0) meq/L Anion Gap (5-15) meq/L BUN (7-18) mg/dL Creatinine (0.50-1.00) mg/dL Estimated GFR (>89) mL/min POC Glucose (68-110) mg/dl Random Glucose (74-106) mg/dL Lactic Acid 1.1 (0.4-2.0) mmol/L Calcium (8.5-10.1) mg/dL Magnesium (1.5-2.5) mg/dL Total Bilirubin (0.2-1.0) mg/dL AST (15-37) U/L ALT (10-53) U/L Alkaline Phosphatase (45-117) U/L Total Protein (6.4-8.2) g/dL Albumin (3.4-5.0) g/dL Lipase (73-393) U/L Urine Color Yellow ([place]ellw/Straw) Urine Clarity Clear (Clear) Urine pH 5.0 (5.0-8.5) Ur Specific [place] Greater/equal 1.030 (1.002-1.035) Urine Protein Negative (Neg-Trace) mg/dL Urine Glucose (UA) Negative (Negative) mg/dL Urine Ketones 40 H (Negative) mg/dL Urine Occult Blood Small H (Negative) Urine Nitrate Positive H (Negative) Urine Bilirubin Negative (Negative) Urine Urobilinogen 0.2 (Less than 2) mg/dL Ur Leukocyte Esterase Trace H (Negative) Urine RBC 4-15 H (0-3) /hpf Urine WBC 0-5 (0-5) /hpf Ur Squamous Epith Cells 0-5 (0-5) /hpf Urine Bacteria Few H (None) /hpf Micro UA Comment Culture indicated Ur Microscopic Review Microscopic reviewed Urine Culture Comments Culture indicated Stl C.difficile DNA Amp (Negative) St C. diff Tox Epid 027 (Negative) 06/22/18 06/22/18 06/23/18 Range/Units 05:50 05:50 08:05 CBC w Diff Auto diff final WBC 4.1 (4.0-11.0) th/mm3 RBC 4.14 (4.00-5.30) mil/mm3 Hgb 12.3 (11.6-15.3) gm/dL Hct 37.0 (35.0-46.0) % MCV 89.4 (80.0-100.0) fL MCH 29.6 (27.0-34.0) pg MCHC 33.2 (32.0-36.0) % RDW 12.0 (11.6-17.2) % Plt Count 128 L (150-450) th/mm3 MPV 8.1 (7.0-11.0) fL Neut % (Auto) 60.8 (16.0-70.0) % Lymph % (Auto) 23.7 (9.0-44.0) % [place] % (Auto) 14.4 H (0.0-8.0) % Eos % (Auto) 0.6 (0.0-4.0) % Baso % (Auto) 0.5 (0.0-2.0) % Neut # (Auto) 2.5 (1.8-7.7) th/mm3 Lymph # (Auto) 1.0 (1.0-4.8) th/mm3 [place] # (Auto) 0.6 (0.0-0.9) th/mm3 Eos # (Auto) 0.0 (0.0-0.4) th/mm3 Baso # (Auto) 0.0 (0.0-0.2) th/mm3 WBC Differential . Differential Comment . Sodium 139 141 (136-145) meq/L Potassium 3.3 L 3.8 (3.5-5.1) meq/L Chloride 108 H 109 H (98-107) meq/L Carbon Dioxide 22.2 26.2 (21.0-32.0) meq/L Anion Gap 9 6 (5-15) meq/L BUN 7 4 L (7-18) mg/dL Creatinine 0.44 L 0.55 (0.50-1.00) mg/dL Estimated GFR Greater than 89 Greater than 89 (>89) mL/min POC Glucose (68-110) mg/dl Random Glucose 76 81 (74-106) mg/dL Lactic Acid (0.4-2.0) mmol/L Calcium 7.6 L 7.7 L (8.5-10.1) mg/dL Magnesium 1.8 (1.5-2.5) mg/dL Total Bilirubin (0.2-1.0) mg/dL AST (15-37) U/L ALT (10-53) U/L Alkaline Phosphatase (45-117) U/L Total Protein (6.4-8.2) g/dL Albumin (3.4-5.0) g/dL Lipase (73-393) U/L Urine Color ([place]ell[place]/Straw) Urine Clarity (Clear) Urine pH (5.0-8.5) Ur Specific [place] (1.002-1.035) Urine Protein (Neg-Trace) mg/dL Urine Glucose (UA) (Negative) mg/dL Urine Ketones (Negative) mg/dL Urine Occult Blood (Negative) Urine Nitrate (Negative) Urine Bilirubin (Negative) Urine Urobilinogen (Less than 2) mg/dL Ur Leukocyte Esterase (Negative) Urine RBC (0-3) /hpf Urine WBC (0-5) /hpf Ur Squamous Epith Cells (0-5) /hpf Urine Bacteria (None) /hpf Micro UA Comment Ur Microscopic Review Urine Culture Comments Stl C.difficile DNA Amp (Negative) St C. diff Tox Epid 027 (Negative) 06/23/18 Range/Units 08:05 CBC w Diff Auto diff final WBC 4.8 (4.0-11.0) th/mm3 RBC 4.06 (4.00-5.30) mil/mm3 Hgb 12.3 (11.6-15.3) gm/dL Hct 36.8 (35.0-46.0) % MCV 90.6 (80.0-100.0) fL MCH 30.2 (27.0-34.0) pg MCHC 33.4 (32.0-36.0) % RDW 12.8 (11.6-17.2) % Plt Count 147 L (150-450) th/mm3 MPV 8.2 (7.0-11.0) fL Neut % (Auto) 65.2 (16.0-70.0) % Lymph % (Auto) 22.7 (9.0-44.0) % [place] % (Auto) 10.8 H (0.0-8.0) % Eos % (Auto) 0.7 (0.0-4.0) % Baso % (Auto) 0.6 (0.0-2.0) % Neut # (Auto) 3.2 (1.8-7.7) th/mm3 Lymph # (Auto) 1.1 (1.0-4.8) th/mm3 [place] # (Auto) 0.5 (0.0-0.9) th/mm3 Eos # (Auto) 0.0 (0.0-0.4) th/mm3 Baso # (Auto) 0.0 (0.0-0.2) th/mm3 WBC Differential . Differential Comment . Sodium (136-145) meq/L Potassium (3.5-5.1) meq/L Chloride (98-107) meq/L Carbon Dioxide (21.0-32.0) meq/L Anion Gap (5-15) meq/L BUN (7-18) mg/dL Creatinine (0.50-1.00) mg/dL Estimated GFR (>89) mL/min POC Glucose (68-110) mg/dl Random Glucose (74-106) mg/dL Lactic Acid (0.4-2.0) mmol/L Calcium (8.5-10.1) mg/dL Magnesium (1.5-2.5) mg/dL Total Bilirubin (0.2-1.0) mg/dL AST (15-37) U/L ALT (10-53) U/L Alkaline Phosphatase (45-117) U/L Total Protein (6.4-8.2) g/dL Albumin (3.4-5.0) g/dL Lipase (73-393) U/L Urine Color ([place]/Straw) Urine Clarity (Clear) Urine pH (5.0-8.5) Ur Specific [place] (1.002-1.035) Urine Protein (Neg-Trace) mg/dL Urine Glucose (UA) (Negative) mg/dL Urine Ketones (Negative) mg/dL Urine Occult Blood (Negative) Urine Nitrate (Negative) Urine Bilirubin (Negative) Urine Urobilinogen (Less than 2) mg/dL Ur Leukocyte Esterase (Negative) Urine RBC (0-3) /hpf Urine WBC (0-5) /hpf Ur Squamous Epith Cells (0-5) /hpf Urine Bacteria (None) /hpf Micro UA Comment Ur Microscopic Review Urine Culture Comments Stl C.difficile DNA Amp (Negative) St C. diff Tox Epid 027 (Negative) Imaging Data Attestation: I personally reviewed and interpreted this imaging study as follows : Radiologist's impression: Abdomen/Pelvis CT 06/20/18 17:52 CONCLUSION: Essentially unremarkable study except for questionable fatty liver . Discharge Plan Discharge Disposition Patient Disposition: ED Admit(ED Internal Use Only) Discharge Condition Condition: Stable Discharge Order Discharge Orders: Discharge Order (Routine); Ordered 06/24/18 Ordered By: Albin Luciano ED Use Only Admit Order (Routine); Ordered 06/20/18 Ordered By: Elijah Samano Discharge Details Anticipated Discharge Date: 06/24/18 Diagnosis: Dehydration, Transient hypotension, Enteritis Physicians Team ED Provider: Elijah Samano Primary Care Provider: Rahul Butler Attending Provider: Vangie Davis Status ED Status: Left Department Discharge Information Discharge Date/Time: 06/20/18 21:15
[2018-06-20] MEDS ORDERED: Sod Chloride 0.9% Inj 1,000 ML IV.SIG ONE ×2 (17:52→18:30)
[2018-06-20] MEDS ORDERED: Morphine Inj 4 MG/ML Vial IV.PUSH ONE (17:52)
[2018-06-20 18:06] LABS: Baso % (Auto) 0.3 % (0.0-2.0); Hematocrit 44.7 % (35.0-46.0); Hemoglobin 15.1 gm/dL (11.6-15.3); Lymph # (Auto) 0.7 th/mm3 (1.0-4.8); Lymph % (Auto) 7.9 % (9.0-44.0); Mean Corpuscular HGB Conc 33.7 % (32.0-36.0); Mean Corpuscular Hemoglobin 29.8 pg (27.0-34.0); Mean Corpuscular Volume 88.6 fL (80.0-100.0); Mean Platelet Volume 7.9 fL (7.0-11.0); Mono # (Auto) 0.6 th/mm3 (0.0-0.9); Mono % (Auto) 6.7 % (0.0-8.0); Neut # (Auto) 7.1 th/mm3 (1.8-7.7); Neut % (Auto) 85.1 % (16.0-70.0); Platelet Count 172 th/mm3 (150-450); Red Blood Count 5.05 mil/mm3 (4.00-5.30); Red Cell Distribution Width 12.1 % (11.6-17.2); White Blood Count 8.4 th/mm3 (4.0-11.0)
[2018-06-20 18:13] LABS: Chloride 103 meq/L (98-107); Potassium 3.4 meq/L (3.5-5.1); Sodium 134 meq/L (136-145)
[2018-06-20 18:16] LABS: Calcium 8.4 mg/dL (8.5-10.1)
[2018-06-20 18:17] LABS: Albumin 3.4 g/dL (3.4-5.0); Anion Gap 12 meq/L (5-15); Blood Urea Nitrogen 13 mg/dL (7-18); Carbon Dioxide 19.4 meq/L (21.0-32.0); Glucose,Random 102 mg/dL (74-106); Lipase 89 U/L (73-393)
[2018-06-20 18:20] LABS: Alanine Aminotransferase 17 U/L (10-53); Aspartate Aminotransferase 17 U/L (15-37); Glomerular Filtration Rate 82 mL/min (>89)
[2018-06-20 18:22] LABS: Total Protein 7.3 g/dL (6.4-8.2)
[2018-06-20 18:23] LABS: Alkaline Phosphatase 69 U/L (45-117)
--- NOTE | 2018-06-20 19:03 | CT ---
EXAM DATE: 06/20/2018 6:57 PM EST AGE/SEX: 57 years / Female INDICATIONS: Nausea, vomiting, and diarrhea. Diffuse abdominal pain. CLINICAL DATA: This is the patient's initial encounter. Patient reports that signs and symptoms have been present for 1 day and indicates a pain score of 10/10. MEDICAL/SURGICAL HISTORY: Myocardial infarction. Appendectomy. Cholecystectomy. RADIATION DOSE: 24.68 CTDI (mGy) COMPARISON: No prior exams available for comparison. TECHNIQUE: Multiple contiguous axial images were obtained through the abdomen. Images were obtained using multiple row detector helical technique. Using automated exposure control and adjustment of the mA and/or kV according to patient size, radiation dose was kept as low as reasonably achievable to o btain optimal diagnostic quality images. DICOM format image data is available electronically for rev iew and comparison. FINDINGS: Abdomen CT: The spleen, pancreas, kidneys, adrenals are unremarkable. There is no evidence for any appreciable p athological adenopathy, free fluid, or bowel obstruction. Small sliding hiatal hernia may be present . The liver is questionably fatty. Coronary artery calcifications are seen typically seen with coronary artery disease and clinical tony elation and evaluation is suggested. Pelvic CT: There is no evidence for mass, abscess formation, or any significant adenopathy within the pelvis. CONCLUSION: Essentially unremarkable study except for questionable fatty liver . Electronically signed by: Aubrie Milton MD Board Certified Radiologist 06/20/2018 7:01 PM EST
[2018-06-20] MEDS ORDERED: Naloxone Inj 0.4 MG/ML Vial IV.PUSH ONE (19:14)
[2018-06-20] MEDS ORDERED: Bisacodyl 10 MG Supp RECTAL PRN (19:43)
[2018-06-20] MEDS: Sod Chloride 0.9% Inj 1,000 ML IV.SIG SCH ×2 (19:56→19:57)
[2018-06-20] MEDS: Sod Chloride 0.9% Inj 1,000 ML IV.CONT SCH (20:34)
[2018-06-21] MEDS: Acetaminophen 325 MG Tablet PO PRN ×2 (02:32→08:22)
[2018-06-21] MEDS: Senna/Docusate Sodium 8.6/50 MG Tablet PO SCH ×2 (02:34→11:37)
[2018-06-21 04:39] LABS: Baso % (Auto) 0.3 % (0.0-2.0); Eos % (Auto) 0.6 % (0.0-4.0); Hemoglobin 12.8 gm/dL (11.6-15.3); Lymph # (Auto) 0.5 th/mm3 (1.0-4.8); Lymph % (Auto) 13.2 % (9.0-44.0); Mean Corpuscular HGB Conc 33.6 % (32.0-36.0); Mean Corpuscular Hemoglobin 29.9 pg (27.0-34.0); Mean Corpuscular Volume 89.2 fL (80.0-100.0); Mean Platelet Volume 7.9 fL (7.0-11.0); Mono # (Auto) 0.5 th/mm3 (0.0-0.9); Mono % (Auto) 13.4 % (0.0-8.0); Neut # (Auto) 2.7 th/mm3 (1.8-7.7); Neut % (Auto) 72.5 % (16.0-70.0); Platelet Count 129 th/mm3 (150-450); Red Blood Count 4.27 mil/mm3 (4.00-5.30); Red Cell Distribution Width 12.3 % (11.6-17.2); White Blood Count 3.7 th/mm3 (4.0-11.0)
[2018-06-21 04:42] LABS: Chloride 110 meq/L (98-107); Potassium 3.2 meq/L (3.5-5.1); Sodium 141 meq/L (136-145)
[2018-06-21 04:53] LABS: Alanine Aminotransferase 25 U/L (10-53); Albumin 2.6 g/dL (3.4-5.0); Alkaline Phosphatase 54 U/L (45-117); Anion Gap 11 meq/L (5-15); Aspartate Aminotransferase 23 U/L (15-37); Blood Urea Nitrogen 9 mg/dL (7-18); Calcium 7.5 mg/dL (8.5-10.1); Carbon Dioxide 20.5 meq/L (21.0-32.0); Glomerular Filtration Rate Greater Than 89 mL/min (>89); Glucose,Random 102 mg/dL (74-106); Total Protein 5.8 g/dL (6.4-8.2)
[2018-06-21] MEDS: Ciprofloxacin 400 MG/200 ML 400 MG/200 ML PIGGYBACK IV.SIG SCH ×2 (08:23→21:20)
[2018-06-21] MEDS: Sod Chloride 0.9% Inj 1,000 ML IV.CONT SCH ×2 (11:37→17:48)
--- NOTE | 2018-06-21 11:57 | P.HP ---
History of Present Illness Primary Care Physician: Rahul Butler MD Chief Complaint: Diarrhea, ab pain, nausea History of Present Illness: This is a pleasant 57-year-old female patient with a known medical history of CAD with cardiac stents, hyperlipidemia and hypertension presented to the ED with complaints of abdominal pain as well as nausea and vomiting and diarrhea. Patient states that she awoke early Thursday morning around 2 AM experiencing diffuse abdominal pain with associated nausea and a bout of vomiting. She states that she has had diarrhea over the course that we can which is been barn[place] in color although this morning she states that she possibly noticed some blood in her stool. She denies any recent NSAIDs. Does state that she had a 102.5 subjective fever at home. Denies any sick contacts or recent travel. Patient did follow with Dr. Bauman, roughly 3 years ago and underwent a colonoscopy at that time it was unremarkable. Has never had a EGD. Denies any chest pain or shortness of breath. Has not been able to eat without any vomiting times 2 days. Diarrhea is continued. Negative for C. difficile. Patient does follow with gusset ripper, Dr. Bernal, last seen in December with no changes to her medications. Abdominal/pelvis CT and ED relatively unremarkable. She does states she had an episode of dizziness down in CT scan in the ED. This has resolved. Recently she does complain of mild abdominal pain that has improved overnight as well as intermittent nausea. No further vomiting. - Diagnosis (1) Dehydration (2) Enteritis Inpatient Certification: I certify that the inpatient services were ordered in accordance with Medicare regulations governing the order. This includes certification that hospital inpatient services are reasonable and necessary and in the case of services not specified as inpatient-only under 42 CFR 419.22(n), that they are appropriately provided as inpatient services in accordance to with the 2-midnight benchmark under 43 CFR 412.3(e) Estimated Total Length of Stay (Days): 2 Plans for Post Hospital Care: Not yet determined Review of Systems All other systems reviewed negative except as stated in [facility] - History History Provided By: Patient - Medical History Medical History: Medical History (Last Reviewed 06/21/18 @ 12:06 by Eden Campo) Heart attack - Surgical History Surgical History: Surgical History (Last Reviewed 06/21/18 @ 12:06 by Eden Campo) History of appendectomy History of cardiac cath History of cholecystectomy - Family History Family History: Family History (Last Updated 06/21/18 @ 12:07 by Eden Campo) Father Cardiovascular disease Mother Cardiovascular disease - Social History I have reviewed the patient's Social History: Yes - Tobacco History Second Hand Smoke Exposure: No Tobacco Use In Past 30 Days: No Smoking Status: Former smoker Tobacco Type: Cigarettes - Alcohol History How Often Do You Have a Drink Containing Alcohol: Monthly or less - Substance Use History Substance History: No History of Abuse - Travel History Recent Travel in the [place] Within the Last 8 Weeks: No Recent Travel Out of the Country Within the Last 8 Weeks: No - Immunization History Tetanus Immunization: Unsure Hx Influenza Vaccine This Season: Yes Medications and Allergies Active Medications: Active Medications Acetaminophen (Tylenol) 650 mg PO Q4H PRN PRN Reason: Temp > 100.4 Last Admin: 06/21/18 08:22 Dose: 650 mg Al Hydroxide/Mg Hydroxide (Milk Of Magnesia Liq) 30 ml PO Q12H PRN PRN Reason: Mild Constipation Bisacodyl (Dulcolax Supp) 10 mg RECTAL DAILY PRN PRN Reason: SEVERE CONSITIPATION Ciprofloxacin/Dextrose (Cipro 400 Mg/200 Ml Inj) 400 mg in 200 mls @ 200 mls/ hr IV.SIG Q12H [facility] Last Infusion: 06/21/18 09:23 Dose: Infused Metronidazole/Sodium Chloride (Flagyl 500 Mg Inj) 100 mls @ 100 mls/hr IV.SIG Q8H [facility] Last Admin: 06/21/18 11:48 Dose: 100 mls/hr Sodium Chloride (Ns Inj) 1,000 mls @ 100 mls/hr IV.CONT .Q10H [facility] Last Admin: 06/21/18 11:37 Dose: 100 mls/hr Lactulose (Lactulose Liq) 30 ml PO DAILY PRN PRN Reason: SEVERE CONSITIPATION Ondansetron HCl (Zofran Inj) 4 mg IV.PUSH Q6H PRN PRN Reason: NAUSEA OR VOMITING Senna/Docusate Sodium (Nilsa-Colace) 1 tab PO BID [facility] Last Admin: 06/21/18 11:37 Dose: Not Given Sennosides (Senokot) 17.2 mg PO Q12H PRN PRN Reason: Moderate Constipation Sodium Chloride (Ns Flush) 2 ml IV.FLUSH PRN PRN PRN Reason: FLUSH AFTER USING IV ACCESS Sodium Chloride (Ns Flush) 2 ml IV.FLUSH BID [facility] Last Admin: 06/21/18 09:00 Dose: 2 ml Sodium Chloride (Ns Flush) 2 ml IV.FLUSH PRN PRN PRN Reason: FLUSH AFTER USING IV ACCESS Allergies Allergy/AdvReac Type Severity Reaction Status Date / Time No Known Allergies Allergy Verified 06/20/18 17:43 Home Medications Medication Instructions Recorded Confirmed Type aspirin 81 mg PO DAILY 03/17/18 06/20/18 History atorvastatin [Lipitor] 20 mg PO DAILY 03/17/18 06/20/18 History lisinopril 20 mg PO DAILY 03/17/18 06/20/18 History metoprolol tartrate 12.5 mg PO DAILY 03/17/18 06/20/18 History Exam Vital signs: Vital Signs 06/20/18 17:04 06/20/18 17:54 06/20/18 18:06 Temperature 99.0 F Pulse Rate 110 H 103 H Respiratory Rate 18 18 Blood Pressure 184/86 H Pulse Oximetry 96 95 91 L 06/20/18 18:07 06/20/18 19:05 06/20/18 19:15 Temperature Pulse Rate 82 39 L 44 L Respiratory Rate 16 16 Blood Pressure 124/65 81/40 L 65/39 L Pulse Oximetry 96 93 L 94 L 06/20/18 19:23 06/20/18 19:53 06/20/18 20:48 Temperature Pulse Rate 59 L 57 L 78 Respiratory Rate 16 20 16 Blood Pressure 81/43 L 93/67 L 99/49 L Pulse Oximetry 100 06/20/18 21:30 06/20/18 21:40 06/20/18 21:45 Temperature 98.2 F Pulse Rate 56 L 75 Respiratory Rate 20 Blood Pressure 101/63 Pulse Oximetry 97 97 06/21/18 00:00 06/21/18 04:00 06/21/18 08:00 Temperature 98.6 F 100.2 F H 98.7 F Pulse Rate 61 62 70 Respiratory Rate 17 23 20 Blood Pressure 118/58 L 110/59 L 104/66 Pulse Oximetry 97 98 98 06/21/18 08:50 Temperature Pulse Rate Respiratory Rate 12 Blood Pressure Pulse Oximetry Intake & Output 12/16/18 12/17/18 12/17/18 18:59 06:59 18:59 Intake Total 1000 / 1000 4540 / 4540 200 / 200 Balance 1000 / 1000 4540 / 4540 200 / 200 Weight 102 kg 102.9 kg Intake: IV 1000 / 1000 4300 / 4300 200 / 200 NS Inj 1,000 ML @ 100 mls/hr IV 1000 / 1000 .CONT .Q10H [facility] Rx#:[id number] Cipro 400 MG/200 ML Inj 400 mg 200 / 200 In 200 ml @ 200 mls/hr IV.SIG Q12H [facility] Rx#:[id number] NS Inj 1,000 ML @ 2000 mls/hr 1000 / 1000 3000 / 3000 IV.SIG Q30M [facility] Rx#:[id number] Rocephin Inj 1,000 MG In NS Inj 100 / 100 100 ML @ 200 mls/hr IV.SIG ONCE ONE Rx#:[id number] Flagyl 500 MG Inj 100 ML @ 100 200 / 200 mls/hr IV.SIG Q8H [facility] Rx#: [id number] Oral 240 / 240 Other: # Voids 2 Date of Last Bowel Movement 06/20/18 06/21/18 # Bowel Movements 4 Weight On Admission 103.2 kg Narrative: GENERAL: Well-developed, well-nourished female patient in [facility]. SKIN: Warm and dry. No rash. HEAD: Normocephalic. Atraumatic. EYES: Pupils equal and round. No scleral icterus. No injection or drainage. ENT: No nasal bleeding or discharge. Mucous membranes pink and moist. NECK: Supple. Trachea midline. CARDIOVASCULAR: Regular rate and rhythm. S1, S2 noted. No murmur appreciated. RESPIRATORY: No accessory muscle use. Clear to auscultation. Breath sounds equal bilaterally. GASTROINTESTINAL: Abdomen soft, non-tender, nondistended. Normoactive bowel sounds x4. Nontender MUSCULOSKELETAL: No obvious deformities. Extremities without clubbing, cyanosis , or edema. NEUROLOGICAL: Awake and alert. No obvious cranial nerve deficits. Motor grossly within normal limits. 5/5 muscle strength in bilateral upper and lower extremities. Normal speech. PSYCHIATRIC: Appropriate mood and affect; insight and judgment normal. Results - Labs CBC & Chem 7: 06/21/18 04:20 06/21/18 04:20 Labs: Laboratory Results - last 24 hr 06/20/18 06/20/18 06/20/18 17:52 17:52 19:18 CBC w Diff Auto diff final WBC 8.4 RBC 5.05 Hgb 15.1 Hct 44.7 MCV 88.6 MCH 29.8 MCHC 33.7 RDW 12.1 Plt Count 172 MPV 7.9 Neut % (Auto) 85.1 H Lymph % (Auto) 7.9 L [place] % (Auto) 6.7 Eos % (Auto) 0.0 Baso % (Auto) 0.3 Neut # (Auto) 7.1 Lymph # (Auto) 0.7 L [place] # (Auto) 0.6 Eos # (Auto) 0.0 Baso # (Auto) 0.0 WBC Differential . Differential Comment . Sodium 134 L Potassium 3.4 L Chloride 103 Carbon Dioxide 19.4 L Anion Gap 12 BUN 13 Creatinine 0.73 Estimated GFR 82 L POC Glucose 85 Random Glucose 102 Calcium 8.4 L Total Bilirubin 1.1 H AST 17 ALT 17 Alkaline Phosphatase 69 Total Protein 7.3 Albumin 3.4 Lipase 89 Stl C.difficile DNA Amp St C. diff Tox Epid 027 06/21/18 06/21/18 06/21/18 02:00 04:20 04:20 CBC w Diff Auto diff final WBC 3.7 L D RBC 4.27 Hgb 12.8 D Hct 38.0 MCV 89.2 MCH 29.9 MCHC 33.6 RDW 12.3 Plt Count 129 L MPV 7.9 Neut % (Auto) 72.5 H Lymph % (Auto) 13.2 [place] % (Auto) 13.4 H Eos % (Auto) 0.6 Baso % (Auto) 0.3 Neut # (Auto) 2.7 Lymph # (Auto) 0.5 L [place] # (Auto) 0.5 Eos # (Auto) 0.0 Baso # (Auto) 0.0 WBC Differential . Differential Comment . Sodium 141 Potassium 3.2 L Chloride 110 H Carbon Dioxide 20.5 L Anion Gap 11 BUN 9 Creatinine 0.55 Estimated GFR Greater than 89 POC Glucose Random Glucose 102 Calcium 7.5 L D Total Bilirubin 0.6 AST 23 ALT 25 Alkaline Phosphatase 54 Total Protein 5.8 L D Albumin 2.6 L D Lipase Stl C.difficile DNA Amp Negative St C. diff Tox Epid 027 Negative - Imaging Impressions Abdomen/Pelvis CT 06/20/18 17:52 CONCLUSION: Essentially unremarkable study except for questionable fatty liver . Caprini VTE Risk Assessment Caprini VTE Risk Assessment: No/Low Risk (score <= 1) Caprini Risk Assessment Model: Point Value = 1 Point Value = 2 Point Value = 3 Point Value = 5 Age 41-60 Minor surgery BMI > 25 kg/m2 Swollen legs Varicose veins or History of unexplained or recurrent spontaneous Oral contraceptives or hormone replacement Sepsis (< 1 month) Serious lung disease, including pneumonia (< 1 month) Abnormal pulmonary function Acute myocardial infarction Congestive heart failure (< 1 month) History of inflammatory bowel disease Medical patient at bed rest Age 61-74 Arthroscopic surgery Major open surgery (> 45 min) Laparoscopic surgery (> 45 min) Malignancy Confined to bed (> 72 hours) Immobilizing plaster cast Central venous access Age >= 75 History of VTE Family history of VTE Factor V Leiden Prothrombin [id number] Lupus anticoagulant Anticardiolipin antibodies Elevated serum homocysteine Heparin-induced thrombocytopenia Other congenital or acquired thrombophilia Stroke (< 1 month) Elective arthroplasty Hip, pelvis, or leg fracture Acute spinal cord injury (< 1 month) Prophylaxis Regimen: Total Risk Factor Score Risk Level Prophylaxis Regimen 0-1 Low Early ambulation 2 Moderate Order ONE of the following: *Sequential Compression Device (SCD) *Heparin 5000 units SQ BID 3-4 Higher Order ONE of the following medications: *Heparin 5000 units SQ TID *Enoxaparin/Lovenox 40 mg SQ daily (WT < 150 kg, CrCl > 30 mL/min) *Enoxaparin/Lovenox 30 mg SQ daily (WT < 150 kg, CrCl > 10-29 mL/min) *Enoxaparin/Lovenox 30 mg SQ BID (WT < 150 kg, CrCl > 30 mL/min) AND/OR *Sequential Compression Device (SCD) 5 or more Highest Order ONE of the following medications: *Heparin 5000 units SQ TID (Preferred with Epidurals) *Enoxaparin/Lovenox 40 mg SQ daily (WT < 150 kg, CrCl > 30 mL/min) *Enoxaparin/Lovenox 30 mg SQ daily (WT < 150 kg, CrCl > 10-29 mL/min) *Enoxaparin/Lovenox 30 mg SQ BID (WT < 150 kg, CrCl > 30 mL/min) AND *Sequential Compression Device (SCD) Assessment and Plan - Assessment (1) Dehydration Code(s): E86.0 - Dehydration Status: Acute (2) Enteritis Code(s): K52.9 - Noninfective gastroenteritis and colitis, unspecified Status : Acute - Plan This is a 57-year-old female patient presents the ED with: Abdominal pain Nausea and vomiting Diarrhea -Patient complains of a 1 day history of abdominal pain, nausea and vomiting as well as subjective fevers of 102.5 at home. -Abdominal/pelvis CT reviewed showing no acute findings for the pain. -Stool studies sent and negative for C. difficile. Awaiting further culture. Follow. -100.2 fever overnight. Will check blood cultures. Follow. Add lactic acid. Check occult stool. -CBC and BMP reviewed, essentially unremarkable. -Pain control with IV morphine as needed. -Antiemetics as needed. -Patient started on IV Flagyl and Cipro, will continue for now. -Ensure hydration, continue IV fluid. Patient received 3 L bolus in ED. -Trend H&H, dropped from 15 to 12. Likely secondary to dilutional, although will rule out any possibility of bleeding. -May need GI consult if active bleeding. Follow. Hypokalemia -Suspect secondary to diarrhea. -K 3.2. Replete as needed. Transient hypotension in ED -BP is stable at this time. Does complain of one bout of hypotension in the ED status post IV Morphine. -Will check orthostatics. Continue to monitor BP trends. Continue IVF. History of CAD with cardiac stents Hypertension, chronic -Will continue home medications. -Monitor blood pressure trends. Hyperlipidemia, chronic: We will continue home statin. DVT prophylaxis: SCDs.
[2018-06-21] MEDS: Morphine Inj 4 MG/ML Vial IV.PUSH PRN ×2 (12:39→17:41)
--- NOTE | 2018-06-21 14:32 | ECG ---
Date Performed: 06/20/2018 Time Performed: 19:18:36 PTAGE: 57 years EKG: SINUS BRADYCARDIA MINIMAL VOLTAGE CRITERIA FOR LVH, CONSIDER NORMAL VARIANT POSSIBLE ANTERI OR MYOCARDIAL INFARCTION POSSIBLE INFERIOR MYOCARDIAL INFARCTION MODERATE T-WAVE ABNORMALITY, CONSIDE R LATERAL ISCHEMIA ABNORMAL ECG Compared to PREVIOUS TRACING sinus rate is slower anteroseptal OH pattern remains PREVIOUS TRACIN12/19/2016 17.54 DOCTOR: Alex Hicks Interpretating Date/Time 06/21/2018 14:31:05
[2018-06-21 17:32] LABS: Hematocrit 39.2 % (35.0-46.0)
[2018-06-22] MEDS: Sod Chloride 0.9% Inj 1,000 ML IV.CONT SCH ×2 (03:39→14:04)
[2018-06-22] MEDS: Morphine Inj 4 MG/ML Vial IV.PUSH PRN (05:34)
[2018-06-22 05:49] LABS: Bilirubin,Urine Negative (Negative); Clarity,Urine Clear (Clear); Color,Urine Yellow (Yellw/Straw); Glucose,Urine (UA) Negative (Negative); Leukocyte Esterase,Urine Trace (Negative); Nitrite,Urine Positive (Negative); Specific Gravity,Urine Greater/Equal 1.030 (1.002-1.035); Urobilinogen,Urine 0.2 mg/dL (Less than 2)
[2018-06-22 06:04] LABS: Bacteria,Urine Few /hpf; Squamous Epithelial Cell,Urine 0-5 /hpf (0-5); WBC,Urine 0-5 /hpf (0-5)
[2018-06-22 06:43] LABS: Baso % (Auto) 0.5 % (0.0-2.0); Eos % (Auto) 0.6 % (0.0-4.0); Hemoglobin 12.3 gm/dL (11.6-15.3); Lymph % (Auto) 23.7 % (9.0-44.0); Mean Corpuscular HGB Conc 33.2 % (32.0-36.0); Mean Corpuscular Hemoglobin 29.6 pg (27.0-34.0); Mean Corpuscular Volume 89.4 fL (80.0-100.0); Mean Platelet Volume 8.1 fL (7.0-11.0); Mono # (Auto) 0.6 th/mm3 (0.0-0.9); Mono % (Auto) 14.4 % (0.0-8.0); Neut # (Auto) 2.5 th/mm3 (1.8-7.7); Neut % (Auto) 60.8 % (16.0-70.0); Platelet Count 128 th/mm3 (150-450); Red Blood Count 4.14 mil/mm3 (4.00-5.30); White Blood Count 4.1 th/mm3 (4.0-11.0)
[2018-06-22 06:55] LABS: Chloride 108 meq/L (98-107); Potassium 3.3 meq/L (3.5-5.1); Sodium 139 meq/L (136-145)
[2018-06-22 07:00] LABS: Calcium 7.6 mg/dL (8.5-10.1)
[2018-06-22 07:01] LABS: Anion Gap 9 meq/L (5-15); Blood Urea Nitrogen 7 mg/dL (7-18); Carbon Dioxide 22.2 meq/L (21.0-32.0); Glucose,Random 76 mg/dL (74-106); Magnesium 1.8 mg/dL (1.5-2.5)
[2018-06-22 07:04] LABS: Glomerular Filtration Rate Greater Than 89 mL/min (>89)
[2018-06-22] MEDS: Ciprofloxacin 400 MG/200 ML 400 MG/200 ML PIGGYBACK IV.SIG SCH ×2 (09:39→20:46)
[2018-06-22] MEDS: Metoprolol Tartrate 25 MG Tablet PO SCH (09:40)
[2018-06-22] MEDS: Lisinopril 20 MG Tablet PO SCH (09:40)
--- NOTE | 2018-06-22 10:27 | P.PNIM ---
Subjective Interval history: 57-year-old female who is seen examined today for follow-up on nausea , vomiting, abdominal pain, diarrhea. Patient still n.p.o. at this time. Only taken sips of water. States that she still having liquid stools at least 6 times since last night. Patient indicates that she still having significant abdominal pain that is not improving. Vital signs are improved. Patient remains afebrile. Physical Exam Vital signs: Vital Signs 06/21/18 12:00 06/21/18 12:46 06/21/18 12:47 Temperature 98.4 F Pulse Rate 72 74 72 Respiratory Rate 24 19 15 Blood Pressure 136/77 137/77 130/75 Pulse Oximetry 96 06/21/18 14:51 06/21/18 16:00 06/21/18 20:00 Temperature 99.2 F 100.0 F H Pulse Rate 78 89 Respiratory Rate 16 20 18 Blood Pressure 124/69 130/72 Pulse Oximetry 99 94 L 06/21/18 21:20 06/22/18 00:00 06/22/18 00:05 Temperature 98.6 F Pulse Rate 76 58 L Respiratory Rate 18 Blood Pressure 134/63 Pulse Oximetry 97 96 06/22/18 04:00 06/22/18 05:11 06/22/18 08:00 Temperature 97.4 F L 98.3 F Pulse Rate 74 65 Respiratory Rate 18 12 15 Blood Pressure 133/62 127/61 Pulse Oximetry 96 97 Intake & Output 06/21/18 06/22/18 06/22/18 18:59 06:59 18:59 Intake Total 1300 / 1300 1600 / 1600 Output Total 700 / 700 100 / 100 Balance 600 / 600 1500 / 1500 Weight 104.9 kg Intake: IV 1300 / 1300 1400 / 1400 NS Inj 1,000 ML @ 100 mls/hr IV 1000 / 1000 1000 / 1000 .CONT .Q10H [facility] Rx#:[id number] Cipro 400 MG/200 ML Inj 400 mg 200 / 200 200 / 200 In 200 ml @ 200 mls/hr IV.SIG Q12H [facility] Rx#:[id number] Flagyl 500 MG Inj 100 ML @ 100 100 / 100 200 / 200 mls/hr IV.SIG Q8H [facility] Rx#: [id number] Oral 200 / 200 Output: Urine 100 / 100 Urine/Stool Mix 700 / 700 Other: # Voids 2 Date of Last Bowel Movement 06/21/18 06/21/18 Narrative: GENERAL: Well-developed, well-nourished, in no acute distress. alert and orientated HEENT: Head is normocephalic without any lesions or masses noted. Facial features are symmetric. Eyes: Extraocular muscles are intact. Conjunctivae were clear. NECK: Supple without any masses. Trachea midline no deviation. No JVD, CARDIAC: Regular rhythm, regular rate. S1/S2 are heard. No murmurs gallops or rubs. LUNGS: Clear to auscultation bilaterally. No wheeze, rhonchi or rales. No use of accessory muscles on inspiration or expiration. ABDOMEN: Soft, mild diffuse abdominal tenderness. Nondistended. Bowel sounds heard in all 4 quadrants. No organomegaly or masses. Negative rebound, negative guarding EXTREMITIES: No edema, pulses are equal bilaterally. No cyanosis or clubbing NEUROLOGY: Mood and affect appear appropriate. Cranial nerves II through XII grossly intact. Moving all extremities, speech is clear Results - Labs CBC & Chem 7: 06/22/18 05:50 06/22/18 05:50 Laboratory Results - last 24 hr 06/21/18 06/21/18 06/22/18 13:15 17:15 05:45 CBC w Diff WBC RBC Hgb 13.0 Hct 39.2 MCV MCH MCHC RDW Plt Count MPV Neut % (Auto) Lymph % (Auto) [place] % (Auto) Eos % (Auto) Baso % (Auto) Neut # (Auto) Lymph # (Auto) [place] # (Auto) Eos # (Auto) Baso # (Auto) WBC Differential Differential Comment Sodium Potassium Chloride Carbon Dioxide Anion Gap BUN Creatinine Estimated GFR Random Glucose Lactic Acid 1.1 Calcium Magnesium Urine Color Yellow Urine Clarity Clear Urine pH 5.0 Ur Specific [place] Greater/equal 1.030 Urine Protein Negative Urine Glucose (UA) Negative Urine Ketones 40 H Urine Occult Blood Small H Urine Nitrate Positive H Urine Bilirubin Negative Urine Urobilinogen 0.2 Ur Leukocyte Esterase Trace H Urine RBC 4-15 H Urine WBC 0-5 Ur Squamous Epith Cells 0-5 Urine Bacteria Few H Micro UA Comment Culture indicated Ur Microscopic Review Microscopic reviewed Urine Culture Comments Culture indicated 06/22/18 06/22/18 05:50 05:50 CBC w Diff Auto diff final WBC 4.1 RBC 4.14 Hgb 12.3 Hct 37.0 MCV 89.4 MCH 29.6 MCHC 33.2 RDW 12.0 Plt Count 128 L MPV 8.1 Neut % (Auto) 60.8 Lymph % (Auto) 23.7 [place] % (Auto) 14.4 H Eos % (Auto) 0.6 Baso % (Auto) 0.5 Neut # (Auto) 2.5 Lymph # (Auto) 1.0 [place] # (Auto) 0.6 Eos # (Auto) 0.0 Baso # (Auto) 0.0 WBC Differential . Differential Comment . Sodium 139 Potassium 3.3 L Chloride 108 H Carbon Dioxide 22.2 Anion Gap 9 BUN 7 Creatinine 0.44 L Estimated GFR Greater than 89 Random Glucose 76 Lactic Acid Calcium 7.6 L Magnesium 1.8 Urine Color Urine Clarity Urine pH Ur Specific [place] Urine Protein Urine Glucose (UA) Urine Ketones Urine Occult Blood Urine Nitrate Urine Bilirubin Urine Urobilinogen Ur Leukocyte Esterase Urine RBC Urine WBC Ur Squamous Epith Cells Urine Bacteria Micro UA Comment Ur Microscopic Review Urine Culture Comments Microbiology 06/21/18 12:50 Stool Stool Occult Blood (CHASE) - Final Hemoccult positive 06/21/18 02:00 Stool Stool for WBCs - Final Many WBC's Assessment and Plan - Assessment (1) Dehydration Code(s): E86.0 - Dehydration Status: Acute (2) Enteritis Code(s): K52.9 - Noninfective gastroenteritis and colitis, unspecified Status : Acute - Plan Abdominal pain Nausea, vomiting and diarrhea -Likely gastroenteritis -Abdominal/pelvis CT reviewed showing no acute findings for the pain. -Stool studies are negative for C. difficile -Stool has many WBCs -Obtain stool culture for enteric pathogens -Pain control with [place] and morphine for breakthrough -Continue Cipro and Flagyl Urinary tract infection -Patient is on Cipro IV at this time -Continue monitor cultures for appropriate antibiotics Anemia -Patient with acute hemoglobin drop from 15-12 likely secondary to dehydration -Hemoglobin is stable at this time -Stool for Hemoccult is positive, will need to continue monitor hemoglobin and if continues fall may need bowl sander consultation, if hemoglobin remains stable patient could benefit from outpatient bowl sander workup Hypokalemia -Suspect secondary to diarrhea, and IV fluids. -Changed to normal saline with potassium -Continue monitor replete as needed Transient hypotension in ED, resolved -BP is stable at this time. History of CAD with cardiac stents Hypertension, chronic -Will continue home medications. -Monitor blood pressure trends. Hyperlipidemia, chronic: -continue home statin. DVT prophylaxis: -Sequential compression devices Discharge Planning: Discharge planning 24-48 hours once patient tolerating diet, diarrhea improved
[2018-06-23 08:41] LABS: Baso % (Auto) 0.6 % (0.0-2.0); Eos % (Auto) 0.7 % (0.0-4.0); Hematocrit 36.8 % (35.0-46.0); Hemoglobin 12.3 gm/dL (11.6-15.3); Lymph # (Auto) 1.1 th/mm3 (1.0-4.8); Lymph % (Auto) 22.7 % (9.0-44.0); Mean Corpuscular HGB Conc 33.4 % (32.0-36.0); Mean Corpuscular Hemoglobin 30.2 pg (27.0-34.0); Mean Corpuscular Volume 90.6 fL (80.0-100.0); Mean Platelet Volume 8.2 fL (7.0-11.0); Mono # (Auto) 0.5 th/mm3 (0.0-0.9); Mono % (Auto) 10.8 % (0.0-8.0); Neut # (Auto) 3.2 th/mm3 (1.8-7.7); Neut % (Auto) 65.2 % (16.0-70.0); Platelet Count 147 th/mm3 (150-450); Red Blood Count 4.06 mil/mm3 (4.00-5.30); Red Cell Distribution Width 12.8 % (11.6-17.2); White Blood Count 4.8 th/mm3 (4.0-11.0)
[2018-06-23 08:46] LABS: Chloride 109 meq/L (98-107); Potassium 3.8 meq/L (3.5-5.1); Sodium 141 meq/L (136-145)
[2018-06-23 08:49] LABS: Calcium 7.7 mg/dL (8.5-10.1)
[2018-06-23 08:50] LABS: Anion Gap 6 meq/L (5-15); Blood Urea Nitrogen 4 mg/dL (7-18); Carbon Dioxide 26.2 meq/L (21.0-32.0); Glucose,Random 81 mg/dL (74-106)
[2018-06-23 08:53] LABS: Glomerular Filtration Rate Greater Than 89 mL/min (>89)
[2018-06-23] MEDS: Metoprolol Tartrate 25 MG Tablet PO SCH (09:33)
[2018-06-23] MEDS: Ciprofloxacin 400 MG/200 ML 400 MG/200 ML PIGGYBACK IV.SIG SCH ×2 (09:34→20:43)
[2018-06-23] MEDS: Lisinopril 20 MG Tablet PO SCH (10:00)
--- NOTE | 2018-06-23 13:11 | P.PNIM ---
Subjective Interval history: 57-year-old female who is seen examined today for follow-up on abdominal pain, diarrhea illness. Patient states that she only had 3 bowel movements overnight. Her as nursing documentation does not indicate any bowel movements. Patient is not appear to be in any significant abdominal pain at this time. She is tolerating liquid diet. Discussed with her that we will advance the diet and see how she tolerates. Patient remains afebrile. Physical Exam Vital signs: Vital Signs 06/22/18 16:00 06/22/18 18:17 06/22/18 20:00 Temperature 97.2 F L 97.3 F L Pulse Rate 54 L 59 L Respiratory Rate 15 17 Blood Pressure 103/50 L 118/56 L 106/51 L Pulse Oximetry 99 97 06/23/18 00:00 06/23/18 04:00 06/23/18 08:00 Temperature 98.0 F 98.5 F Pulse Rate 55 L 53 L Respiratory Rate 20 20 18 Blood Pressure 118/58 L 159/72 H Pulse Oximetry 97 99 06/23/18 09:36 06/23/18 10:06 06/23/18 12:00 Temperature 98.2 F Pulse Rate 47 L Respiratory Rate 18 18 18 Blood Pressure 106/48 L Pulse Oximetry 96 Intake & Output 06/22/18 06/23/18 06/23/18 18:59 06:59 18:59 Intake Total 2019 1674 / 1674 1200 / 1200 Balance 2019 1674 / 1674 1200 / 1200 Weight 100.6 kg Intake: IV 1300 / 1300 1674 / 1674 1200 / 1200 NS + KCl 20 mEq Inj 1,000 ML @ 1274 / 1274 1000 / 1000 100 mls/hr IV.CONT .Q10H G[facility] Rx #:[id number] NS Inj 1,000 ML @ 100 mls/hr IV 1000 / 1000 .CONT .Q10H GABRIEL Rx#:[id number] Cipro 400 MG/200 ML Inj 400 mg 200 / 200 200 / 200 200 / 200 In 200 ml @ 200 mls/hr IV.SIG Q12H G[facility]RIEL Rx#:[id number] Flagyl 500 MG Inj 100 ML @ 100 100 / 100 200 / 200 mls/hr IV.SIG Q8H GABRIEL Rx#: [id number] Oral 720 / 720 Other: # Voids 5 Date of Last Bowel Movement 06/23/18 # Bowel Movements 0 Narrative: GENERAL: Well-developed, well-nourished, in no acute distress. alert and orientated HEENT: Head is normocephalic without any lesions or masses noted. Facial features are symmetric. Eyes: Extraocular muscles are intact. Conjunctivae were clear. NECK: Supple without any masses. Trachea midline no deviation. No JVD, CARDIAC: Regular rhythm, regular rate. S1/S2 are heard. No murmurs gallops or rubs. LUNGS: Clear to auscultation bilaterally. No wheeze, rhonchi or rales. No use of accessory muscles on inspiration or expiration. ABDOMEN: Soft, nontender. Nondistended. Bowel sounds heard in all 4 quadrants. No organomegaly or masses. Negative rebound, negative guarding EXTREMITIES: No edema, pulses are equal bilaterally. No cyanosis or clubbing NEUROLOGY: Mood and affect appear appropriate. Cranial nerves II through XII grossly intact. Moving all extremities, speech is clear Results - Labs CBC & Chem 7: 06/23/18 08:05 06/23/18 08:05 Laboratory Results - last 24 hr 06/22/18 06/23/18 06/23/18 05:45 08:05 08:05 CBC w Diff Auto diff final WBC 4.8 RBC 4.06 Hgb 12.3 Hct 36.8 MCV 90.6 MCH 30.2 MCHC 33.4 RDW 12.8 Plt Count 147 L MPV 8.2 Neut % (Auto) 65.2 Lymph % (Auto) 22.7 [place] % (Auto) 10.8 H Eos % (Auto) 0.7 Baso % (Auto) 0.6 Neut # (Auto) 3.2 Lymph # (Auto) 1.1 [place] # (Auto) 0.5 Eos # (Auto) 0.0 Baso # (Auto) 0.0 WBC Differential . Differential Comment . Sodium 141 Potassium 3.8 Chloride 109 H Carbon Dioxide 26.2 Anion Gap 6 BUN 4 L Creatinine 0.55 Estimated GFR Greater than 89 Random Glucose 81 Calcium 7.7 L Urine Color Yellow Urine Clarity Clear Urine pH 5.0 Ur Specific [place] Greater/equal 1.030 Urine Protein Negative Urine Glucose (UA) Negative Urine Ketones 40 H Urine Occult Blood Small H Urine Nitrate Positive H Urine Bilirubin Negative Urine Urobilinogen 0.2 Ur Leukocyte Esterase Trace H Urine RBC 4-15 H Urine WBC 0-5 Ur Squamous Epith Cells 0-5 Urine Bacteria Few H Micro UA Comment Culture indicated Ur Microscopic Review Microscopic reviewed Urine Culture Comments Culture indicated Microbiology 06/22/18 05:45 Clean Catch Urine Urine Culture - Preliminary Group D Enterococcus 06/22/18 15:00 Stool Enteric Pathogens (PCR) - Final No enteric pathogens detected by PCR (No Salmonella sp., Shigella sp., Campylobacter sp., Yersinia enterocolitica, Vibrio sp., Norovirus, or EHEC (Shiga Toxin 1 or Shiga Toxin 2) detected. 06/21/18 13:15 Blood - Peripheral Aerobic Blood Culture - Preliminary No growth in 2 days 06/21/18 13:15 Blood - Peripheral Anaerobic Blood Culture - Preliminary No growth in 2 days 06/21/18 13:00 Blood - Peripheral Aerobic Blood Culture - Preliminary No growth in 2 days 06/21/18 13:00 Blood - Peripheral Anaerobic Blood Culture - Preliminary No growth in 2 days Assessment and Plan - Assessment (1) Dehydration Code(s): E86.0 - Dehydration Status: Acute (2) Enteritis Code(s): K52.9 - Noninfective gastroenteritis and colitis, unspecified Status : Acute - Plan Abdominal pain Nausea, vomiting and diarrhea -Likely gastroenteritis -Abdominal/pelvis CT reviewed showing no acute findings for the pain. -Stool studies are negative for C. difficile -Stool has many WBCs -Stool for enteric pathogens were negative -Pain control with [place] and morphine for breakthrough, patient has not required any breakthrough medication -Continue Cipro and Flagyl -Advance diet and monitor for toleration. Urinary tract infection -Patient is on Cipro IV at this time -Cultures indicate 10-15,000 group D enterococcus, Anemia, stable -Patient with acute hemoglobin drop from 15-12 likely secondary to dehydration -Hemoglobin continues to be stable -Stool for Hemoccult is positive, will need to continue monitor hemoglobin and if continues fall may need dynamic balancer consultation, if hemoglobin remains stable patient could benefit from outpatient dynamic balancer workup Hypokalemia, corrected -Suspect secondary to diarrhea, and IV fluids. -Changed to normal saline with potassium -Continue monitor replete as needed Transient hypotension in ED, resolved -BP is stable at this time. History of CAD with cardiac stents Hypertension, chronic -Will continue home medications. -Monitor blood pressure trends. Hyperlipidemia, chronic: -continue home statin. DVT prophylaxis: -Sequential compression devices Discharge Planning: Anticipate discharge in 24 hours patient remains stable and tolerating diet
--- NOTE | 2018-06-24 08:26 | P.DS ---
Date of admission: 06/20/18 19:45 Primary care physician: Rahul Butler MD Attending physician on discharge: Vangie Davis Anticipated date of discharge: 06/24/18 Brief History from admission: This is a pleasant 57-year-old female patient with a known medical history of CAD with cardiac stents, hyperlipidemia and hypertension presented to the ED with complaints of abdominal pain as well as nausea and vomiting and diarrhea. Patient states that she awoke early Thursday morning around 2 AM experiencing diffuse abdominal pain with associated nausea and a bout of vomiting. She states that she has had diarrhea over the course that we can which is been [place] in color although this morning she states that she possibly noticed some blood in her stool. She denies any recent NSAIDs. Does state that she had a 102.5 subjective fever at home. Denies any sick contacts or recent travel. Patient did follow with Dr. Bauman, roughly 3 years ago and underwent a colonoscopy at that time it was unremarkable. Has never had a EGD. Denies any chest pain or shortness of breath. Has not been able to eat without any vomiting times 2 days. Diarrhea is continued. Negative for C. difficile. Patient does follow with rn staff, Dr. Bernal, last seen in December with no changes to her medications. Abdominal/pelvis CT and ED relatively unremarkable. She does states she had an episode of dizziness down in CT scan in the ED. This has resolved. Recently she does complain of mild abdominal pain that has improved overnight as well as intermittent nausea. No further vomiting. DS: Diagnosis - Discharge Diagnosis (1) Dehydration Status: Acute (2) Enteritis Status: Acute DS: Summary Hospital Course: 57-year-old female with a known history of coronary disease with cardiac stents, hyperlipidemia and hypertension presented to the emergency department with complaints of abdominal pain as well as nausea and vomiting and diarrhea. Patient was found to have signs of dehydration. Patient admitted the hospital for further evaluation. Patient was admitted with IV fluids, empirical antibiotic Cipro and Flagyl. Patient did have complete workup with stool studies of C. difficile which was negative, enteric pathogens which was negative, many WBC seen in the stool. After cultures were negative empirical antibiotics were discontinued. Urine analysis did indicate need for culture. Culture was performed which did grow out 10-15,000 colonies of Enterococcus faecalis. Patient was admitted n.p.o. status and was full diet without any recurrent nausea, vomiting. Patient states that she is still having loose stools. Discussed with the patient she could have had possible viral gastroenteritis versus food poisoning. Patient did understand. Patient clinically stable at this time. We will plan discharge accordingly. - Time Spent with Patient Total time spent providing and/or coordinating discharge services: Greater than 30 minutes - Quality: VTE Deep Vein Thrombosis/Pulmonary Embolism Present on Admission: No Exam Vital signs: Vital Signs 06/23/18 09:36 06/23/18 10:06 06/23/18 12:00 Temperature 98.2 F Pulse Rate 47 L Respiratory Rate 18 18 18 Blood Pressure 106/48 L Pulse Oximetry 96 06/23/18 16:00 06/23/18 17:34 06/23/18 18:04 Temperature 98.3 F Pulse Rate 55 L Respiratory Rate 18 18 18 Blood Pressure 137/66 Pulse Oximetry 98 06/23/18 20:00 06/24/18 00:00 06/24/18 04:00 Temperature 96.3 F L 96.8 F L Pulse Rate 58 L 69 Respiratory Rate 20 20 20 Blood Pressure 107/56 L 114/57 L Pulse Oximetry 99 96 Intake & Output 06/23/18 06/24/18 06/24/18 18:59 06:59 18:59 Intake Total 1700 / 1700 1400 / 1400 Balance 1700 / 1700 1400 / 1400 Weight 102 kg Intake: IV 1300 / 1300 1400 / 1400 NS + KCl 20 mEq Inj 1,000 ML @ 1000 / 1000 1000 / 1000 100 mls/hr IV.CONT .Q10H [facility] Rx #:[id number] Cipro 400 MG/200 ML Inj 400 mg 200 / 200 200 / 200 In 200 ml @ 200 mls/hr IV.SIG Q12H G[facility]EL Rx#:[id number] Flagyl 500 MG Inj 100 ML @ 100 100 / 100 200 / 200 mls/hr IV.SIG Q8H GABRIEL Rx#: [id number] Oral 400 / 400 Other: # Voids 4 2 Date of Last Bowel Movement 06/23/18 06/23/18 # Bowel Movements 4 Narrative: GENERAL: Well-developed, well-nourished, in no acute distress. alert and orientated HEENT: Head is normocephalic without any lesions or masses noted. Facial features are symmetric. Eyes: Extraocular muscles are intact. Conjunctivae were clear. NECK: Supple without any masses. Trachea midline no deviation. No JVD, CARDIAC: Regular rhythm, regular rate. S1/S2 are heard. No murmurs gallops or rubs. LUNGS: Clear to auscultation bilaterally. No wheeze, rhonchi or rales. No use of accessory muscles on inspiration or expiration. ABDOMEN: Soft, nontender. Nondistended. Bowel sounds heard in all 4 quadrants. No organomegaly or masses. Negative rebound, negative guarding EXTREMITIES: No edema, pulses are equal bilaterally. No cyanosis or clubbing NEUROLOGY: Mood and affect appear appropriate. Cranial nerves II through XII grossly intact. Moving all extremities, speech is clear Results Procedures completed during hospitalization: None Labs on day of discharge: Labs from last 24 hours 06/23/18 06/23/18 06/22/18 08:05 08:05 05:45 CBC w Diff Auto diff final WBC 4.8 RBC 4.06 Hgb 12.3 Hct 36.8 MCV 90.6 MCH 30.2 MCHC 33.4 RDW 12.8 Plt Count 147 L MPV 8.2 Neut % (Auto) 65.2 Lymph % (Auto) 22.7 [place] % (Auto) 10.8 H Eos % (Auto) 0.7 Baso % (Auto) 0.6 Neut # (Auto) 3.2 Lymph # (Auto) 1.1 [place] # (Auto) 0.5 Eos # (Auto) 0.0 Baso # (Auto) 0.0 WBC Differential . Differential Comment . Sodium 141 Potassium 3.8 Chloride 109 H Carbon Dioxide 26.2 Anion Gap 6 BUN 4 L Creatinine 0.55 Estimated GFR Greater than 89 Random Glucose 81 Calcium 7.7 L Urine Color Yellow Urine Clarity Clear Urine pH 5.0 Ur Specific [place] Greater/equal 1.030 Urine Protein Negative Urine Glucose (UA) Negative Urine Ketones 40 H Urine Occult Blood Small H Urine Nitrate Positive H Urine Bilirubin Negative Urine Urobilinogen 0.2 Ur Leukocyte Esterase Trace H Urine RBC 4-15 H Urine WBC 0-5 Ur Squamous Epith Cells 0-5 Urine Bacteria Few H Micro UA Comment Culture indicated Ur Microscopic Review Microscopic reviewed Urine Culture Comments Culture indicated Preliminary micro results at discharge 06/21/18 13:15 Aerobic Blood Culture - Preliminary Blood - Peripheral No growth in 2 days Anaerobic Blood Culture - Preliminary No growth in 2 days 06/21/18 13:00 Aerobic Blood Culture - Preliminary Blood - Peripheral No growth in 2 days Anaerobic Blood Culture - Preliminary No growth in 2 days - Impressions ITS Impressions Abdomen/Pelvis CT 06/20/18 17:52 CONCLUSION: Essentially unremarkable study except for questionable fatty liver . Discharge Plan - Discharge Disposition Patient Disposition: 01 Discharge Home - Discharge Condition Condition: Stable - Discharge Order Discharge Orders: Discharge Order (Routine); Ordered 06/24/18 Ordered By: Albin Luciano - Discharge Details Anticipated Discharge Date: 06/24/18 - Physicians Team Primary Care Provider: Rahul Butler Attending Provider: Vangie Davis
[2018-06-24] MEDS: Lisinopril 20 MG Tablet PO SCH (08:27)
[2018-06-24] MEDS: Metoprolol Tartrate 25 MG Tablet PO SCH (08:28)
[2018-06-24 08:54] VITALS: RESP 17
[2018-06-24 12:30] VITALS: BP 122/56; PULSE 71; TEMP 98; O2SAT 98
== END 2018-06-24 13:21 | disposition home or self-care (01) ==
LOC: PHEFT 16:55 → INTOOBSV 19:45 → PHEDA 19:45 → PHICU 21:15 → PH3 06-21 15:17
PROVIDERS: ADMIT Hospitalist; ATTEND Hospitalist